=== PATIENT | female | born 1940 | race Caucasian/White ===

== ENCOUNTER 2017-02-04 14:34 | Inpatient (IN) | payer MEDICARE, BC ==
[~2017-02-04] VITALS: Ht 157.5 cm; Wt 62.6 kg
[2017-02-04 14:00] VITALS: BP 118/65; PULSE 89; RESP 18; Ht 157.5 cm; Wt 62.6 kg
[2017-02-04] MEDS ORDERED: LORAZEPAM 0.5 MG TAB PO PRN (17:00)
[2017-02-04] MEDS ORDERED: ACETAMINOPHEN 650 MG SUPP PR PRN (17:00)
[2017-02-04] MEDS: ALBUTEROL 0.083% (NEB) 2.5 MG/3 ML AMP INH SCH (17:38)
[2017-02-04 17:46] LABS: ADD UMIC YES; UR ASCORBIC ACID 20 mg/dL (NEGATIVE); UR BILIRUBIN (Dip) NEGATIVE (NEGATIVE); UR BLOOD (Dip) 3+ mg/dL (NEGATIVE); UR CLARITY CLEAR (CLEAR); UR COLOR STRAW (YELLOW); UR GLUCOSE (Dip) NEGATIVE (NEGATIVE); UR KETONES (Dip) NEGATIVE (NEGATIVE); UR LEUKOCYTE ESTERASE (Dip) 1+ Leu/ul (NEGATIVE); UR NITRITE (Dip) NEGATIVE (NEGATIVE); UR RBC 1 /HPF (0-5); UR SPECIFIC GRAVITY (Dip) 1.006 (1.003-1.030); UR TOTAL PROTEIN (Dip) NEGATIVE (NEGATIVE); UR UROBILINOGEN (Dip) NEGATIVE (NEGATIVE)
[2017-02-04] MEDS ORDERED: MICONAZOLE 2% 57 GM Ointment TOP PRN (18:00)
--- NOTE | 2017-02-04 19:48 | HP ---
DATE OF ADMISSION: 02/04/2017 HISTORY OF PRESENT ILLNESS: The patient is a 77-year-old, female, with history of thyroid cancer, status post radiation in 2007, and history of breast cancer, status post bilateral mastectomy in 2006. The patient is status post cardiopulmonary arrest in December,, status post tracheostomy and G-tube placement. The patient also was treated for a right pneumothorax and aspiration pneumonia at [facility] and was transferred to [facility]. The patient's condition improved. The patient's tracheostomy is currently capped and she was able to breathe comfortably on supplemental oxygen via nasal cannula. However, the patient has a pulmonary debility and was admitted to acute rehabilitation. During examination, patient is awake and alert. Denies any chest pain, denies shortness of breath. Denies any nausea or vomiting. Denies fever, denies chills. PAST MEDICAL HISTORY: Per HPI. PAST SURGICAL HISTORY: Per HPI. SOCIAL HISTORY: Patient used to smoke, quit about 20 years ago. The patient drinks alcohol occasionally. Patient denies any illicit drug use. ALLERGIES: NO KNOWN ALLERGIES. MEDICATIONS: On admission, Tylenol, albuterol, ferrous sulfate, heparin, hydralazine p.r.n., Prevacid, Dilaudid p.r.n., Synthroid 50 mcg G-tube daily, Ativan p.r.n. for agitation, miconazole unscented powder, Seroquel, Senna, Zoloft, Ambien. REVIEW OF SYSTEMS: Twelve point review of system is negative unless mentioned in the HPI. PHYSICAL EXAMINATION: GENERAL: Well-developed female, currently is awake, alert. VITAL SIGNS: Temperature is 98.3, pulse is 90, blood pressure 118/65, respiratory rate 18, oxygen saturation 97 percent on 2 L nasal cannula. HEENT: Head is atraumatic, normocephalic. Pupils equal, round, reactive to light. Mucosa is pink and moist. NECK: Supple. There is a tracheostomy at the base of the neck, which is currently capped. LUNGS: Clear bilaterally. No rhonchi, wheezes, rales noted. CARDIOVASCULAR: Normal S1, S2. No murmurs, gallops, clicks, rubs noted. ABDOMEN: Round, soft, nondistended, nontender. G-tube with intact stoma. EXTREMITIES: No edema, clubbing, cyanosis. Pulses equal bilaterally 2 plus. SKIN: No rash or petechiae noted. NEUROLOGICAL: Patient is awake, alert, and oriented times 4. No focal deficits noted. Motor strength 5 out of 5 in all extremities. ASSESSMENT: 1. Pulmonary debility. 2. Tracheostomy. 3. Dysphagia with PEG. Will obtain swallow evaluation. 4. History of thyroid cancer, status post radiation. 5. Continue patient on current dose of Synthroid. 6. History of acute hypoxemic respiratory failure with tracheostomy and capping and history of aspiration pneumonia, pneumothorax, and secretion retention. Continue oxygen supplementation and trach care and continue breathing treatment. 7. History of breast cancer, status post bilateral mastectomy. 8. Hypertension. 9. Depression. Continue Zoloft. further recommendations based on clinical course. PLAN: Further recommendations based on clinical course. Plan of care discussed with Dr. Root. Dictated By: Zeinab Maki NP /heber/travis /Document#: [id number]
[2017-02-04 20:00] VITALS: BP 121/61; RESP 20
[2017-02-04] MEDS ORDERED: ZOLPIDEM 5 MG TAB PO PRN (21:00)
[2017-02-04] MEDS: NYSTATIN 30 GM POWDER BTL TOP SCH (21:13)
[2017-02-04] MEDS: DOCUSATE SODIUM 10 MG/ML (10ML CUP) GTB SCH (21:13)
[2017-02-04] MEDS: HEPARIN 5,000 UNIT/0.5 ML VIAL SC SCH (21:15)
[2017-02-04] MEDS: SENNA TAB GTB SCH (21:16)
[2017-02-04] MEDS: QUETIAPINE 25 MG TAB GTB SCH (21:16)
[2017-02-04 21:20] VITALS: BP 147/68; PULSE 92; RESP 18
[2017-02-04] MEDS: CHLORHEXIDINE GLUCONATE 15 ML UD CUP MT SCH (21:20)
[2017-02-05 02:00] VITALS: BP 125/63; RESP 20
[2017-02-05] MEDS: LEVOTHYROXINE 50 MCG TAB GTB SCH (06:14)
[2017-02-05] MEDS: LANSOPRAZOLE 30 MG CAP GTB SCH (06:15)
[2017-02-05 07:38] LABS: BASOPHILS % 0.5 % (0.0-2.0); EOSINOPHILS # 0.8 10^3/ul (0.0-0.5); EOSINOPHILS % 11.4 % (0.0-7.0); HEMATOCRIT 27.5 % (37.0-47.0); HEMOGLOBIN 8.7 g/dl (12.0-16.0); LYMPHOCYTES # 1.6 10^3/ul (0.8-2.9); MEAN CORPUSCULAR HEMOGLOBIN 30.6 pg (29.0-33.0); MEAN CORPUSCULAR HGB CONC 31.6 g/dl (32.0-37.0); MEAN CORPUSCULAR VOLUME 96.8 fl (82.0-101.0); MEAN PLATELET VOLUME 8.7 fl (7.4-10.4); MONOCYTE # 0.9 10^3/ul (0.3-0.9); MONOCYTES % 12.3 % (0.0-11.0); NEUTROPHIL # 3.8 10^3/ul (1.6-7.5); NEUTROPHILS % 52.2 % (39.0-77.0); PLATELET COUNT 328 10^3/UL (140-415); RED BLOOD COUNT 2.84 10^6/ul (4.20-5.40); RED CELL DISTRIBUTION WIDTH 15.8 % (11.5-14.5); WHITE BLOOD COUNT 7.3 10^3/ul (4.8-10.8)
[2017-02-05 08:03] LABS: ALBUMIN 3.4 g/dl (3.3-4.9); ALBUMIN/GLOBULIN RATIO 0.82; BILIRUBIN,INDIRECT 0.1 mg/dl (0-1.1); BILIRUBIN,TOTAL 0.1 mg/dl (0.2-1.3); CALCIUM 8.9 mg/dl (8.4-10.2); CREATININE 0.91 mg/dl (0.44-1.00); POTASSIUM 4.8 mmol/L (3.5-5.1); TOTAL PROTEIN 7.5 g/dl (6.1-8.1)
[2017-02-05] MEDS: FERROUS SULFATE 60 MG/ML 5ML CUP GTB SCH (08:32)
[2017-02-05] MEDS: DOCUSATE SODIUM 10 MG/ML (10ML CUP) GTB SCH ×2 (08:32→20:45)
[2017-02-05] MEDS: SERTRALINE 50 MG TAB PEG SCH (08:33)
[2017-02-05] MEDS: SENNA TAB GTB SCH ×2 (08:34→20:43)
[2017-02-05] MEDS: HEPARIN 5,000 UNIT/0.5 ML VIAL SC SCH ×2 (08:34→20:43)
[2017-02-05] MEDS: CHLORHEXIDINE GLUCONATE 15 ML UD CUP MT SCH ×2 (08:35→21:00)
[2017-02-05] MEDS: NYSTATIN 30 GM POWDER BTL TOP SCH ×2 (08:36→20:45)
[2017-02-05] MEDS: ALBUTEROL 0.083% (NEB) 2.5 MG/3 ML AMP INH SCH ×3 (09:55→16:50)
--- NOTE | 2017-02-05 12:50 | CONS ---
DATE OF ADMISSION: 02/04/2017 DATE OF CONSULTATION: 02/05/2017 This is a rehabilitation post admission physician evaluation. REHABILITATION IMPAIRMENT CATEGORY: Pulmonary debility secondary to acute respiratory failure. ACTIVE COMORBIDITIES: 1. Tracheostomy. 2. Dysphagia. 3. Thyroid CA, status post XRT. 4. Hypertension. 5. History of breast CA. 6. 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 7. Impairments in self-care and mobility. HISTORY OF PRESENT ILLNESS: The patient is a very pleasant 77- year-old right-handed female with a history of thyroid cancer and breast cancer, who was admitted with increased shortness of breath. Patient was noted to have acute hypoxemic and hypercapnic respiratory failure after a cardiac arrest. This reportedly was after an aspiration. The patient did require tracheostomy, in addition to G-tube placement. The patient had made some significant improvement and was later transferred to [place] for continued respiratory care. Patient's respiratory status continued to improve and now she has been cleared to transfer to the rehabilitation unit for comprehensive interdisciplinary rehab care. FUNCTIONAL HISTORY: Prior to recent events, she was independent in self-care tasks and mobility. Currently, she requires minimal- to-moderate assist for self-care mobility tasks. SOCIAL HISTORY: Patient reports living at home with her and hopes to return home upon discharge. PAST SURGICAL HISTORY: 1. History of breast cancer, status post bilateral mastectomy. 2. History of thyroid cancer, status post radiation therapy. 3. Depression. 4. Hypothyroidism. 5. Hypertension. 6. 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 MEDICATION: 1. Albuterol inhaler. 2. Colace 100 mg b.i.d. 3. Ferrous sulfate. 4. Haldol p.r.n. 5. Heparin 5000 units subcu q.12. 6. Apresoline 25 mg b.i.d. 7. Prevacid 30 mg q.day. 8. Synthroid 50 mcg q.day. 9. Ativan p.r.n. 10. Seroquel 50 mg p.o. at bedtime. 11. Senokot 1 tab p.o. b.i.d. 12. Zoloft 25 mg p.o. q.day. ALLERGIES: PATIENT WITH NO KNOWN DRUG ALLERGIES. PHYSICAL EXAMINATION: VITAL SIGNS: The patient is currently afebrile with stable vital signs. HEENT: The extraocular motions are intact. Oropharynx is clear. NECK: Supple. LUNGS: Clear anteriorly. HEART: S1, S2. ABDOMEN: Soft, nontender. Positive bowel sounds. NEUROLOGIC: She is awake and alert and she is oriented to person and hospital. She will follow simple one-step commands. She demonstrates good strength in the right upper extremity. The left upper extremity has good distal strength, but patient with decreased forward flexion and abduction. The patient has antigravity strength in bilateral lower extremity. PLAN: The patient has been admitted for comprehensive interdisciplinary acute rehab and is anticipated to tolerate 3 hours of daily therapy in divided doses for at least 5/7 days a week. The treatment plan will include: 1. Physical therapy to focus on bed mobility, transfers, and household ambulation with the goal of having patient reach a standby assist level. 2. Occupational therapy to focus on hygiene, grooming, dressing, bathing and toileting activities with goal of having patient reach standby assist level. 3. Speech therapy for full cognitive assessment and retraining in addition to dysphagia management with goal of having patient return to baseline cognition in addition to meet nutritional needs by mouth. 4. Rehabilitation nursing for carry over therapeutic interventions. The goal of continent of bowel, bladder, and the goal of the patient and family education with regards to the aforementioned issues. 5. Patient is followed closely by Pulmonology with the goal of having patient decannulated while on rehab. ESTIMATED LENGTH OF STAY: 14 days. DISPOSITION GOAL: Home. REHABILITATION BARRIER: Trach. INTERVENTION FOR BARRIER: Close pulmonary management. I acknowledge I performed a full physical examination on this patient within 24 hours of admission to the rehabilitation unit and believe the patient is a good candidate for comprehensive interdisciplinary rehab care and is anticipated to make reasonable goals in a reasonable period of time as outlined above. Dictated By: Migue Naik MD /heber/lynda /Document#: [id number]
[2017-02-05] MEDS ORDERED: VITAMIN A & D 5 GM OINT PACKET TOP ONE (13:07)
--- NOTE | 2017-02-05 14:34 | PN ---
Date/Time of Note Date/Time of Note DATE: 02/05/17 TIME: 14:31 Assessment/Plan VTE Prophylaxis VTE Prophylaxis Intervention: SCD's Lines/Catheters IV [facility] Saline Lock Urinary Cath still in place: No Assessment/Plan Chief Complaint/Hosp Course Patient able to work with physical therapy, currently undergoing swallow evaluation denies any shortness of breath Problems: Assessment/Plan 1. Pulmonary debility secondary to acute respiratory failure. 2. Tracheostomy, currently capped. 3. Dysphagia with PEG. pending swallow evaluation. 4. History of thyroid cancer, status post radiation. 5. Continue patient on current dose of Synthroid. 6. History of acute hypoxemic respiratory failure with tracheostomy, history of aspiration pneumonia, pneumothorax, and secretion retention. Continue oxygen supplementation and trach care and continue breathing treatment. 7. History of breast cancer, status post bilateral mastectomy. 8. Hypertension. 9. Depression. Continue Zoloft. 10. Anemia, continue iron supplements monitor hemoglobin and hematocrit. Further recommendations based on clinical course. Plan of care discussed with Dr. Root. Exam/Review of Systems Vital Signs Vitals Vital Signs Date Time Temp Pulse Resp B/P Pulse Ox O2 Delivery O2 Flow Rate FiO2 02/05/17 02:00 98.7 75 20 125/63 93 02/04/17 21:50 21 02/04/17 21:20 Room Air Intake and Output 02/04/17 02/04/17 02/05/17 15:00 23:00 07:00 Intake Total 395 ml 1660 ml Balance 395 ml 1660 ml Exam Constitutional: oriented Head: normocephalic Neck: other (Tracheostomy) Respiratory: normal air movement Cardiovascular: nl pulses Gastrointestinal: non-tender, other (G-tube), soft Extremities: normal pulses Results Result Diagram: 02/05/17 0653 02/05/17 0653 Results 24 hrs Laboratory Tests Test 02/04/17 17:30 02/05/17 06:53 Urine Color STRAW Urine Clarity CLEAR Urine pH 7.0 Urine Specific Tiro 1.006 Urine Ketones NEGATIVE Urine Nitrite NEGATIVE Urine Bilirubin NEGATIVE Urine Urobilinogen NEGATIVE Urine Leukocyte Esterase 1+ H Urine Microscopic RBC 1 Urine Microscopic WBC 5 Urine Hemoglobin 3+ H Urine Glucose NEGATIVE Urine Total Protein NEGATIVE White Blood Count 7.3 Red Blood Count 2.84 L Hemoglobin 8.7 L Hematocrit 27.5 L Mean Corpuscular Volume 96.8 Mean Corpuscular Hemoglobin 30.6 Mean Corpuscular Hemoglobin Concent 31.6 L Red Cell Distribution Width 15.8 H Platelet Count 328 Mean Platelet Volume 8.7 Neutrophils % 52.2 Lymphocytes % 22.0 Monocytes % 12.3 H Eosinophils % 11.4 H Basophils % 0.5 Nucleated Red Blood Cells % 0.0 Neutrophils # 3.8 Lymphocytes # 1.6 Monocytes # 0.9 Eosinophils # 0.8 H Basophils # 0.0 Nucleated Red Blood Cells # 0.0 Sodium Level 133 L Potassium Level 4.8 Chloride Level 96 L Carbon Dioxide Level 30 Anion Gap 12 Blood Urea Nitrogen 34 H Creatinine 0.91 Glucose Level 107 Calcium Level 8.9 Total Bilirubin 0.1 L Direct Bilirubin 0.00 Indirect Bilirubin 0.1 Aspartate Amino Transf (AST/SGOT) 53 H Alanine Aminotransferase (ALT/SGPT) 48 Alkaline Phosphatase 115 Total Protein 7.5 Albumin 3.4 Globulin 4.10 H Albumin/Globulin Ratio 0.82 Medications Medications Current Medications Sertraline HCl (Zoloft) 25 mg DAILY PEG Last administered on 02/05/17 08:33; Admin Dose 25 MG; Start 02/05/17 at 09:00 Zolpidem Tartrate (Ambien) 5 mg HS PRN PO INSOMNIA; Start 02/04/17 at 21:00 Lansoprazole (Prevacid) 30 mg DAILY@06 GTB Last administered on 02/05/17 06:15 ; Admin Dose 30 MG; Start 02/05/17 at 06:00 Levothyroxine Sodium (Synthroid) 50 mcg DAILY@06 GTB Last administered on 06:14; Admin Dose 50 MCG; Start 02/05/17 at 06:00 Lorazepam (Ativan) 0.5 mg Q6H PRN PO AGITATION/ANXIETY; Start 02/04/17 at 17:00 Miconazole Nitrate (CRITIC AID Oint) 1 applic BID PRN TOP ITCHING/RASH; Start 02/04/17 at 18:00 Nystatin (Nystatin Powder) 1 applic BID TOP Last administered on 02/05/17 08: 36; Admin Dose 1 APPLIC; Start 02/04/17 at 21:00 Quetiapine Fumarate (Seroquel) 50 mg QHS GTB Last administered on 02/04/17 21: 16; Admin Dose 50 MG; Start 02/04/17 at 21:00 Senna (Senokot) 1 tab BID GTB Last administered on 02/05/17 08:34; Admin Dose 1 TAB; Start 02/04/17 at 21:00 Acetaminophen (Tylenol Supp) 650 mg Q6H PRN DE PAIN AND OR ELEVATED TEMP; Start 02/04/17 at 17:00 Chlorhexidine Gluconate (Peridex) 15 ml BID MT Last administered on 02/05/17 08:35; Admin Dose 15 ML; Start 02/04/17 at 21:00 Docusate Sodium (Colace Liquid Cup) 100 mg BID GTB Last administered on 08:32; Admin Dose 100 MG; Start 02/04/17 at 21:00 Ferrous Sulfate (Feosol Liquid Cup) 300 mg DAILY GTB Last administered on 08:32; Admin Dose 300 MG; Start 02/05/17 at 09:00 Heparin Sodium (Porcine) (Heparin (5000 Units/0.5 ml)) 5,000 unit Q12 SC Last administered on 02/05/17 08:34; Admin Dose 5,000 UNIT; Start 02/04/17 at 21:00 Hydralazine HCl (Apresoline) 25 mg BID GTB Last administered on 02/05/17 08:35 ; Admin Dose 25 MG; Start 02/04/17 at 21:00 CHARY NICOLAS Feb 05, 2017 14:34
[2017-02-05] MEDS: ACETAMINOPHEN 650MG/20.3ML CUP GTB PRN (16:32)
[2017-02-05 20:00] VITALS: BP 106/55; RESP 20
--- NOTE | 2017-02-05 20:34 | CONS ---
DATE OF ADMISSION: 02/04/2017 DATE OF CONSULTATION: 02/05/2017 TYPE OF CONSULTATION: Psychological. REFERRING PHYSICIAN: Migue Holm MD REASON FOR CONSULTATION: This consultation requested by Dr. Holm in order to evaluate the cognitive and emotional function of this patient related to her present medical condition. HISTORY OF PRESENT ILLNESS: The patient is a 77-year-old female. The patient has a history of thyroid cancer with post-radiation in 2007. History of breast cancer. Post bilateral mastectomy in 2006. The patient is status post-cardiopulmonary arrest in 12/2016 and status post-tracheostomy and G-tube placement. The patient was cleared medically and was transferred to the acute rehabilitation unit for acute multidisciplinary rehabilitation. The patient is frustrated by all her medical problems. The patient is having problems with her throat, but says that there isn't much they can do for her, the patient does state that she is both anxious and depressed. Depression is related to all of her medical problems that she has been dealing with. The patient is motivated and does want to get better. FAMILY HISTORY/SOCIAL HISTORY: The patient reports that she lives with her and adult daughter in a condominium in [place]. The patient says that the condominium is on the 1st floor and level. The patient does want to return there after discharge. SUBSTANCE USE: The patient reports that she does drink occasionally. The patient reports that she does not smoke any longer. The patient did stop smoke, but stopped 20 years ago. MENTAL STATUS EXAMINATION: APPEARANCE: The patient was seen in bed. She appears to be of average height and weight. The patient wears glasses and is right-handed. BEHAVIOR: The patient was cooperative during the consultation. The patient did attempt to answer all questions presented to her by the interviewer. MOOD AND AFFECT: The patient's mood appears to be depressed. Affect does appear to be anxious. PERCEPTION: The patient reports no hallucinations or delusions. The patient was alert to person, place, situation, and time. MEMORY AND COGNITION: The patient's memory and cognition was basically intact. She was able to remember recent and remote events. The patient was able to say the name of the hospital. The patient was able to say the month and the year. The patient was able to say who the President of [facility] is, the governor of the state, and the Mayor of the [facility]. The patient was unable to spell world backwards correctly. The patient was only able to do 1 serial 7 subtraction from 100 and then made an error. Overall given the patient's medical condition, and all the things going on. Her overall memory and cognition appear to be basically intact. INTELLIGENCE: Intelligence appears to fall in the average range. INSIGHT: Fair. JUDGMENT: Fair. THOUGHT CONTENT: The patient is concerned about her present medical condition. The patient is frustrated, depressed and anxious about all her medical problems. MEDICATION: The patient is on Zoloft 25 mg daily and Ambien 5 mg at bedtime as needed. DISCUSSION: The patient can likely benefit from some cognitive/behavioral psychotherapy while she is on the unit. The psychotherapy would focus on her underlying level of depression that relates all her medical problems. 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 Thank you very much, Dr. Holm, for referring this individual. Please do not hesitate to call if they have additional questions. Dictated By: Ernesto Neff, PHD /heber/deandre /Document#: [id number]
[2017-02-05] MEDS: QUETIAPINE 25 MG TAB GTB SCH (20:44)
[2017-02-06] MEDS: LANSOPRAZOLE 30 MG CAP GTB SCH (05:32)
[2017-02-06] MEDS: LEVOTHYROXINE 50 MCG TAB GTB SCH (05:32)
[2017-02-06 07:30] VITALS: BP 141/64; RESP 20
[2017-02-06] MEDS ORDERED: LACTULOSE 30ML CUP PO PRN (08:30)
[2017-02-06] MEDS: ALBUTEROL 0.083% (NEB) 2.5 MG/3 ML AMP INH SCH ×3 (09:00→17:21)
[2017-02-06] MEDS: NYSTATIN 30 GM POWDER BTL TOP SCH ×2 (10:01→21:22)
[2017-02-06] MEDS: ACETAMINOPHEN 650MG/20.3ML CUP GTB PRN (10:02)
[2017-02-06] MEDS: FERROUS SULFATE 60 MG/ML 5ML CUP GTB SCH (10:02)
[2017-02-06] MEDS: SERTRALINE 50 MG TAB PEG SCH (10:02)
[2017-02-06] MEDS: SENNA TAB GTB SCH ×2 (10:03→21:00)
[2017-02-06] MEDS: DOCUSATE SODIUM 10 MG/ML (10ML CUP) GTB SCH ×2 (10:03→21:00)
[2017-02-06] MEDS: CHLORHEXIDINE GLUCONATE 15 ML UD CUP MT SCH ×2 (10:03→21:22)
[2017-02-06] MEDS: HEPARIN 5,000 UNIT/0.5 ML VIAL SC SCH ×2 (10:04→21:31)
--- NOTE | 2017-02-06 12:36 | CONS ---
Date/Time of Note Date/Time of Note DATE: 02/06/17 TIME: 12:34 Consult Date/Type/Reason Admit Date/Time Feb 04, 2017 at 14:34 Initial Consult Date Subjective Comfortable Objective pulm-cta min/mod assist Vital Signs Date Time Temp Pulse Resp B/P Pulse Ox O2 Delivery O2 Flow Rate FiO2 02/06/17 07:30 98.7 92 20 141/64 94 02/05/17 16:52 21 02/04/17 21:20 Room Air Intake and Output 02/05/17 02/05/17 02/06/17 15:00 23:00 07:00 Intake Total 240 ml 685 ml 1270 ml Output Total 801 ml Balance 240 ml -116 ml 1270 ml Results/Medications Result Diagram: 02/05/17 0653 02/05/17 0653 Medications Current Medications Sertraline HCl (Zoloft) 25 mg DAILY PEG Last administered on 02/06/17 10:02; Admin Dose 25 MG; Start 02/05/17 at 09:00 Zolpidem Tartrate (Ambien) 5 mg HS PRN PO INSOMNIA; Start 02/04/17 at 21:00 Lansoprazole (Prevacid) 30 mg DAILY@06 GTB Last administered on 02/06/17 05:32 ; Admin Dose 30 MG; Start 02/05/17 at 06:00 Levothyroxine Sodium (Synthroid) 50 mcg DAILY@06 GTB Last administered on 05:32; Admin Dose 50 MCG; Start 02/05/17 at 06:00 Lorazepam (Ativan) 0.5 mg Q6H PRN PO AGITATION/ANXIETY; Start 02/04/17 at 17:00 Miconazole Nitrate (CRITIC AID Oint) 1 applic BID PRN TOP ITCHING/RASH; Start 02/04/17 at 18:00 Nystatin (Nystatin Powder) 1 applic BID TOP Last administered on 02/06/17 10: 01; Admin Dose 1 APPLIC; Start 02/04/17 at 21:00 Quetiapine Fumarate (Seroquel) 50 mg QHS GTB Last administered on 02/05/17 20: 44; Admin Dose 50 MG; Start 02/04/17 at 21:00 Senna (Senokot) 1 tab BID GTB Last administered on 02/06/17 10:03; Admin Dose 1 TAB; Start 02/04/17 at 21:00 Acetaminophen (Tylenol Supp) 650 mg Q6H PRN DE PAIN AND OR ELEVATED TEMP; Start 02/04/17 at 17:00 Chlorhexidine Gluconate (Peridex) 15 ml BID MT Last administered on 02/06/17 10:03; Admin Dose 15 ML; Start 02/04/17 at 21:00 Docusate Sodium (Colace Liquid Cup) 100 mg BID GTB Last administered on 10:03; Admin Dose 100 MG; Start 02/04/17 at 21:00 Ferrous Sulfate (Feosol Liquid Cup) 300 mg DAILY GTB Last administered on 10:02; Admin Dose 300 MG; Start 02/05/17 at 09:00 Heparin Sodium (Porcine) (Heparin (5000 Units/0.5 ml)) 5,000 unit Q12 SC Last administered on 02/06/17 10:04; Admin Dose 5,000 UNIT; Start 02/04/17 at 21:00 Hydralazine HCl (Apresoline) 25 mg BID GTB Last administered on 02/06/17 10:03 ; Admin Dose 25 MG; Start 02/04/17 at 21:00 Acetaminophen (Tylenol Liquid) 650 mg Q4H PRN GTB PAIN AND OR ELEVATED TEMP Last administered on 02/06/17 10:02; Admin Dose 650 MG; Start 02/05/17 at 16:30 Lactulose (Enulose) 20 gm DAILY PRN PO CONSTIPATION Last administered on 10:02; Admin Dose 20 GM; Start 02/06/17 at 08:30 Assessment/Plan Additional Assessment/Plan rehab-Pulmonary debility secondary to acute respiratory failure. Tolerating rehab program well Pulm- Tracheostomy care Dysphagia- speech therapy Thyroid CA, status post XRT. Hypertension. History of breast CA. 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 LISA ORDOÑEZ MD Feb 06, 2017 12:36
[2017-02-06 20:00] VITALS: BP 118/58; RESP 20
[2017-02-06] MEDS: QUETIAPINE 25 MG TAB GTB SCH (21:22)
--- NOTE | 2017-02-06 21:23 | PN ---
Date/Time of Note Date/Time of Note DATE: 02/06/17 TIME: 21:22 Assessment/Plan VTE Prophylaxis VTE Prophylaxis Intervention: other Lines/Catheters IV [facility] Saline Lock Urinary Cath still in place: No Assessment/Plan Assessment/Plan 1. Pulmonary debility secondary to acute respiratory failure. 2. Tracheostomy, currently capped. 3. Dysphagia with PEG. pending swallow evaluation. 4. History of thyroid cancer, status post radiation. 5. Continue patient on current dose of Synthroid. 6. History of acute hypoxemic respiratory failure with tracheostomy, history of aspiration pneumonia, pneumothorax, and secretion retention. Continue oxygen supplementation and trach care and continue breathing treatment. 7. History of breast cancer, status post bilateral mastectomy. 8. Hypertension. 9. Depression. Continue Zoloft. 10. Anemia, continue iron supplements monitor hemoglobin and hematocrit. Further recommendations based on clinical course. Plan of care discussed with Dr. Root. Subjective 24 Hr Interval Summary Free Text/Dictation ressting in bed, feels better, tolerates PT, has bm x1, no new complaints reported by staff Constitutional: improved Respiratory: no complaints Cardiovascular: no complaints Gastrointestinal: no complaints Genitourinary: no complaints Musculoskeletal: other (feels tired after PT today) Exam/Review of Systems Vital Signs Vitals Vital Signs Date Time Temp Pulse Resp B/P Pulse Ox O2 Delivery O2 Flow Rate FiO2 02/06/17 17:22 96 2.0 02/06/17 17:21 92 20 Nasal Cannula 02/06/17 07:30 98.7 141/64 02/05/17 16:52 21 Intake and Output 02/05/17 02/05/17 02/06/17 15:00 23:00 07:00 Intake Total 240 ml 685 ml 1270 ml Output Total 801 ml Balance 240 ml -116 ml 1270 ml Exam Constitutional: alert Respiratory: diminished breath sounds, normal air movement Cardiovascular: regular rate and rhythm Gastrointestinal: non-tender, soft Musculoskeletal: nl extremities to inspection Results Result Diagram: 02/05/17 0653 02/05/17 0653 Medications Medications Current Medications Sertraline HCl (Zoloft) 25 mg DAILY PEG Last administered on 02/06/17t 10:02; Admin Dose 25 MG; Start 02/05/17 at 09:00 Zolpidem Tartrate (Ambien) 5 mg HS PRN PO INSOMNIA; Start 02/04/17 at 21:00 Lansoprazole (Prevacid) 30 mg DAILY@06 GTB Last administered on 02/06/17 05:32 ; Admin Dose 30 MG; Start 02/05/17 at 06:00 Levothyroxine Sodium (Synthroid) 50 mcg DAILY@06 GTB Last administered on 05:32; Admin Dose 50 MCG; Start 02/05/17 at 06:00 Lorazepam (Ativan) 0.5 mg Q6H PRN PO AGITATION/ANXIETY; Start 02/04/17 at 17:00 Miconazole Nitrate (CRITIC AID Oint) 1 applic BID PRN TOP ITCHING/RASH; Start 02/04/17 at 18:00 Nystatin (Nystatin Powder) 1 applic BID TOP Last administered on 02/06/17 10: 01; Admin Dose 1 APPLIC; Start 02/04/17 at 21:00 Quetiapine Fumarate (Seroquel) 50 mg QHS GTB Last administered on 02/05/17 20: 44; Admin Dose 50 MG; Start 02/04/17 at 21:00 Senna (Senokot) 1 tab BID GTB Last administered on 02/06/17 10:03; Admin Dose 1 TAB; Start 02/04/17 at 21:00 Acetaminophen (Tylenol Supp) 650 mg Q6H PRN [place] PAIN AND OR ELEVATED TEMP; Start 02/04/17 at 17:00 Chlorhexidine Gluconate (Peridex) 15 ml BID MT Last administered on 02/06/17 10:03; Admin Dose 15 ML; Start 02/04/17 at 21:00 Docusate Sodium (Colace Liquid Cup) 100 mg BID GTB Last administered on 10:03; Admin Dose 100 MG; Start 02/04/17 at 21:00 Ferrous Sulfate (Feosol Liquid Cup) 300 mg DAILY GTB Last administered on 10:02; Admin Dose 300 MG; Start 02/05/17 at 09:00 Heparin Sodium (Porcine) (Heparin (5000 Units/0.5 ml)) 5,000 unit Q12 SC Last administered on 02/06/17 10:04; Admin Dose 5,000 UNIT; Start 02/04/17 at 21:00 Hydralazine HCl (Apresoline) 25 mg BID GTB Last administered on 02/06/17 10:03 ; Admin Dose 25 MG; Start 02/04/17 at 21:00 Acetaminophen (Tylenol Liquid) 650 mg Q4H PRN GTB PAIN AND OR ELEVATED TEMP Last administered on 02/06/17 10:02; Admin Dose 650 MG; Start 02/05/17 at 16:30 Lactulose (Enulose) 20 gm DAILY PRN PO CONSTIPATION Last administered on 10:02; Admin Dose 20 GM; Start 02/06/17 at 08:30 ROMEO BRIAN Feb 06, 2017 21:23
[2017-02-07 02:24] VITALS: BP 128/62; RESP 20
[2017-02-07] MEDS: LANSOPRAZOLE 30 MG CAP GTB SCH (05:24)
[2017-02-07] MEDS: LEVOTHYROXINE 50 MCG TAB GTB SCH (05:24)
[2017-02-07 07:00] VITALS: BP 163/72; RESP 20
[2017-02-07] MEDS: ALBUTEROL 0.083% (NEB) 2.5 MG/3 ML AMP INH SCH ×3 (08:34→17:18)
[2017-02-07] MEDS: SERTRALINE 50 MG TAB PEG SCH (10:08)
[2017-02-07] MEDS: CHLORHEXIDINE GLUCONATE 15 ML UD CUP MT SCH ×2 (10:08→21:33)
[2017-02-07] MEDS: HEPARIN 5,000 UNIT/0.5 ML VIAL SC SCH ×2 (10:10→21:34)
[2017-02-07] MEDS: DOCUSATE SODIUM 10 MG/ML (10ML CUP) GTB SCH ×2 (10:10→21:00)
[2017-02-07] MEDS: FERROUS SULFATE 60 MG/ML 5ML CUP GTB SCH (10:10)
[2017-02-07] MEDS: NYSTATIN 30 GM POWDER BTL TOP SCH ×2 (10:11→21:33)
[2017-02-07] MEDS: SENNA TAB GTB SCH ×2 (10:12→21:00)
--- NOTE | 2017-02-07 12:11 | CONS ---
Date/Time of Note Date/Time of Note DATE: 02/07/17 TIME: 12:10 Consult Date/Type/Reason Admit Date/Time Feb 04, 2017 at 14:34 Subjective Slept well last night Objective pulm-cta abd-soft mod assist transfer Vital Signs Date Time Temp Pulse Resp B/P Pulse Ox O2 Delivery O2 Flow Rate FiO2 02/07/17 08:34 2.0 02/07/17 02:35 94 26 94 21 02/07/17 02:24 98.7 128/62 02/06/17 17:21 Nasal Cannula Intake and Output 02/06/17 02/06/17 02/07/17 15:00 23:00 07:00 Intake Total 1250 ml Balance 1250 ml Results/Medications Result Diagram: 02/05/17 0653 02/05/17 0653 Medications Current Medications Sertraline HCl (Zoloft) 25 mg DAILY PEG Last administered on 02/07/17 10:08; Admin Dose 25 MG; Start 02/05/17 at 09:00 Zolpidem Tartrate (Ambien) 5 mg HS PRN PO INSOMNIA; Start 02/04/17 at 21:00 Lansoprazole (Prevacid) 30 mg DAILY@06 GTB Last administered on 02/07/17 05:24 ; Admin Dose 30 MG; Start 02/05/17 at 06:00 Levothyroxine Sodium (Synthroid) 50 mcg DAILY@06 GTB Last administered on 05:24; Admin Dose 50 MCG; Start 02/05/17 at 06:00 Lorazepam (Ativan) 0.5 mg Q6H PRN PO AGITATION/ANXIETY; Start 02/04/17 at 17:00 Miconazole Nitrate (CRITIC AID Oint) 1 applic BID PRN TOP ITCHING/RASH; Start 02/04/17 at 18:00 Nystatin (Nystatin Powder) 1 applic BID TOP Last administered on 02/07/17 10: 11; Admin Dose 1 APPLIC; Start 02/04/17 at 21:00 Quetiapine Fumarate (Seroquel) 50 mg QHS GTB Last administered on 02/06/17 21: 22; Admin Dose 50 MG; Start 02/04/17 at 21:00 Senna (Senokot) 1 tab BID GTB Last administered on 02/07/17 10:12; Admin Dose 1 TAB; Start 02/04/17 at 21:00 Acetaminophen (Tylenol Supp) 650 mg Q6H PRN [place] PAIN AND OR ELEVATED TEMP; Start 02/04/17 at 17:00 Chlorhexidine Gluconate (Peridex) 15 ml BID MT Last administered on 02/07/17 10:08; Admin Dose 15 ML; Start 02/04/17 at 21:00 Docusate Sodium (Colace Liquid Cup) 100 mg BID GTB Last administered on 10:10; Admin Dose 100 MG; Start 02/04/17 at 21:00 Ferrous Sulfate (Feosol Liquid Cup) 300 mg DAILY GTB Last administered on 10:10; Admin Dose 300 MG; Start 02/05/17 at 09:00 Heparin Sodium (Porcine) (Heparin (5000 Units/0.5 ml)) 5,000 unit Q12 SC Last administered on 02/07/17 10:10; Admin Dose 5,000 UNIT; Start 02/04/17 at 21:00 Hydralazine HCl (Apresoline) 25 mg BID GTB Last administered on 02/07/17 10:09 ; Admin Dose 25 MG; Start 02/04/17 at 21:00 Acetaminophen (Tylenol Liquid) 650 mg Q4H PRN GTB PAIN AND OR ELEVATED TEMP Last administered on 02/06/17 10:02; Admin Dose 650 MG; Start 02/05/17 at 16:30 Lactulose (Enulose) 20 gm DAILY PRN PO CONSTIPATION Last administered on 10:02; Admin Dose 20 GM; Start 02/06/17 at 08:30 Assessment/Plan Additional Assessment/Plan rehab-Pulmonary debility secondary to acute respiratory failure. Tolerating rehab program well Pulm- Tracheostomy care Dysphagia- speech therapy Thyroid CA, status post XRT. Hypertension. History of breast CA. 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 LISA ORDOÑEZ MD Feb 07, 2017 12:11
[2017-02-07 13:10] VITALS: BP 144/59; PULSE 91
[2017-02-07] MEDS: ACETAMINOPHEN 650MG/20.3ML CUP GTB PRN (17:49)
--- NOTE | 2017-02-07 18:50 | PN ---
Date/Time of Note Date/Time of Note DATE: 02/07/17 TIME: 18:48 Assessment/Plan VTE Prophylaxis VTE Prophylaxis Intervention: SCD's Lines/Catheters IV C[facility]ter Type (from [facility]): [facility] Urinary Cath still in place: No Assessment/Plan Chief Complaint/Hosp Course Patient pending's video swallow swallow evaluation, tolerated G-tube feeding well, denies any shortness of breath today. Assessment/Plan 1. Pulmonary debility secondary to acute respiratory failure. 2. Tracheostomy, currently capped. 3. Dysphagia with PEG. pending swallow evaluation. 4. History of thyroid cancer, status post radiation. 5. Continue patient on current dose of Synthroid. 6. History of acute hypoxemic respiratory failure with tracheostomy, history of aspiration pneumonia, pneumothorax, and secretion retention. Continue oxygen supplementation and trach care and continue breathing treatment. 7. History of breast cancer, status post bilateral mastectomy. 8. Hypertension. Continue hydralazine as needed. 9. Depression. Continue Zoloft. 10. Anemia, continue iron supplements monitor hemoglobin and hematocrit. Further recommendations based on clinical course. Plan of care discussed with Dr. Root. Problems: Exam/Review of Systems Vital Signs Vitals Vital Signs Date Time Temp Pulse Resp B/P Pulse Ox O2 Delivery O2 Flow Rate FiO2 02/07/17 17:21 2.0 02/07/17 17:21 94 20 Nasal Cannula 02/07/17 07:00 98.7 163/72 100 02/07/17 02:35 21 Intake and Output 02/06/17 02/06/17 02/07/17 15:00 23:00 07:00 Intake Total 1250 ml Balance 1250 ml Exam Constitutional: oriented Head: normocephalic Neck: other (Tracheostomy) Respiratory: normal air movement Cardiovascular: nl pulses Gastrointestinal: non-tender, other (G-tube), soft Extremities: normal pulses Results Result Diagram: 02/05/17 0653 02/05/17 0653 Medications Medications Current Medications Sertraline HCl (Zoloft) 25 mg DAILY PEG Last administered on 02/07/17t 10:08; Admin Dose 25 MG; Start 02/05/17 at 09:00 Zolpidem Tartrate (Ambien) 5 mg HS PRN PO INSOMNIA; Start 02/04/17 at 21:00 Lansoprazole (Prevacid) 30 mg DAILY@06 GTB Last administered on 02/07/17 05:24 ; Admin Dose 30 MG; Start 02/05/17 at 06:00 Levothyroxine Sodium (Synthroid) 50 mcg DAILY@06 GTB Last administered on 05:24; Admin Dose 50 MCG; Start 02/05/17 at 06:00 Lorazepam (Ativan) 0.5 mg Q6H PRN PO AGITATION/ANXIETY; Start 02/04/17 at 17:00 Miconazole Nitrate (CRITIC AID Oint) 1 applic BID PRN TOP ITCHING/RASH; Start 02/04/17 at 18:00 Nystatin (Nystatin Powder) 1 applic BID TOP Last administered on 02/07/17 10: 11; Admin Dose 1 APPLIC; Start 02/04/17 at 21:00 Quetiapine Fumarate (Seroquel) 50 mg QHS GTB Last administered on 02/06/17 21: 22; Admin Dose 50 MG; Start 02/04/17 at 21:00 Senna (Senokot) 1 tab BID GTB Last administered on 02/07/17 10:12; Admin Dose 1 TAB; Start 02/04/17 at 21:00 Acetaminophen (Tylenol Supp) 650 mg Q6H PRN [place] PAIN AND OR ELEVATED TEMP; Start 02/04/17 at 17:00 Chlorhexidine Gluconate (Peridex) 15 ml BID MT Last administered on 02/07/17 10:08; Admin Dose 15 ML; Start 02/04/17 at 21:00 Docusate Sodium (Colace Liquid Cup) 100 mg BID GTB Last administered on 10:10; Admin Dose 100 MG; Start 02/04/17 at 21:00 Ferrous Sulfate (Feosol Liquid Cup) 300 mg DAILY GTB Last administered on 10:10; Admin Dose 300 MG; Start 02/05/17 at 09:00 Heparin Sodium (Porcine) (Heparin (5000 Units/0.5 ml)) 5,000 unit Q12 SC Last administered on 02/07/17 10:10; Admin Dose 5,000 UNIT; Start 02/04/17 at 21:00 Hydralazine HCl (Apresoline) 25 mg BID GTB Last administered on 02/07/17 10:09 ; Admin Dose 25 MG; Start 02/04/17 at 21:00 Acetaminophen (Tylenol Liquid) 650 mg Q4H PRN GTB PAIN AND OR ELEVATED TEMP Last administered on 02/07/17 17:49; Admin Dose 650 MG; Start 02/05/17 at 16:30 Lactulose (Enulose) 20 gm DAILY PRN PO CONSTIPATION Last administered on 10:02; Admin Dose 20 GM; Start 02/06/17 at 08:30 CHARY NICOLAS Feb 07, 2017 18:50
[2017-02-07 20:00] VITALS: BP 117/54; RESP 20
[2017-02-07] MEDS: QUETIAPINE 25 MG TAB GTB SCH (21:32)
[2017-02-08 02:00] VITALS: BP 125/65; RESP 20
[2017-02-08] MEDS: LEVOTHYROXINE 50 MCG TAB GTB SCH (06:29)
[2017-02-08] MEDS: LANSOPRAZOLE 30 MG CAP GTB SCH (06:29)
[2017-02-08 08:00] VITALS: BP 156/96; RESP 20
[2017-02-08] MEDS: CHLORHEXIDINE GLUCONATE 15 ML UD CUP MT SCH ×2 (09:00→21:03)
[2017-02-08] MEDS: ALBUTEROL 0.083% (NEB) 2.5 MG/3 ML AMP INH SCH ×3 (09:00→17:05)
[2017-02-08] MEDS: SERTRALINE 50 MG TAB PEG SCH (09:27)
[2017-02-08] MEDS: SENNA TAB GTB SCH ×2 (09:27→21:04)
[2017-02-08] MEDS: HEPARIN 5,000 UNIT/0.5 ML VIAL SC SCH ×2 (09:27→21:15)
[2017-02-08] MEDS: FERROUS SULFATE 60 MG/ML 5ML CUP GTB SCH (09:28)
[2017-02-08] MEDS: NYSTATIN 30 GM POWDER BTL TOP SCH ×2 (09:28→21:04)
[2017-02-08] MEDS: DOCUSATE SODIUM 10 MG/ML (10ML CUP) GTB SCH ×2 (09:28→21:00)
--- NOTE | 2017-02-08 11:32 | CONS ---
Date/Time of Note Date/Time of Note DATE: 02/08/17 TIME: 11:32 Consult Date/Type/Reason Admit Date/Time Feb 04, 2017 at 14:34 Subjective Comfortable Objective min assist Vital Signs Date Time Temp Pulse Resp B/P Pulse Ox O2 Delivery O2 Flow Rate FiO2 02/08/17 08:00 98.0 106 20 156/96 95 02/07/17 23:20 2.0 02/07/17 17:21 Nasal Cannula 02/07/17 02:35 21 Intake and Output 02/07/17 02/07/17 02/08/17 15:00 23:00 07:00 Intake Total 120 ml 1320 ml 1820 ml Output Total 400 ml Balance 120 ml 920 ml 1820 ml Results/Medications Result Diagram: 02/05/17 0653 02/05/17 0653 Medications Current Medications Sertraline HCl (Zoloft) 25 mg DAILY PEG Last administered on 02/08/17 09:27; Admin Dose 25 MG; Start 02/05/17 at 09:00 Zolpidem Tartrate (Ambien) 5 mg HS PRN PO INSOMNIA; Start 02/04/17 at 21:00 Lansoprazole (Prevacid) 30 mg DAILY@06 GTB Last administered on 02/08/17 06:29 ; Admin Dose 30 MG; Start 02/05/17 at 06:00 Levothyroxine Sodium (Synthroid) 50 mcg DAILY@06 GTB Last administered on 06:29; Admin Dose 50 MCG; Start 02/05/17 at 06:00 Lorazepam (Ativan) 0.5 mg Q6H PRN PO AGITATION/ANXIETY; Start 02/04/17 at 17:00 Miconazole Nitrate (CRITIC AID Oint) 1 applic BID PRN TOP ITCHING/RASH; Start 02/04/17 at 18:00 Nystatin (Nystatin Powder) 1 applic BID TOP Last administered on 02/08/17 09: 28; Admin Dose 1 APPLIC; Start 02/04/17 at 21:00 Quetiapine Fumarate (Seroquel) 50 mg QHS GTB Last administered on 02/07/17 21: 32; Admin Dose 50 MG; Start 02/04/17 at 21:00 Senna (Senokot) 1 tab BID GTB Last administered on 02/08/17 09:27; Admin Dose 1 TAB; Start 02/04/17 at 21:00 Acetaminophen (Tylenol Supp) 650 mg Q6H PRN [place] PAIN AND OR ELEVATED TEMP; Start 02/04/17 at 17:00 Chlorhexidine Gluconate (Peridex) 15 ml BID MT Last administered on 02/07/17 21:33; Admin Dose 15 ML; Start 02/04/17 at 21:00 Docusate Sodium (Colace Liquid Cup) 100 mg BID GTB Last administered on 09:28; Admin Dose 100 MG; Start 02/04/17 at 21:00 Ferrous Sulfate (Feosol Liquid Cup) 300 mg DAILY GTB Last administered on 09:28; Admin Dose 300 MG; Start 02/05/17 at 09:00 Heparin Sodium (Porcine) (Heparin (5000 Units/0.5 ml)) 5,000 unit Q12 SC Last administered on 02/08/17 09:27; Admin Dose 5,000 UNIT; Start 02/04/17 at 21:00 Hydralazine HCl (Apresoline) 25 mg BID GTB Last administered on 02/08/17 09:28 ; Admin Dose 25 MG; Start 02/04/17 at 21:00 Acetaminophen (Tylenol Liquid) 650 mg Q4H PRN GTB PAIN AND OR ELEVATED TEMP Last administered on 02/07/17 17:49; Admin Dose 650 MG; Start 02/05/17 at 16:30 Lactulose (Enulose) 20 gm DAILY PRN PO CONSTIPATION Last administered on 10:02; Admin Dose 20 GM; Start 02/06/17 at 08:30 Acetaminophen/ Hydrocodone Bitart ([place] (5/325)) 1 tab Q8 PRN PO SEVERE PAIN; Start 02/08/17 at 11:30 Assessment/Plan Additional Assessment/Plan Rehab- Normal-pressure hydrocephalus, encephalopathy. Continue rehab plan Hypertension. Diabetes mellitus. Hyperlipidemia. LISA ORDOÑEZ MD Feb 08, 2017 11:32
[2017-02-08] MEDS: HYDROCODONE/APAP (5/325) TAB PO PRN ×2 (11:43→21:04)
[2017-02-08 14:00] VITALS: BP 127/58; RESP 20
[2017-02-08 19:46] VITALS: BP 106/54; RESP 19
[2017-02-08] MEDS: QUETIAPINE 25 MG TAB GTB SCH (21:03)
[2017-02-09 02:00] VITALS: BP 136/56; PULSE 88; RESP 19
[2017-02-09] MEDS: LANSOPRAZOLE 30 MG CAP GTB SCH (05:57)
[2017-02-09] MEDS: LEVOTHYROXINE 50 MCG TAB GTB SCH (05:57)
[2017-02-09 07:00] VITALS: BP 118/54; RESP 18
[2017-02-09] MEDS: ALBUTEROL 0.083% (NEB) 2.5 MG/3 ML AMP INH SCH ×3 (08:13→17:00)
[2017-02-09] MEDS: SENNA TAB GTB SCH ×2 (09:50→20:45)
[2017-02-09] MEDS: DOCUSATE SODIUM 10 MG/ML (10ML CUP) GTB SCH ×2 (09:50→20:45)
[2017-02-09] MEDS: FERROUS SULFATE 60 MG/ML 5ML CUP GTB SCH (09:50)
[2017-02-09] MEDS: CHLORHEXIDINE GLUCONATE 15 ML UD CUP MT SCH ×2 (09:51→20:46)
[2017-02-09] MEDS: SERTRALINE 50 MG TAB PEG SCH (09:52)
[2017-02-09] MEDS: NYSTATIN 30 GM POWDER BTL TOP SCH ×2 (09:54→20:46)
[2017-02-09] MEDS: HEPARIN 5,000 UNIT/0.5 ML VIAL SC SCH ×2 (09:54→20:56)
[2017-02-09] MEDS ORDERED: VITAMIN A & D 5 GM OINT PACKET TOP ONE (13:43)
[2017-02-09 20:00] VITALS: BP 128/60; RESP 20
[2017-02-09] MEDS: QUETIAPINE 25 MG TAB GTB SCH (20:45)
[2017-02-10 02:00] VITALS: BP 127/59; RESP 18
[2017-02-10] MEDS: ACETAMINOPHEN 650MG/20.3ML CUP GTB PRN ×2 (06:30→21:19)
[2017-02-10] MEDS: LANSOPRAZOLE 30 MG CAP GTB SCH (06:31)
[2017-02-10] MEDS: LEVOTHYROXINE 50 MCG TAB GTB SCH (06:31)
[2017-02-10 07:30] VITALS: BP 85/47; RESP 20
[2017-02-10] MEDS: ALBUTEROL 0.083% (NEB) 2.5 MG/3 ML AMP INH SCH ×3 (09:20→17:14)
[2017-02-10] MEDS: CHLORHEXIDINE GLUCONATE 15 ML UD CUP MT SCH ×2 (09:24→21:20)
[2017-02-10] MEDS: FERROUS SULFATE 60 MG/ML 5ML CUP GTB SCH (09:24)
[2017-02-10] MEDS: DOCUSATE SODIUM 10 MG/ML (10ML CUP) GTB SCH ×2 (09:24→21:03)
[2017-02-10] MEDS: SENNA TAB GTB SCH ×2 (09:24→21:07)
[2017-02-10] MEDS: SERTRALINE 50 MG TAB PEG SCH (09:25)
[2017-02-10] MEDS: HEPARIN 5,000 UNIT/0.5 ML VIAL SC SCH ×2 (09:25→21:34)
--- NOTE | 2017-02-10 09:38 | CONS ---
Date/Time of Note Date/Time of Note DATE: 02/10/17 TIME: 09:38 Consult Date/Type/Reason Admit Date/Time Feb 04, 2017 at 14:34 Subjective Patient feeling better overall Objective Vital Signs Date Time Temp Pulse Resp B/P Pulse Ox O2 Delivery O2 Flow Rate FiO2 02/10/17 02:00 97.8 98 18 127/59 95 02/09/17 08:14 21 02/09/17 02:00 Room Air 02/07/17 23:20 2.0 Intake and Output 02/09/17 02/09/17 02/10/17 15:00 23:00 07:00 Intake Total 995 ml 1270 ml Output Total 150 ml 1100 ml Balance -150 ml -105 ml 1270 ml INTERDISCIPLINARY TEAM CONFERENCE BOWEL- Cont BLADDER-Cont SKIN- intact OT- DRESSING-min/mod BATHING-min/mod TOILETING-min/mod PT- BED MOBILITY-mod TRANSFERS-mod AMBULATION-mod12 feet SPEECH- COGNITION- Supervised DYPHAGIA-videofluoro to be scheduled for this week A/P- Interdisciplinary team conference held today. Please see interdisciplinary sheet. Working toward d.c. on 02/20 with post discharge follow up of physical therapy, occupational therapy and RN. Speech therapy reports that patient is doing well with cognition. Will decrease speech therapy activities to focus on functional mobility and self care. Speech will continue with 30 minutes per day to work on dysphagia and higher level cognitive tasks. Videofluoro this week, as speech therapy's schedule permits. Results/Medications Medications Current Medications Sertraline HCl (Zoloft) 25 mg DAILY PEG Last administered on 02/10/17 09:25; Admin Dose 25 MG; Start 02/05/17 at 09:00 Zolpidem Tartrate (Ambien) 5 mg HS PRN PO INSOMNIA; Start 02/04/17 at 21:00 Lansoprazole (Prevacid) 30 mg DAILY@06 GTB Last administered on 02/10/17 06:31 ; Admin Dose 30 MG; Start 02/05/17 at 06:00 Levothyroxine Sodium (Synthroid) 50 mcg DAILY@06 GTB Last administered on 06:31; Admin Dose 50 MCG; Start 02/05/17 at 06:00 Lorazepam (Ativan) 0.5 mg Q6H PRN PO AGITATION/ANXIETY; Start 02/04/17 at 17:00 Miconazole Nitrate (CRITIC AID Oint) 1 applic BID PRN TOP ITCHING/RASH; Start 02/04/17 at 18:00 Nystatin (Nystatin Powder) 1 applic BID TOP Last administered on 02/09/17 20: 46; Admin Dose 1 APPLIC; Start 02/04/17 at 21:00 Quetiapine Fumarate (Seroquel) 50 mg QHS GTB Last administered on 02/09/17 20: 45; Admin Dose 50 MG; Start 02/04/17 at 21:00 Senna (Senokot) 1 tab BID GTB Last administered on 02/10/17 09:24; Admin Dose 1 TAB; Start 02/04/17 at 21:00 Acetaminophen (Tylenol Supp) 650 mg Q6H PRN [place] PAIN AND OR ELEVATED TEMP; Start 02/04/17 at 17:00 Chlorhexidine Gluconate (Peridex) 15 ml BID MT Last administered on 02/10/17 09:24; Admin Dose 15 ML; Start 02/04/17 at 21:00 Docusate Sodium (Colace Liquid Cup) 100 mg BID GTB Last administered on 09:24; Admin Dose 100 MG; Start 02/04/17 at 21:00 Ferrous Sulfate (Feosol Liquid Cup) 300 mg DAILY GTB Last administered on 09:24; Admin Dose 300 MG; Start 02/05/17 at 09:00 Heparin Sodium (Porcine) (Heparin (5000 Units/0.5 ml)) 5,000 unit Q12 SC Last administered on 02/10/17 09:25; Admin Dose 5,000 UNIT; Start 02/04/17 at 21:00 Hydralazine HCl (Apresoline) 25 mg BID GTB Last administered on 02/09/17 20:46 ; Admin Dose 25 MG; Start 02/04/17 at 21:00 Acetaminophen (Tylenol Liquid) 650 mg Q4H PRN GTB PAIN AND OR ELEVATED TEMP Last administered on 02/10/17 06:30; Admin Dose 650 MG; Start 02/05/17 at 16:30 Lactulose (Enulose) 20 gm DAILY PRN PO CONSTIPATION Last administered on 10:02; Admin Dose 20 GM; Start 02/06/17 at 08:30 Acetaminophen/ Hydrocodone Bitart ([place] (5/325)) 1 tab Q8 PRN PO SEVERE PAIN Last administered on 02/08/17t 21:04; Admin Dose 1 TAB; Start 02/08/17 at 11:30 LISA ORDOÑEZ MD Feb 10, 2017 09:38
[2017-02-10] MEDS: NYSTATIN 30 GM POWDER BTL TOP SCH ×2 (10:15→21:03)
--- NOTE | 2017-02-10 18:37 | PN ---
Date/Time of Note Date/Time of Note DATE: 02/10/17 TIME: 18:35 Assessment/Plan VTE Prophylaxis VTE Prophylaxis Intervention: SCD's Lines/Catheters IV Catheter Type (from [facility]): [facility] Urinary Cath still in place: No Assessment/Plan Chief Complaint/Hosp Course Patient tolerates G-tube feeding well, participates in PT OT and speech therapy activities, video swallow eval later this week. Assessment/Plan 1. Pulmonary debility secondary to acute respiratory failure. 2. Tracheostomy, currently capped. 3. Dysphagia with PEG. pending swallow evaluation. 4. History of thyroid cancer, status post radiation. 5. Continue patient on current dose of Synthroid. 6. History of acute hypoxemic respiratory failure with tracheostomy, history of aspiration pneumonia, pneumothorax, and secretion retention. Continue oxygen supplementation and trach care and continue breathing treatment. 7. History of breast cancer, status post bilateral mastectomy. 8. Hypertension. Continue hydralazine as needed. 9. Depression. Continue Zoloft. 10. Anemia, continue iron supplements monitor hemoglobin and hematocrit. Further recommendations based on clinical course. Plan of care discussed with Dr. Root. Problems: Exam/Review of Systems Vital Signs Vitals Vital Signs Date Time Temp Pulse Resp B/P Pulse Ox O2 Delivery O2 Flow Rate FiO2 02/10/17 17:15 86 20 96 2.0 28 02/10/17 07:30 98.5 85/47 02/09/17 02:00 Room Air Intake and Output 02/09/17 02/09/17 02/10/17 15:00 23:00 07:00 Intake Total 995 ml 1270 ml Output Total 150 ml 1100 ml Balance -150 ml -105 ml 1270 ml Exam Constitutional: oriented Head: normocephalic Neck: other (Tracheostomy) Respiratory: normal air movement Cardiovascular: nl pulses Gastrointestinal: non-tender, other (G-tube), soft Extremities: normal pulses Medications Medications Current Medications Sertraline HCl (Zoloft) 25 mg DAILY PEG Last administered on 02/10/17 09:25; Admin Dose 25 MG; Start 02/05/17 at 09:00 Zolpidem Tartrate (Ambien) 5 mg HS PRN PO INSOMNIA; Start 02/04/17 at 21:00 Lansoprazole (Prevacid) 30 mg DAILY@06 GTB Last administered on 02/10/17 06:31 ; Admin Dose 30 MG; Start 02/05/17 at 06:00 Levothyroxine Sodium (Synthroid) 50 mcg DAILY@06 GTB Last administered on 06:31; Admin Dose 50 MCG; Start 02/05/17 at 06:00 Lorazepam (Ativan) 0.5 mg Q6H PRN PO AGITATION/ANXIETY; Start 02/04/17 at 17:00 Miconazole Nitrate (CRITIC AID Oint) 1 applic BID PRN TOP ITCHING/RASH; Start 02/04/17 at 18:00 Nystatin (Nystatin Powder) 1 applic BID TOP Last administered on 02/10/17 10: 15; Admin Dose 1 APPLIC; Start 02/04/17 at 21:00 Quetiapine Fumarate (Seroquel) 50 mg QHS GTB Last administered on 02/09/17 20: 45; Admin Dose 50 MG; Start 02/04/17 at 21:00 Senna (Senokot) 1 tab BID GTB Last administered on 02/10/17 09:24; Admin Dose 1 TAB; Start 02/04/17 at 21:00 Acetaminophen (Tylenol Supp) 650 mg Q6H PRN [place] PAIN AND OR ELEVATED TEMP; Start 02/04/17 at 17:00 Chlorhexidine Gluconate (Peridex) 15 ml BID MT Last administered on 02/10/17 09:24; Admin Dose 15 ML; Start 02/04/17 at 21:00 Docusate Sodium (Colace Liquid Cup) 100 mg BID GTB Last administered on 09:24; Admin Dose 100 MG; Start 02/04/17 at 21:00 Ferrous Sulfate (Feosol Liquid Cup) 300 mg DAILY GTB Last administered on 09:24; Admin Dose 300 MG; Start 02/05/17 at 09:00 Heparin Sodium (Porcine) (Heparin (5000 Units/0.5 ml)) 5,000 unit Q12 SC Last administered on 02/10/17 09:25; Admin Dose 5,000 UNIT; Start 02/04/17 at 21:00 Hydralazine HCl (Apresoline) 25 mg BID GTB Last administered on 02/09/17 20:46 ; Admin Dose 25 MG; Start 9/19/17 at 21:00 Acetaminophen (Tylenol Liquid) 650 mg Q4H PRN GTB PAIN AND OR ELEVATED TEMP Last administered on 02/10/17 06:30; Admin Dose 650 MG; Start 02/05/17 at 16:30 Lactulose (Enulose) 20 gm DAILY PRN PO CONSTIPATION Last administered on 10:02; Admin Dose 20 GM; Start 02/06/17 at 08:30 Acetaminophen/ Hydrocodone Bitart ([place] (5/325)) 1 tab Q8 PRN PO SEVERE PAIN Last administered on 02/08/17 21:04; Admin Dose 1 TAB; Start 02/08/17 at 11:30 CHARY NICOLAS Feb 10, 2017 18:37
[2017-02-10 20:00] VITALS: BP 123/60; RESP 18
[2017-02-10] MEDS: QUETIAPINE 25 MG TAB GTB SCH (21:04)
[2017-02-11 02:00] VITALS: RESP 18
[2017-02-11] MEDS: LEVOTHYROXINE 50 MCG TAB GTB SCH (06:14)
[2017-02-11] MEDS: LANSOPRAZOLE 30 MG CAP GTB SCH (06:14)
[2017-02-11 07:00] VITALS: BP 116/58; RESP 18
[2017-02-11] MEDS: ALBUTEROL 0.083% (NEB) 2.5 MG/3 ML AMP INH SCH ×4 (08:04→21:32)
[2017-02-11 10:06] VITALS: BP 126/60; PULSE 85; RESP 18
[2017-02-11] MEDS: SENNA TAB GTB SCH ×2 (10:07→20:56)
[2017-02-11] MEDS: DOCUSATE SODIUM 10 MG/ML (10ML CUP) GTB SCH ×2 (10:08→20:56)
[2017-02-11] MEDS: SERTRALINE 50 MG TAB PEG SCH (10:08)
[2017-02-11] MEDS: NYSTATIN 30 GM POWDER BTL TOP SCH ×2 (10:08→21:05)
[2017-02-11] MEDS: CHLORHEXIDINE GLUCONATE 15 ML UD CUP MT SCH ×2 (10:08→21:57)
[2017-02-11] MEDS: FERROUS SULFATE 60 MG/ML 5ML CUP GTB SCH (10:08)
[2017-02-11] MEDS: HEPARIN 5,000 UNIT/0.5 ML VIAL SC SCH ×2 (10:17→21:05)
--- NOTE | 2017-02-11 11:19 | CONS ---
Date/Time of Note Date/Time of Note DATE: 02/11/17 TIME: 11:18 Consult Date/Type/Reason Admit Date/Time Feb 04, 2017 at 14:34 Subjective She had shower today, in good spirits Objective pulm-cta mod assist transfer and ambulation Vital Signs Date Time Temp Pulse Resp B/P Pulse Ox O2 Delivery O2 Flow Rate FiO2 02/11/17 10:06 98.2 85 18 126/60 97 Room Air 02/10/17 20:15 21 02/10/17 17:15 2.0 Intake and Output 02/10/17 02/10/17 02/11/17 15:00 23:00 07:00 Intake Total 1270 ml 1270 ml Balance 1270 ml 1270 ml Results/Medications Medications Current Medications Sertraline HCl (Zoloft) 25 mg DAILY PEG Last administered on 02/11/17 10:08; Admin Dose 25 MG; Start 02/05/17 at 09:00 Zolpidem Tartrate (Ambien) 5 mg HS PRN PO INSOMNIA; Start 02/04/17 at 21:00 Lansoprazole (Prevacid) 30 mg DAILY@06 GTB Last administered on 02/11/17 06:14 ; Admin Dose 30 MG; Start 02/05/17 at 06:00 Levothyroxine Sodium (Synthroid) 50 mcg DAILY@06 GTB Last administered on 06:14; Admin Dose 50 MCG; Start 02/05/17 at 06:00 Lorazepam (Ativan) 0.5 mg Q6H PRN PO AGITATION/ANXIETY; Start 02/04/17 at 17:00 Miconazole Nitrate (CRITIC AID Oint) 1 applic BID PRN TOP ITCHING/RASH; Start 02/04/17 at 18:00 Nystatin (Nystatin Powder) 1 applic BID TOP Last administered on 02/11/17 10: 08; Admin Dose 1 APPLIC; Start 02/04/17 at 21:00 Quetiapine Fumarate (Seroquel) 50 mg QHS GTB Last administered on 02/10/17 21: 04; Admin Dose 50 MG; Start 02/04/17 at 21:00 Senna (Senokot) 1 tab BID GTB Last administered on 02/11/17 10:07; Admin Dose 1 TAB; Start 02/04/17 at 21:00 Acetaminophen (Tylenol Supp) 650 mg Q6H PRN [place] PAIN AND OR ELEVATED TEMP; Start 02/04/17 at 17:00 Chlorhexidine Gluconate (Peridex) 15 ml BID MT Last administered on 02/11/17 10:08; Admin Dose 15 ML; Start 02/04/17 at 21:00 Docusate Sodium (Colace Liquid Cup) 100 mg BID GTB Last administered on 10:08; Admin Dose 100 MG; Start 02/04/17 at 21:00 Ferrous Sulfate (Feosol Liquid Cup) 300 mg DAILY GTB Last administered on 10:08; Admin Dose 300 MG; Start 02/05/17 at 09:00 Heparin Sodium (Porcine) (Heparin (5000 Units/0.5 ml)) 5,000 unit Q12 SC Last administered on 02/11/17 10:17; Admin Dose 5,000 UNIT; Start 02/04/17 at 21:00 Hydralazine HCl (Apresoline) 25 mg BID GTB Last administered on 02/11/17 10:07 ; Admin Dose 25 MG; Start 02/04/17 at 21:00 Acetaminophen (Tylenol Liquid) 650 mg Q4H PRN GTB PAIN AND OR ELEVATED TEMP Last administered on 02/10/17 21:19; Admin Dose 650 MG; Start 02/05/17 at 16:30 Lactulose (Enulose) 20 gm DAILY PRN PO CONSTIPATION Last administered on 10:02; Admin Dose 20 GM; Start 02/06/17 at 08:30 Acetaminophen/ Hydrocodone Bitart ([place] (5/325)) 1 tab Q8 PRN PO SEVERE PAIN Last administered on 02/08/17 21:04; Admin Dose 1 TAB; Start 02/08/17 at 11:30 Assessment/Plan Additional Assessment/Plan Rehab- Normal-pressure hydrocephalus, encephalopathy. Continue rehab activities Dysphagia- awaiting videofluoro Hypertension. Diabetes mellitus. Hyperlipidemia. LISA ORDOÑEZ MD Feb 11, 2017 11:19
[2017-02-11] MEDS: ACETAMINOPHEN 650MG/20.3ML CUP GTB PRN ×2 (12:11→21:54)
--- NOTE | 2017-02-11 17:08 | PN ---
Date/Time of Note Date/Time of Note DATE: 02/11/17 TIME: 17:04 Assessment/Plan VTE Prophylaxis VTE Prophylaxis Intervention: SCD's Lines/Catheters IV [facility] Saline Lock Urinary Cath still in place: No Assessment/Plan Chief Complaint/Hosp Course No acute events overnight, patient looks comfortable, pending video swallow eval possibly tomorrow Assessment/Plan - Pulmonary debility secondary to acute respiratory failure. - Tracheostomy, currently capped. Continue current tracheostomy care. - Dysphagia with PEG. pending swallow evaluation. - History of thyroid cancer, status post radiation. Continue patient on current dose of Synthroid. - Hypertension. Continue hydralazine as needed. - Depression. Continue Zoloft. - Anemia, continue iron supplements monitor hemoglobin and hematocrit. - History of acute hypoxemic respiratory failure with tracheostomy, history of aspiration pneumonia, pneumothorax, and secretion retention. Continue oxygen supplementation and trach care and continue breathing treatment. - History of breast cancer, status post bilateral mastectomy. Further recommendations based on clinical course. Plan of care discussed with Dr. Root. Problems: Exam/Review of Systems Vital Signs Vitals Vital Signs Date Time Temp Pulse Resp B/P Pulse Ox O2 Delivery O2 Flow Rate FiO2 02/11/17 16:57 82 18 96 21 02/11/17 10:06 98.2 126/60 Room Air 02/10/17 17:15 2.0 Intake and Output 02/10/17 02/10/17 02/11/17 15:00 23:00 07:00 Intake Total 1270 ml 1270 ml Balance 1270 ml 1270 ml Exam Constitutional: oriented Head: normocephalic Neck: other (Tracheostomy) Respiratory: normal air movement Cardiovascular: nl pulses Gastrointestinal: non-tender, other (G-tube), soft Extremities: normal pulses Medications Medications Current Medications Sertraline HCl (Zoloft) 25 mg DAILY PEG Last administered on 02/11/17 10:08; Admin Dose 25 MG; Start 02/05/17 at 09:00 Zolpidem Tartrate (Ambien) 5 mg HS PRN PO INSOMNIA; Start 02/04/17 at 21:00 Lansoprazole (Prevacid) 30 mg DAILY@06 GTB Last administered on 02/11/17 06:14 ; Admin Dose 30 MG; Start 02/05/17 at 06:00 Levothyroxine Sodium (Synthroid) 50 mcg DAILY@06 GTB Last administered on 06:14; Admin Dose 50 MCG; Start 02/05/17 at 06:00 Lorazepam (Ativan) 0.5 mg Q6H PRN PO AGITATION/ANXIETY; Start 02/04/17 at 17:00 Miconazole Nitrate (CRITIC AID Oint) 1 applic BID PRN TOP ITCHING/RASH; Start 02/04/17 at 18:00 Nystatin (Nystatin Powder) 1 applic BID TOP Last administered on 02/11/17 10: 08; Admin Dose 1 APPLIC; Start 02/04/17 at 21:00 Quetiapine Fumarate (Seroquel) 50 mg QHS GTB Last administered on 02/10/17 21: 04; Admin Dose 50 MG; Start 02/04/17 at 21:00 Senna (Senokot) 1 tab BID GTB Last administered on 02/11/17 10:07; Admin Dose 1 TAB; Start 02/04/17 at 21:00 Acetaminophen (Tylenol Supp) 650 mg Q6H PRN [place] PAIN AND OR ELEVATED TEMP; Start 02/04/17 at 17:00 Chlorhexidine Gluconate (Peridex) 15 ml BID MT Last administered on 02/11/17 10:08; Admin Dose 15 ML; Start 02/04/17 at 21:00 Docusate Sodium (Colace Liquid Cup) 100 mg BID GTB Last administered on 10:08; Admin Dose 100 MG; Start 02/04/17 at 21:00 Ferrous Sulfate (Feosol Liquid Cup) 300 mg DAILY GTB Last administered on 10:08; Admin Dose 300 MG; Start 02/05/17 at 09:00 Heparin Sodium (Porcine) (Heparin (5000 Units/0.5 ml)) 5,000 unit Q12 SC Last administered on 02/11/17 10:17; Admin Dose 5,000 UNIT; Start 02/04/17 at 21:00 Hydralazine HCl (Apresoline) 25 mg BID GTB Last administered on 02/11/17 10:07 ; Admin Dose 25 MG; Start 02/04/17 at 21:00 Acetaminophen (Tylenol Liquid) 650 mg Q4H PRN GTB PAIN AND OR ELEVATED TEMP Last administered on 02/11/17 12:11; Admin Dose 650 MG; Start 02/05/17 at 16:30 Lactulose (Enulose) 20 gm DAILY PRN PO CONSTIPATION Last administered on 10:02; Admin Dose 20 GM; Start 02/06/17 at 08:30 Acetaminophen/ Hydrocodone Bitart ([place] (5/325)) 1 tab Q8 PRN PO SEVERE PAIN Last administered on 02/08/17 21:04; Admin Dose 1 TAB; Start 02/08/17 at 11:30 CHARY NICOLAS Feb 11, 2017 17:08
[2017-02-11 20:00] VITALS: BP 128/61; RESP 18
[2017-02-11] MEDS: QUETIAPINE 25 MG TAB GTB SCH (20:55)
[2017-02-12] MEDS: LANSOPRAZOLE 30 MG CAP GTB SCH (06:40)
[2017-02-12] MEDS: LEVOTHYROXINE 50 MCG TAB GTB SCH (06:40)
[2017-02-12 08:18] VITALS: BP 131/63; RESP 20
[2017-02-12] MEDS: ALBUTEROL 0.083% (NEB) 2.5 MG/3 ML AMP INH SCH ×3 (08:26→17:23)
[2017-02-12] MEDS: FERROUS SULFATE 60 MG/ML 5ML CUP GTB SCH (09:27)
[2017-02-12] MEDS: DOCUSATE SODIUM 10 MG/ML (10ML CUP) GTB SCH ×2 (09:27→20:44)
[2017-02-12] MEDS: CHLORHEXIDINE GLUCONATE 15 ML UD CUP MT SCH ×2 (09:27→21:51)
[2017-02-12] MEDS: HEPARIN 5,000 UNIT/0.5 ML VIAL SC SCH ×2 (09:28→20:56)
[2017-02-12] MEDS: SENNA TAB GTB SCH ×2 (09:29→20:44)
[2017-02-12] MEDS: SERTRALINE 50 MG TAB PEG SCH (09:29)
[2017-02-12] MEDS: NYSTATIN 30 GM POWDER BTL TOP SCH ×2 (09:30→20:40)
--- NOTE | 2017-02-12 12:23 | CONS ---
Date/Time of Note Date/Time of Note DATE: 02/12/17 TIME: 12:22 Consult Date/Type/Reason Admit Date/Time Feb 04, 2017 at 14:34 Subjective Up for therapies this morning Objective min assist 45 feet Vital Signs Date Time Temp Pulse Resp B/P Pulse Ox O2 Delivery O2 Flow Rate FiO2 02/12/17 08:27 88 18 97 21 02/12/17 08:18 98.2 131/63 02/11/17 10:06 Room Air 02/10/17 17:15 2.0 Intake and Output 02/11/17 02/11/17 02/12/17 15:00 23:00 07:00 Intake Total 240 ml 1120 ml 1150 ml Balance 240 ml 1120 ml 1150 ml Results/Medications Medications Current Medications Sertraline HCl (Zoloft) 25 mg DAILY PEG Last administered on 02/12/17 09:29; Admin Dose 25 MG; Start 02/05/17 at 09:00 Zolpidem Tartrate (Ambien) 5 mg HS PRN PO INSOMNIA; Start 02/04/17 at 21:00 Lansoprazole (Prevacid) 30 mg DAILY@06 GTB Last administered on 02/12/17 06:40 ; Admin Dose 30 MG; Start 02/05/17 at 06:00 Levothyroxine Sodium (Synthroid) 50 mcg DAILY@06 GTB Last administered on 06:40; Admin Dose 50 MCG; Start 02/05/17 at 06:00 Lorazepam (Ativan) 0.5 mg Q6H PRN PO AGITATION/ANXIETY; Start 02/04/17 at 17:00 Miconazole Nitrate (CRITIC AID Oint) 1 applic BID PRN TOP ITCHING/RASH; Start 02/04/17 at 18:00 Nystatin (Nystatin Powder) 1 applic BID TOP Last administered on 02/12/17 09: 30; Admin Dose 1 APPLIC; Start 02/04/17 at 21:00 Quetiapine Fumarate (Seroquel) 50 mg QHS GTB Last administered on 02/11/17 20: 55; Admin Dose 50 MG; Start 02/04/17 at 21:00 Senna (Senokot) 1 tab BID GTB Last administered on 02/12/17 09:29; Admin Dose 1 TAB; Start 02/04/17 at 21:00 Acetaminophen (Tylenol Supp) 650 mg Q6H PRN [place] PAIN AND OR ELEVATED TEMP; Start 02/04/17 at 17:00 Chlorhexidine Gluconate (Peridex) 15 ml BID MT Last administered on 02/12/17 09:27; Admin Dose 15 ML; Start 02/04/17 at 21:00 Docusate Sodium (Colace Liquid Cup) 100 mg BID GTB Last administered on 09:27; Admin Dose 100 MG; Start 02/04/17 at 21:00 Ferrous Sulfate (Feosol Liquid Cup) 300 mg DAILY GTB Last administered on 09:27; Admin Dose 300 MG; Start 02/05/17 at 09:00 Heparin Sodium (Porcine) (Heparin (5000 Units/0.5 ml)) 5,000 unit Q12 SC Last administered on 02/12/17 09:28; Admin Dose 5,000 UNIT; Start 02/04/17 at 21:00 Hydralazine HCl (Apresoline) 25 mg BID GTB Last administered on 02/12/17 09:32 ; Admin Dose 25 MG; Start 02/04/17 at 21:00 Acetaminophen (Tylenol Liquid) 650 mg Q4H PRN GTB PAIN AND OR ELEVATED TEMP Last administered on 02/11/17 21:54; Admin Dose 650 MG; Start 02/05/17 at 16:30 Lactulose (Enulose) 20 gm DAILY PRN PO CONSTIPATION Last administered on 10:02; Admin Dose 20 GM; Start 02/06/17 at 08:30 Acetaminophen/ Hydrocodone Bitart ([place] (5/325)) 1 tab Q8 PRN PO SEVERE PAIN Last administered on 02/08/17 21:04; Admin Dose 1 TAB; Start 02/08/17 at 11:30 Assessment/Plan Additional Assessment/Plan rehab-Pulmonary debility secondary to acute respiratory failure. Continue rehab program, overall excellent progress Pulm- Tracheostomy care Dysphagia- speech therapy. Anticiapte videofluor today Thyroid CA, status post XRT. Hypertension. History of breast CA. 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 LISA ORDOÑEZ MD Feb 12, 2017 12:23
[2017-02-12] MEDS ORDERED: BARIUM SULFATE 135 ML (E-Z HD) PO ONE (13:14)
--- NOTE | 2017-02-12 15:22 | RADRPT ---
PROCEDURE: Video-fluoroscopy swallowing study. CLINICAL INDICATION: Dysphagia. TECHNIQUE: Fluoroscopic guided video swallowing study was done in conjunction with the speech ther apist. The study was confined to the oral, pharyngeal, and cervical phases of the swallowing mechani sm. 1.2 minutes of fluoroscopy time was used. 9 series of images were obtained. COMPARISON: No prior study is available for comparison. FINDINGS: There is penetration and aspiration during swallowing. IMPRESSION: 1. Penetration and aspiration during swallowing. 2. Please refer to the speech therapist's recommendations for future feedings. RPTAT: QQ .Steven Khalil MD, MD Date Time Electronically viewed and signed by .Steven Khalil MD, on 02/12/2017 15:22 .R/
--- NOTE | 2017-02-12 18:19 | PN ---
Date/Time of Note Date/Time of Note DATE: 02/12/17 TIME: 18:18 Assessment/Plan VTE Prophylaxis VTE Prophylaxis Intervention: SCD's Lines/Catheters IV [facility] Saline Lock Urinary Cath still in place: No Assessment/Plan Chief Complaint/Hosp Course Unfortunately patient did not pass a video swallow evaluation, continue G-tube feeding. Assessment/Plan - Pulmonary debility secondary to acute respiratory failure. - Tracheostomy, currently capped. Continue current tracheostomy care. - Dysphagia with PEG. pending swallow evaluation. - History of thyroid cancer, status post radiation. Continue patient on current dose of Synthroid. - Hypertension. Continue hydralazine as needed. - Depression. Continue Zoloft. - Anemia, continue iron supplements monitor hemoglobin and hematocrit. - History of acute hypoxemic respiratory failure with tracheostomy, history of aspiration pneumonia, pneumothorax, and secretion retention. Continue oxygen supplementation and trach care and continue breathing treatment. - History of breast cancer, status post bilateral mastectomy. Further recommendations based on clinical course. Plan of care discussed with Dr. Root. Problems: Exam/Review of Systems Vital Signs Vitals Vital Signs Date Time Temp Pulse Resp B/P Pulse Ox O2 Delivery O2 Flow Rate FiO2 02/12/17 17:24 83 20 96 21 02/12/17 08:18 98.2 131/63 02/11/17 10:06 Room Air 02/10/17 17:15 2.0 Intake and Output 02/11/17 02/11/17 02/12/17 15:00 23:00 07:00 Intake Total 240 ml 1120 ml 1150 ml Balance 240 ml 1120 ml 1150 ml Exam Constitutional: oriented Head: normocephalic Neck: other (Tracheostomy) Respiratory: normal air movement Cardiovascular: nl pulses Gastrointestinal: non-tender, other (G-tube), soft Extremities: normal pulses Medications Medications Current Medications Sertraline HCl (Zoloft) 25 mg DAILY PEG Last administered on 02/12/17 09:29; Admin Dose 25 MG; Start 02/05/17 at 09:00 Zolpidem Tartrate (Ambien) 5 mg HS PRN PO INSOMNIA; Start 02/04/17 at 21:00 Lansoprazole (Prevacid) 30 mg DAILY@06 GTB Last administered on 02/12/17 06:40 ; Admin Dose 30 MG; Start 02/05/17 at 06:00 Levothyroxine Sodium (Synthroid) 50 mcg DAILY@06 GTB Last administered on 06:40; Admin Dose 50 MCG; Start 02/05/17 at 06:00 Lorazepam (Ativan) 0.5 mg Q6H PRN PO AGITATION/ANXIETY; Start 02/04/17 at 17:00 Miconazole Nitrate (CRITIC AID Oint) 1 applic BID PRN TOP ITCHING/RASH; Start 02/04/17 at 18:00 Nystatin (Nystatin Powder) 1 applic BID TOP Last administered on 02/12/17 09: 30; Admin Dose 1 APPLIC; Start 02/04/17 at 21:00 Quetiapine Fumarate (Seroquel) 50 mg QHS GTB Last administered on 02/11/17 20: 55; Admin Dose 50 MG; Start 02/04/17 at 21:00 Senna (Senokot) 1 tab BID GTB Last administered on 02/12/17 09:29; Admin Dose 1 TAB; Start 02/04/17 at 21:00 Acetaminophen (Tylenol Supp) 650 mg Q6H PRN [place] PAIN AND OR ELEVATED TEMP; Start 02/04/17 at 17:00 Chlorhexidine Gluconate (Peridex) 15 ml BID MT Last administered on 02/12/17 09:27; Admin Dose 15 ML; Start 02/04/17 at 21:00 Docusate Sodium (Colace Liquid Cup) 100 mg BID GTB Last administered on 09:27; Admin Dose 100 MG; Start 02/04/17 at 21:00 Ferrous Sulfate (Feosol Liquid Cup) 300 mg DAILY GTB Last administered on 09:27; Admin Dose 300 MG; Start 02/05/17 at 09:00 Heparin Sodium (Porcine) (Heparin (5000 Units/0.5 ml)) 5,000 unit Q12 SC Last administered on 02/12/17 09:28; Admin Dose 5,000 UNIT; Start 02/04/17 at 21:00 Hydralazine HCl (Apresoline) 25 mg BID GTB Last administered on 02/12/17 09:32 ; Admin Dose 25 MG; Start 02/04/17 at 21:00 Acetaminophen (Tylenol Liquid) 650 mg Q4H PRN GTB PAIN AND OR ELEVATED TEMP Last administered on 02/11/17 21:54; Admin Dose 650 MG; Start 02/05/17 at 16:30 Lactulose (Enulose) 20 gm DAILY PRN PO CONSTIPATION Last administered on 10:02; Admin Dose 20 GM; Start 02/06/17 at 08:30 Acetaminophen/ Hydrocodone Bitart ([place] (5/325)) 1 tab Q8 PRN PO SEVERE PAIN Last administered on 02/08/17 21:04; Admin Dose 1 TAB; Start 02/08/17 at 11:30 CHARY NICOLAS Feb 12, 2017 18:19
--- NOTE | 2017-02-12 20:29 | PN ---
DATE: 02/12/2017 PSYCHOLOGY - INDIVIDUAL SESSION - [id number]: This is a follow up on a patient who was seen last week. The patient was seen in bed. The patient reports that she has been making progress and feels better. The patient does still have her trach in and is wanting to know when and if it will be able to be removed. The patient was set up for a swallowing study this afternoon and is looking forward to possibly being able to do well enough to have her trach removed. The patient's mood is improving, though, as she gets better physically. I worked with the patient to continue to encourage her to work on both her physical and emotional issues. Dictated By: Ernesto Neff, PHD /heber/shabbir /Document#: [id number]
[2017-02-12] MEDS: QUETIAPINE 25 MG TAB GTB SCH (20:40)
[2017-02-12 22:49] VITALS: BP 128/58; RESP 20
[2017-02-13 02:00] VITALS: BP 125/62; RESP 20
[2017-02-13] MEDS: ACETAMINOPHEN 650MG/20.3ML CUP GTB PRN ×2 (03:20→13:45)
[2017-02-13] MEDS: LEVOTHYROXINE 50 MCG TAB GTB SCH (05:29)
[2017-02-13] MEDS: LANSOPRAZOLE 30 MG CAP GTB SCH (05:29)
[2017-02-13] MEDS: HYDROCODONE/APAP (5/325) TAB PO PRN (05:30)
[2017-02-13 07:30] VITALS: BP 121/54; RESP 20
[2017-02-13] MEDS: ALBUTEROL 0.083% (NEB) 2.5 MG/3 ML AMP INH SCH ×3 (08:24→16:13)
[2017-02-13] MEDS: NYSTATIN 30 GM POWDER BTL TOP SCH ×2 (09:49→21:00)
[2017-02-13] MEDS: HEPARIN 5,000 UNIT/0.5 ML VIAL SC SCH ×2 (09:49→21:12)
[2017-02-13] MEDS: DOCUSATE SODIUM 10 MG/ML (10ML CUP) GTB SCH ×2 (09:50→20:59)
[2017-02-13] MEDS: FERROUS SULFATE 60 MG/ML 5ML CUP GTB SCH (09:51)
[2017-02-13] MEDS: CHLORHEXIDINE GLUCONATE 15 ML UD CUP MT SCH (09:51)
[2017-02-13] MEDS: SERTRALINE 50 MG TAB PEG SCH (09:51)
[2017-02-13] MEDS: SENNA TAB GTB SCH ×2 (09:51→20:59)
--- NOTE | 2017-02-13 11:46 | CONS ---
Date/Time of Note Date/Time of Note DATE: 02/13/17 TIME: 11:46 Consult Date/Type/Reason Admit Date/Time Feb 04, 2017 at 14:34 Objective Vital Signs Date Time Temp Pulse Resp B/P Pulse Ox O2 Delivery O2 Flow Rate FiO2 02/13/17 08:28 2.0 02/13/17 08:28 89 18 98 Nasal Cannula 02/13/17 07:30 97.7 121/54 02/12/17 17:24 21 Intake and Output 02/12/17 02/12/17 02/13/17 15:00 23:00 07:00 Intake Total 1100 ml 870 ml 1850 ml Balance 1100 ml 870 ml 1850 ml Results/Medications Medications Current Medications Sertraline HCl (Zoloft) 25 mg DAILY PEG Last administered on 02/13/17 09:51; Admin Dose 25 MG; Start 02/05/17 at 09:00 Zolpidem Tartrate (Ambien) 5 mg HS PRN PO INSOMNIA Last administered on 21:51; Admin Dose 5 MG; Start 02/04/17 at 21:00 Lansoprazole (Prevacid) 30 mg DAILY@06 GTB Last administered on 02/13/17 05:29 ; Admin Dose 30 MG; Start 02/05/17 at 06:00 Levothyroxine Sodium (Synthroid) 50 mcg DAILY@06 GTB Last administered on 05:29; Admin Dose 50 MCG; Start 02/05/17 at 06:00 Lorazepam (Ativan) 0.5 mg Q6H PRN PO AGITATION/ANXIETY; Start 02/04/17 at 17:00 Miconazole Nitrate (CRITIC AID Oint) 1 applic BID PRN TOP ITCHING/RASH; Start 02/04/17 at 18:00 Nystatin (Nystatin Powder) 1 applic BID TOP Last administered on 02/13/17 09: 49; Admin Dose 1 APPLIC; Start 02/04/17 at 21:00 Quetiapine Fumarate (Seroquel) 50 mg QHS GTB Last administered on 02/12/17 20: 40; Admin Dose 50 MG; Start 02/04/17 at 21:00 Senna (Senokot) 1 tab BID GTB Last administered on 02/13/17 09:51; Admin Dose 1 TAB; Start 02/04/17 at 21:00 Acetaminophen (Tylenol Supp) 650 mg Q6H PRN [place] PAIN AND OR ELEVATED TEMP; Start 02/04/17 at 17:00 Chlorhexidine Gluconate (Peridex) 15 ml BID MT Last administered on 02/13/17 09:51; Admin Dose 15 ML; Start 02/04/17 at 21:00 Docusate Sodium (Colace Liquid Cup) 100 mg BID GTB Last administered on 09:50; Admin Dose 100 MG; Start 02/04/17 at 21:00 Ferrous Sulfate (Feosol Liquid Cup) 300 mg DAILY GTB Last administered on 09:51; Admin Dose 300 MG; Start 02/05/17 at 09:00 Heparin Sodium (Porcine) (Heparin (5000 Units/0.5 ml)) 5,000 unit Q12 SC Last administered on 02/13/17 09:49; Admin Dose 5,000 UNIT; Start 02/04/17 at 21:00 Hydralazine HCl (Apresoline) 25 mg BID GTB Last administered on 02/13/17 09:52 ; Admin Dose 25 MG; Start 02/04/17 at 21:00 Acetaminophen (Tylenol Liquid) 650 mg Q4H PRN GTB PAIN AND OR ELEVATED TEMP Last administered on 02/13/17 03:20; Admin Dose 650 MG; Start 02/05/17 at 16:30 Lactulose (Enulose) 20 gm DAILY PRN PO CONSTIPATION Last administered on 10:02; Admin Dose 20 GM; Start 02/06/17 at 08:30 Acetaminophen/ Hydrocodone Bitart ([place] (5/325)) 1 tab Q8 PRN PO SEVERE PAIN Last administered on 02/13/17 05:30; Admin Dose 1 TAB; Start 02/08/17 at 11:30 Assessment/Plan Additional Assessment/Plan rehab-Pulmonary debility secondary to acute respiratory failure. Continue rehab plan Pulm- Tracheostomy care Dysphagia- speech therapy. Aspiration risk, keep npo Thyroid CA, status post XRT. Hypertension. History of breast CA. 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 LISA ORDOÑEZ MD Feb 13, 2017 11:46
[2017-02-13 14:00] VITALS: BP 117/58; RESP 20
[2017-02-13 19:28] VITALS: BP 138/64; RESP 19
[2017-02-13] MEDS: QUETIAPINE 25 MG TAB GTB SCH (20:59)
[2017-02-14 02:00] VITALS: BP 140/63; RESP 18
[2017-02-14] MEDS: ACETAMINOPHEN 650MG/20.3ML CUP GTB PRN (03:51)
[2017-02-14] MEDS: CHLORHEXIDINE GLUCONATE 15 ML UD CUP MT SCH ×2 (03:56→08:53)
[2017-02-14 04:25] VITALS: BP 119/57; PULSE 121
[2017-02-14] MEDS: LEVOTHYROXINE 50 MCG TAB GTB SCH (05:41)
[2017-02-14] MEDS: LANSOPRAZOLE 30 MG CAP GTB SCH (05:41)
--- NOTE | 2017-02-14 07:16 | RADRPT ---
PROCEDURE: Noncontrast CT Head. CLINICAL INDICATION: Headache. TECHNIQUE: Noncontrast CT of the head was obtained. The administered radiation dose was CTDI vol = 45.01 mGy, DLP = 720.23 mGy-cm. One or more of the following dose reduction techniques were used: Au tomated exposure control, Adjustment of the mA and/or kV according to patient size, or Use of iterat chloe reconstruction technique. COMPARISON: There are no similar studies submitted for comparison. FINDINGS: The ventricles and sulci are within normal limits. There is extensive confluent periventricular and subcortical periventricular hypoattenuation suggest ing chronic microvascular ischemic changes. There is no loss of toney-white differentiation to suggest acute territorial infarction. There is no acute intracranial hemorrhage. There is no mass effect. No midline shift is identified. The orbits are within normal limits. There is a moderate left maxillary sinus air fluid level suggesting acute sinusitis. No destructive osseous lesion is identified. There are severe degenerative changes within the bilate ral temporomandibular joints. IMPRESSION: 1. No acute intracranial hemorrhage. 2. Extensive periventricular and subcortical hypoattenuation suggesting advanced chronic microvascul ar changes. Post treatment related changes versus other white matter etiologies may also have this a ppearance. 3. Moderate left maxillary sinus air fluid level suggesting acute sinusitis. Further findings as detailed above. RPTAT: PP .Adrien Sotelo MD, MD Date Time Electronically viewed and signed by .Adrien Sotelo MD, MD on 02/14/2017 07:15 .F/
[2017-02-14 07:52] VITALS: BP 141/61; RESP 18
[2017-02-14] MEDS: ALBUTEROL 0.083% (NEB) 2.5 MG/3 ML AMP INH SCH (08:32)
[2017-02-14] MEDS: DOCUSATE SODIUM 10 MG/ML (10ML CUP) GTB SCH (08:52)
[2017-02-14] MEDS: FERROUS SULFATE 60 MG/ML 5ML CUP GTB SCH (08:53)
[2017-02-14] MEDS: SENNA TAB GTB SCH (08:53)
[2017-02-14] MEDS: SERTRALINE 50 MG TAB PEG SCH (08:53)
[2017-02-14] MEDS: NYSTATIN 30 GM POWDER BTL TOP SCH (08:54)
[2017-02-14] MEDS: HEPARIN 5,000 UNIT/0.5 ML VIAL SC SCH (08:56)
--- NOTE | 2017-02-14 12:24 | RADRPT ---
PROCEDURE: Chest radiograph CLINICAL INDICATION: Shortness of breath with increased sputum. COMPARISON: Radiograph 01/22/2017. TECHNIQUE: Single frontal chest radiograph. FINDINGS: The endotracheal tube terminates at the level of the clavicular heads in expected position Biapical pleural scar, more on the right. Scattered calcified granulomata. No pleural effusion or focal pneumonia. The heart is not enlarged. Aortic atherosclerosis. No suspicious bone lesion. Surgical clips overlie both axilla. IMPRESSION: Chronic scarring at both lung apices, right more than left No acute cardiopulmonary abnormality. RPTAT: [facility] Physician Rudy Date Time Electronically viewed and signed by Physician Rudy on 02/14/2017 12:24 LG/
[2017-02-14 16:21] VITALS: BP 141/61; PULSE 103
--- NOTE | 2017-02-15 08:58 | DS ---
Date/Time of Note Date/Time of Note DATE: 02/15/17 TIME: 08:52 Discharge Summary Admission/Discharge Info Admit Date/Time Feb 04, 2017 at 14:34 Discharge Date/Time Feb 14, 2017 at 13:20 Discharge Diagnosis 1. Increaed SOB 2. Pulmonary debility secondary to acute respiratory failure. 3.Tracheostomy. 4. Dysphagia. 5. Thyroid CA, status post XRT. 6. Hypertension. 7. History of breast CA. 8. 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 9. Impairments in self-care and mobility. Patient Condition: Serious Hospital Course Patient was admitted for comprehensive interdisciplinary acute rehabilitation. Patient made steady functional gains and improved from a mod/max level to a min/ mod level for self care and mobility, including ambulating limited distances with the use of a front wheeled walker. Patient did require close follow up by speech therapy for her dysphagia, however in videofluoroscopy patient was noted to still be aspiration risk, and Gtube feedings were still required. On 02/14 patient was noted to have increased SOB, and required increase O2 to 6 liters. Patient transferred to acute hospital for closer care and monitoring. Primary Care Provider MD SMITA Kelly LIVA L. MD Feb 15, 2017 08:58
== END 2017-02-14 13:20 | disposition short-term general hospital (02) | DRG 945 ==
LOC: VRC 14:34
PROVIDERS: ADMIT Physical Medicine & Rehabilitation; ATTEND Internal Medicine
PROC: F07Z5FZ Bed Mobility Treatment using Assistive, Adaptive, Supportive or Protective Equipment (ICD-10-PCS; principal; 2017-02-05)
PROC: F07Z8FZ Transfer Training Treatment using Assistive, Adaptive, Supportive or Protective Equipment (ICD-10-PCS; 2017-02-05)
PROC: F07Z9FZ Gait Training/Functional Ambulation Treatment using Assistive, Adaptive, Supportive or Protective Equipment (ICD-10-PCS; 2017-02-05)
PROC: F08Z2FZ Grooming/Personal Hygiene Treatment using Assistive, Adaptive, Supportive or Protective Equipment (ICD-10-PCS; 2017-02-05)
PROC: F08Z1FZ Dressing Techniques Treatment using Assistive, Adaptive, Supportive or Protective Equipment (ICD-10-PCS; 2017-02-05)
PROC: F08Z0FZ Bathing/Showering Techniques Treatment using Assistive, Adaptive, Supportive or Protective Equipment (ICD-10-PCS; 2017-02-05)
DX: Z51.89 Encounter for other specified aftercare (principal); F33.1 Major depressive disorder, recurrent, moderate; Z93.0 Tracheostomy status; D64.9 Anemia, unspecified; E11.9 Type 2 diabetes mellitus without complications; R13.10 Dysphagia, unspecified; Z93.1 Gastrostomy status; I10 Essential (primary) hypertension; M12.9 Arthropathy, unspecified; Z85.3 Personal history of malignant neoplasm of breast; Z85.850 Personal history of malignant neoplasm of thyroid; Z90.13 Acquired absence of bilateral breasts and nipples; Z87.891 Personal history of nicotine dependence
CPT/HCPCS: 70460; 71010; 74230; 80053; 81001; 85025; 87081; 87086; 92507; 92523; 92526; 92610; 92611; 94640; 94664; 97110; 97116; 97150; 97163; 97167; 97530; 97535; J1644

== ENCOUNTER 2017-02-14 13:20 | Inpatient (IN) | payer MEDICARE, BC ==
[~2017-02-14] VITALS: Ht 157.5 cm; Wt 64.4 kg
[2017-02-14 13:44] VITALS: PULSE 108
[2017-02-14 14:15] VITALS: Ht 157.5 cm; Wt 64.4 kg
[2017-02-14 15:32] VITALS: BP 136/61; RESP 20
[2017-02-14 16:09] VITALS: PULSE 111
[2017-02-14 16:11] VITALS: PULSE 111
[2017-02-14] MEDS ORDERED: ZOLPIDEM 5 MG TAB PO PRN (16:30)
[2017-02-14] MEDS ORDERED: LACTULOSE 30ML CUP PO PRN (16:30)
[2017-02-14] MEDS: ACETAMINOPHEN 650MG/20.3ML CUP GTB PRN (17:43)
[2017-02-14] MEDS: LORAZEPAM 0.5 MG TAB PO PRN (17:43)
--- NOTE | 2017-02-14 20:12 | HP ---
DATE OF ADMISSION: 02/14/2017 CHIEF COMPLAINT: Shortness of breath. HISTORY OF PRESENT ILLNESS: The patient is a 77-year-old female, with extensive past medical history positive for thyroid cancer, status post-radiation in 2007. Status post- bilateral mastectomy for breast cancer. The patient is status post-cardiopulmonary arrest in 12/2016 and was treated and at [facility] [place]. Was treated for right hemothorax and aspiration pneumonia. Patient also underwent a tracheostomy and G-tube placement at that time. The patient was subsequently transferred to [facility] and was recuperating to acute rehabilitation for pulmonary debility. Patient underwent a swallow evaluation. However, with notion of aspiration. Patient continue G-tube feeding. The patient also had a tracheostomy which was capped off. The patient developed shortness of breath and also became tachycardic. Patient underwent chest x-ray which revealed chronic scarring of both lung apices, right more than left. No acute cardiopulmonary abnormality. The patient also underwent brain CT, which revealed no acute intracranial hemorrhage. Extensive periventricular and subcortical hypo- attenuation suggesting advanced chronic macrovascular changes, some moderate left maxillary sinus air-fluid level suggesting acute sinusitis. The patient was admitted to [facility] to telemetry for evaluation and treatment. PAST SURGICAL HISTORY: Per HPI. SOCIAL HISTORY: Patient is a former smoker. Quit many years ago. Patient denies any alcohol use. Denies any illicit drug use. ALLERGIES: NO KNOWN ALLERGIES. MEDICATIONS: On admission include Seroquel, Zoloft, Prevacid, Synthroid, Peridex, Colace, heparin, hydralazine, nystatin powder, Tylenol, [place], lactulose as needed for constipation. Ativan as needed for agitation and Ambien as needed for insomnia. REVIEW OF SYSTEMS: A 12 point review of system is negative unless mentioned in HPI. PHYSICAL EXAMINATION: GENERAL: Well-developed, well-nourished female, currently is awake, alert to name and situation. VITAL SIGNS: Temperature 97.6, pulse is 111, blood pressure 136/61, respiratory rate 20. Oxygen saturation 97 percent on 3 L nasal cannula. HEENT: Head is atraumatic, normocephalic. PERRLA. NECK: Supple. No cervical lymphadenopathy. The patient has a tracheostomy at the base of the neck which is currently capped. LUNGS: Clear bilaterally. There is no rhonchi, wheezes, rales noted. CARDIAC: The patient is slightly tachycardia. Normal S1, S2. No murmurs, gallops, clicks, rubs noted. ABDOMEN: Round, soft, nondistended, nontender. G-tube with intact stoma. EXTREMITIES: No edema, clubbing, cyanosis. SKIN: No rash or petechiae noted. NEUROLOGICAL: Patient is awake, alert, and oriented x4. Motor strength is 5/5 in all extremities. ASSESSMENT AND PLAN: 1. Acute respiratory insufficiency with shortness of breath. Continue oxygen supplementation. We will obtain ABG. Continue tracheostomy care. Breathing treatment. 2. Rule out acute coronary syndrome. We will obtain a 12 lead EKG and cardiac enzymes every 8 hours x3. 3. Dysphagia with PEG. Resume patient's age G-tube feeding. Monitor residual. Continue aspiration precaution. 4. Hypertension, the patient is currently normotensive. 5. History of thyroid cancer, status post-radiation. Continue Synthroid. 6. Depression. 7. History of breast cancer. Status post-bilateral mastectomy. Continue to monitor. 8. Anemia. Continue iron supplements. 9. Continue to monitor patient on telemetry floor. Continue aspiration precautions. Further recommendations based on clinical course. Plan of care discussed with Dr. Root. DICTATED BY: Zeinab Maki NP. Dictated By: Vladimir Root MD /heber/deandre /Document#: [id number]
[2017-02-14 20:13] VITALS: PULSE 95
[2017-02-14 20:18] VITALS: BP 108/53; RESP 20
[2017-02-14] MEDS: CHLORHEXIDINE GLUCONATE 15 ML UD CUP MT SCH (20:23)
[2017-02-14] MEDS: DOCUSATE SODIUM 100 MG CAP PO SCH (20:23)
[2017-02-14] MEDS: SENNA TAB PO SCH (20:23)
[2017-02-14] MEDS: MICONAZOLE 2% 30 GM CR TOP SCH (20:25)
[2017-02-14] MEDS: NYSTATIN 30 GM POWDER BTL TOP SCH (20:25)
[2017-02-14] MEDS: HEPARIN 5,000 UNIT/0.5 ML VIAL SC SCH (20:44)
[2017-02-14] MEDS: ALBUTEROL 0.083% (NEB) 2.5 MG/3 ML AMP HHN SCH (22:00)
[2017-02-15] VITALS (12 sets, daily range): BP systolic 101–148; BP diastolic 53–67; PULSE 92–107; RESP 16–20
[2017-02-15] MEDS: ALBUTEROL 0.083% (NEB) 2.5 MG/3 ML AMP HHN SCH ×5 (00:29→23:30)
[2017-02-15] MEDS: ACETAMINOPHEN 650MG/20.3ML CUP GTB PRN ×2 (00:57→14:53)
[2017-02-15] MEDS: LEVOTHYROXINE 50 MCG TAB GTB SCH (05:36)
[2017-02-15] MEDS: LANSOPRAZOLE 30 MG CAP GTB SCH (05:36)
[2017-02-15] MEDS: HYDROCODONE/APAP (5/325) TAB GTB PRN (07:23)
[2017-02-15] MEDS: HEPARIN 5,000 UNIT/0.5 ML VIAL SC SCH ×2 (08:42→22:12)
[2017-02-15] MEDS: SERTRALINE 50 MG TAB PO SCH (08:43)
[2017-02-15] MEDS: FERROUS SULFATE 60 MG/ML 5ML CUP GTB SCH (08:44)
[2017-02-15] MEDS: SENNA TAB PO SCH ×2 (08:44→22:09)
[2017-02-15] MEDS: CHLORHEXIDINE GLUCONATE 15 ML UD CUP MT SCH ×2 (08:44→22:08)
[2017-02-15] MEDS: DOCUSATE SODIUM 100 MG CAP PO SCH ×2 (08:44→22:09)
[2017-02-15] MEDS: MICONAZOLE 2% 30 GM CR TOP SCH ×2 (08:45→22:14)
[2017-02-15] MEDS: NYSTATIN 30 GM POWDER BTL TOP SCH ×2 (08:45→22:14)
[2017-02-15 09:02] LABS: BASOPHILS % 0.3 % (0.0-2.0); EOSINOPHILS # 0.2 10^3/ul (0.0-0.5); EOSINOPHILS % 2.1 % (0.0-7.0); HEMATOCRIT 27.1 % (37.0-47.0); HEMOGLOBIN 8.6 g/dl (12.0-16.0); LYMPHOCYTES % 9.3 % (15.0-51.0); MEAN CORPUSCULAR HEMOGLOBIN 31.4 pg (29.0-33.0); MEAN CORPUSCULAR HGB CONC 31.7 g/dl (32.0-37.0); MEAN CORPUSCULAR VOLUME 98.9 fl (82.0-101.0); MEAN PLATELET VOLUME 8.7 fl (7.4-10.4); MONOCYTES % 9.2 % (0.0-11.0); NEUTROPHIL # 8.2 10^3/ul (1.6-7.5); NEUTROPHILS % 78.5 % (39.0-77.0); PLATELET COUNT 274 10^3/UL (140-415); RED BLOOD COUNT 2.74 10^6/ul (4.20-5.40); RED CELL DISTRIBUTION WIDTH 16.1 % (11.5-14.5); WHITE BLOOD COUNT 10.5 10^3/ul (4.8-10.8)
[2017-02-15 09:41] LABS: CALCIUM 8.6 mg/dl (8.4-10.2); CREATININE 0.86 mg/dl (0.44-1.00)
--- NOTE | 2017-02-15 12:41 | PN ---
Date/Time of Note Date/Time of Note DATE: 02/15/17 TIME: 12:40 Assessment/Plan VTE Prophylaxis VTE Prophylaxis Intervention: other Lines/Catheters [facility] Saline Lock Urinary Cath still in place: No Assessment/Plan Chief Complaint/Hosp Course 1. Acute respiratory insufficiency with shortness of breath. Continue oxygen supplementation. We will obtain ABG. Continue tracheostomy care. Breathing treatment. 2. Rule out acute coronary syndrome. We will obtain a 12 lead EKG and cardiac enzymes every 8 hours x3. 3. Dysphagia with PEG. Resume patient's age G-tube feeding. Monitor residual. Continue aspiration precaution. 4. Hypertension, the patient is currently normotensive. 5. History of thyroid cancer, status post-radiation. Continue Synthroid. 6. Depression. 7. History of breast cancer. Status post-bilateral mastectomy. Continue to monitor. 8. Anemia. Continue iron supplements. 9. Continue to monitor patient on telemetry floor. Continue aspiration precautions. Problems: Subjective 24 Hr Interval Summary Free Text/Dictation Patient has shortness of breath Exam/Review of Systems Vital Signs Vitals Vital Signs Date Time Temp Pulse Resp B/P Pulse Ox O2 Delivery O2 Flow Rate FiO2 02/15/17 11:41 99.3 104 16 147/67 100 02/15/17 08:45 Nasal Cannula 4.0 Intake and Output 02/14/17 02/14/17 02/15/17 15:00 23:00 07:00 Intake Total 755 ml 875 ml Balance 755 ml 875 ml Exam Constitutional: well developed Head: atraumatic, normocephalic Neck: supple Respiratory: diminished breath sounds Cardiovascular: regular rate and rhythm Gastrointestinal: non-tender, soft Extremities: normal pulses Results Result Diagram: 02/15/17 0832 02/15/17 0832 Results 24 hrs Laboratory Tests Test 02/14/17 15:25 02/15/17 00:41 02/15/17 08:32 Troponin I < 0.012 0.019 < 0.012 White Blood Count 10.5 # Red Blood Count 2.74 L Hemoglobin 8.6 L Hematocrit 27.1 L Mean Corpuscular Volume 98.9 Mean Corpuscular Hemoglobin 31.4 Mean Corpuscular Hemoglobin Concent 31.7 L Red Cell Distribution Width 16.1 H Platelet Count 274 Mean Platelet Volume 8.7 Neutrophils % 78.5 H Lymphocytes % 9.3 L Monocytes % 9.2 Eosinophils % 2.1 Basophils % 0.3 Nucleated Red Blood Cells % 0.0 Neutrophils # 8.2 H Lymphocytes # 1.0 Monocytes # 1.0 H Eosinophils # 0.2 Basophils # 0.0 Nucleated Red Blood Cells # 0.0 Sodium Level 134 L Potassium Level 5.0 Chloride Level 99 Carbon Dioxide Level 29 Anion Gap 11 Blood Urea Nitrogen 33 H Creatinine 0.86 Glucose Level 141 Calcium Level 8.6 Medications Medications Current Medications Acetaminophen (Tylenol Liquid) 650 mg Q4H PRN GTB PAIN AND OR ELEVATED TEMP Last administered on 02/15/17 00:57; Admin Dose 650 MG; Start 02/14/17 at 16:30 Chlorhexidine Gluconate (Peridex) 15 ml BID MT Last administered on 02/15/17 08:44; Admin Dose 15 ML; Start 02/14/17 at 21:00 Docusate Sodium (Colace) 100 mg BID PO Last administered on 02/14/17 20:23; Admin Dose 100 MG; Start 02/14/17 at 21:00 Ferrous Sulfate (Feosol Liquid Cup) 300 mg DAILY GTB Last administered on 08:44; Admin Dose 300 MG; Start 02/15/17 at 09:00 Heparin Sodium (Porcine) (Heparin (5000 Units/0.5 ml)) 5,000 unit BID SC Last administered on 02/15/17 08:42; Admin Dose 5,000 UNIT; Start 02/14/17 at 21:00 Hydralazine HCl (Apresoline) 25 mg BID GTB Last administered on 02/15/17 08:43 ; Admin Dose 25 MG; Start 02/14/17 at 21:00 Acetaminophen/ Hydrocodone Bitart ([place] (5/325)) 1 tab Q8 PRN GTB PAIN LEVEL 7 -10 Last administered on 02/15/17 07:23; Admin Dose 1 TAB; Start 02/14/17 at 16 :30 Lactulose (Enulose) 20 gm DAILY PRN PO CONSTIPATION; Start 02/14/17 at 16:30 Lansoprazole (Prevacid) 30 mg DAILY@06 GTB Last administered on 02/15/17 05:36 ; Admin Dose 30 MG; Start 02/15/17 at 06:00 Levothyroxine Sodium (Synthroid) 50 mcg DAILY@06 GTB Last administered on 05:36; Admin Dose 50 MCG; Start 02/15/17 at 06:00 Lorazepam (Ativan) 0.5 mg Q6H PRN PO ANXIETY Last administered on 02/14/17 17: 43; Admin Dose 0.5 MG; Start 02/14/17 at 16:30 Miconazole Nitrate (Miconazole 2% Cr) 1 applic BID TOP Last administered on 08:45; Admin Dose 1 APPLIC; Start 02/14/17 at 21:00 Nystatin (Nystatin Powder) 1 applic BID TOP Last administered on 02/15/17 08: 45; Admin Dose 1 APPLIC; Start 02/14/17 at 21:00 Quetiapine Fumarate (Seroquel) 50 mg DAILY GTB ; Start 02/15/17 at 21:00 Senna (Senokot) 1 tab BID PO Last administered on 02/14/17 20:23; Admin Dose 1 TAB; Start 02/14/17 at 21:00 Sertraline HCl (Zoloft) 25 mg DAILY PO Last administered on 02/15/17 08:43; Admin Dose 25 MG; Start 02/15/17 at 09:00 Zolpidem Tartrate (Ambien) 5 mg HS PRN PO INSOMNIA; Start 02/14/17 at 16:30 EZIO CANO Feb 15, 2017 12:40
[2017-02-15] MEDS: QUETIAPINE 25 MG TAB GTB SCH (22:09)
[2017-02-15] MEDS: ATENOLOL 25 MG TAB GTB SCH (22:11)
[2017-02-16] VITALS (10 sets, daily range): BP systolic 94–126; BP diastolic 50–68; PULSE 76–163; RESP 16–20
[2017-02-16] MEDS: LANSOPRAZOLE 30 MG CAP GTB SCH (05:15)
[2017-02-16] MEDS: LEVOTHYROXINE 50 MCG TAB GTB SCH (05:17)
[2017-02-16] MEDS: ALBUTEROL 0.083% (NEB) 2.5 MG/3 ML AMP HHN SCH ×2 (08:00→16:13)
[2017-02-16] MEDS: CHLORHEXIDINE GLUCONATE 15 ML UD CUP MT SCH ×2 (08:17→21:03)
[2017-02-16] MEDS: FERROUS SULFATE 60 MG/ML 5ML CUP GTB SCH (08:17)
[2017-02-16] MEDS: ATENOLOL 25 MG TAB GTB SCH ×2 (08:18→21:05)
[2017-02-16] MEDS: DOCUSATE SODIUM 100 MG CAP PO SCH ×2 (08:18→21:04)
[2017-02-16] MEDS: QUETIAPINE 25 MG TAB GTB SCH (08:18)
[2017-02-16] MEDS: SENNA TAB PO SCH ×2 (08:18→21:04)
[2017-02-16] MEDS: SERTRALINE 50 MG TAB PO SCH (08:19)
[2017-02-16] MEDS: HEPARIN 5,000 UNIT/0.5 ML VIAL SC SCH ×2 (08:20→21:06)
[2017-02-16] MEDS: ACETAMINOPHEN 650MG/20.3ML CUP GTB PRN (08:29)
[2017-02-16] MEDS: MICONAZOLE 2% 30 GM CR TOP SCH ×2 (08:29→21:07)
[2017-02-16] MEDS: NYSTATIN 30 GM POWDER BTL TOP SCH ×2 (08:30→21:11)
--- NOTE | 2017-02-16 11:17 | PN ---
Date/Time of Note Date/Time of Note DATE: 02/16/17 TIME: :17 Assessment/Plan VTE Prophylaxis VTE Prophylaxis Intervention: other Lines/Catheters IV Catheter Type (from Nrs): Saline Lock Urinary Cath still in place: No Assessment/Plan Chief Complaint/Hosp Course 1. Acute respiratory insufficiency with shortness of breath. Continue oxygen supplementation. We will obtain ABG. Continue tracheostomy care. Breathing treatment. 2. Rule out acute coronary syndrome. We will obtain a 12 lead EKG and cardiac enzymes every 8 hours x3. 3. Dysphagia with PEG. Resume patient's age G-tube feeding. Monitor residual. Continue aspiration precaution. 4. Hypertension, the patient is currently normotensive. 5. History of thyroid cancer, status post-radiation. Continue Synthroid. 6. Depression. 7. History of breast cancer. Status post-bilateral mastectomy. Continue to monitor. 8. Anemia. Continue iron supplements. 9. Continue to monitor patient on telemetry floor. Continue aspiration precautions. Problems: Subjective 24 Hr Interval Summary Free Text/Dictation Patient has no complaints Exam/Review of Systems Vital Signs Vitals Vital Signs Date Time Temp Pulse Resp B/P Pulse Ox O2 Delivery O2 Flow Rate FiO2 02/16/17 08:23 4.0 02/16/17 07:29 99.1 82 16 114/56 96 02/15/17 23:30 Nasal Cannula Intake and Output 02/15/17 02/15/17 02/16/17 15:00 23:00 07:00 Intake Total 1270 ml 1270 ml Balance 1270 ml 1270 ml Exam Constitutional: well developed Head: atraumatic, normocephalic Neck: supple Respiratory: diminished breath sounds Cardiovascular: regular rate and rhythm Gastrointestinal: non-tender, soft Extremities: normal pulses Results Result Diagram: 02/15/17 0832 02/15/17 0832 Results 24 hrs Laboratory Tests Test 02/15/17 12:28 Troponin I < 0.012 Medications Medications Current Medications Acetaminophen (Tylenol Liquid) 650 mg Q4H PRN GTB PAIN AND OR ELEVATED TEMP Last administered on 02/16/17 08:29; Admin Dose 650 MG; Start 02/14/17 at 16:30 Chlorhexidine Gluconate (Peridex) 15 ml BID MT Last administered on 02/16/17 08:; Admin Dose 15 ML; Start 02/14/17 at 21:00 Docusate Sodium (Colace) 100 mg BID PO Last administered on 02/16/17 08:18; Admin Dose 100 MG; Start 02/14/17 at 21:00 Ferrous Sulfate (Feosol Liquid Cup) 300 mg DAILY GTB Last administered on 08:17; Admin Dose 300 MG; Start 02/15/17 at 09:00 Heparin Sodium (Porcine) (Heparin (5000 Units/0.5 ml)) 5,000 unit BID SC Last administered on 02/16/17 08:20; Admin Dose 5,000 UNIT; Start 02/14/17 at 21:00 Hydralazine HCl (Apresoline) 25 mg BID GTB Last administered on 02/16/17 08:19 ; Admin Dose 25 MG; Start 02/14/17 at 21:00 Acetaminophen/ Hydrocodone Bitart ([place] (5/325)) 1 tab Q8 PRN GTB PAIN LEVEL 7 -10 Last administered on 02/15/17 07:23; Admin Dose 1 TAB; Start 02/14/17 at 16 :30 Lactulose (Enulose) 20 gm DAILY PRN PO CONSTIPATION; Start 02/14/17 at 16:30 Lansoprazole (Prevacid) 30 mg DAILY@06 GTB Last administered on 02/16/17 05:15 ; Admin Dose 30 MG; Start 02/15/17 at 06:00 Levothyroxine Sodium (Synthroid) 50 mcg DAILY@06 GTB Last administered on 05:17; Admin Dose 50 MCG; Start 02/15/17 at 06:00 Lorazepam (Ativan) 0.5 mg Q6H PRN PO ANXIETY Last administered on 02/14/17 17: 43; Admin Dose 0.5 MG; Start 02/14/17 at 16:30 Miconazole Nitrate (Miconazole 2% Cr) 1 applic BID TOP Last administered on 08:29; Admin Dose 1 APPLIC; Start 02/14/17 at 21:00 Nystatin (Nystatin Powder) 1 applic BID TOP Last administered on 02/16/17 08: 30; Admin Dose 1 APPLIC; Start 02/14/17 at 21:00 Quetiapine Fumarate (Seroquel) 50 mg DAILY GTB Last administered on 02/16/17 08:18; Admin Dose 50 MG; Start 02/15/17 at 21:00 Senna (Senokot) 1 tab BID PO Last administered on 02/16/17 08:18; Admin Dose 1 TAB; Start 02/14/17 at 21:00 Sertraline HCl (Zoloft) 25 mg DAILY PO Last administered on 02/16/17 08:19; Admin Dose 25 MG; Start 02/15/17 at 09:00 Zolpidem Tartrate (Ambien) 5 mg HS PRN PO INSOMNIA; Start 02/14/17 at 16:30 Atenolol (Tenormin) 25 mg BID GTB Last administered on 02/16/17 08:18; Admin Dose 25 MG; Start 02/15/17 at 21:00 EZIO CANO Feb 16, 2017 11:17
[2017-02-16] MEDS: HYDROCODONE/APAP (5/325) TAB GTB PRN (21:04)
[2017-02-17] VITALS (14 sets, daily range): BP systolic 77–153; BP diastolic 35–67; PULSE 66–75; RESP 18–20
[2017-02-17] MEDS: ALBUTEROL 0.083% (NEB) 2.5 MG/3 ML AMP HHN SCH ×3 (00:59→16:00)
[2017-02-17] MEDS: LANSOPRAZOLE 30 MG CAP GTB SCH (05:16)
[2017-02-17] MEDS: LEVOTHYROXINE 50 MCG TAB GTB SCH (05:16)
[2017-02-17 07:19] LABS: BASOPHIL # 0.1 10^3/ul (0.0-0.1); BASOPHILS % 0.5 % (0.0-2.0); EOSINOPHILS # 0.3 10^3/ul (0.0-0.5); EOSINOPHILS % 3.2 % (0.0-7.0); HEMATOCRIT 25.2 % (37.0-47.0); HEMOGLOBIN 8.4 g/dl (12.0-16.0); LYMPHOCYTES # 1.6 10^3/ul (0.8-2.9); LYMPHOCYTES % 15.3 % (15.0-51.0); MEAN CORPUSCULAR HEMOGLOBIN 32.6 pg (29.0-33.0); MEAN CORPUSCULAR HGB CONC 33.3 g/dl (32.0-37.0); MEAN CORPUSCULAR VOLUME 97.7 fl (82.0-101.0); MEAN PLATELET VOLUME 8.7 fl (7.4-10.4); MONOCYTE # 1.2 10^3/ul (0.3-0.9); MONOCYTES % 11.3 % (0.0-11.0); NEUTROPHIL # 7.4 10^3/ul (1.6-7.5); PLATELET COUNT 310 10^3/UL (140-415); RED BLOOD COUNT 2.58 10^6/ul (4.20-5.40); RED CELL DISTRIBUTION WIDTH 15.1 % (11.5-14.5); WHITE BLOOD COUNT 10.7 10^3/ul (4.8-10.8)
[2017-02-17 07:52] LABS: CALCIUM 8.8 mg/dl (8.4-10.2); CREATININE 0.98 mg/dl (0.44-1.00)
[2017-02-17] MEDS: ATENOLOL 25 MG TAB GTB SCH ×2 (08:18→21:12)
[2017-02-17] MEDS: QUETIAPINE 25 MG TAB GTB SCH (08:18)
[2017-02-17] MEDS: FERROUS SULFATE 60 MG/ML 5ML CUP GTB SCH (08:18)
[2017-02-17] MEDS: ACETAMINOPHEN 650MG/20.3ML CUP GTB PRN (08:18)
[2017-02-17] MEDS: CHLORHEXIDINE GLUCONATE 15 ML UD CUP MT SCH ×2 (08:18→21:11)
[2017-02-17] MEDS: SERTRALINE 50 MG TAB PO SCH (08:19)
[2017-02-17] MEDS: HEPARIN 5,000 UNIT/0.5 ML VIAL SC SCH ×2 (08:20→21:32)
[2017-02-17] MEDS: NYSTATIN 30 GM POWDER BTL TOP SCH ×2 (08:21→21:00)
[2017-02-17] MEDS: MICONAZOLE 2% 30 GM CR TOP SCH ×2 (08:21→21:00)
[2017-02-17] MEDS: SENNA TAB PO SCH ×2 (08:24→21:09)
[2017-02-17] MEDS: DOCUSATE SODIUM 100 MG CAP PO SCH ×2 (08:24→21:09)
[2017-02-17] MEDS ORDERED: VANCOMYCIN IV PER PHARMACY XX SCH (11:30)
[2017-02-17] MEDS ORDERED: SOD CHLORIDE 0.9% 250 ML IV ONE (12:30)
[2017-02-17] MEDS ORDERED: VANCOMYCIN 1.5 GM in SOD CHLORIDE 0.9% 250 ML IVPB SCH (13:00)
--- NOTE | 2017-02-17 17:04 | RADRPT ---
Vent Rate: 112 bpm RR Interval: 0 msec OR Interval: 132 msec QRS Duration: 76 msec QT Interval: 328 msec QTC Interval: 447 msec P-R-T [place]: 67 - -3 - 64 degrees Sinus tachycardia Otherwise normal ECG Electronically Signed By: Jose Reese [id number]
[2017-02-17] MEDS: SOD CHLORIDE 0.9% 1,000 ML IV SCH (17:28)
--- NOTE | 2017-02-17 19:25 | PN ---
Date/Time of Note Date/Time of Note DATE: 02/17/17 TIME: 19:15 Assessment/Plan VTE Prophylaxis VTE Prophylaxis Intervention: SCD's Lines/Catheters IV Catheter Type (from [facility]): Saline Lock Urinary Cath still in place: No Assessment/Plan Chief Complaint/Hosp Course Patient with hypotension early in the morning, responded to IV fluid boluses. Problems: Assessment/Plan - Gram-positive cocci bacteremia, obtained sputum culture, vancomycin pharmacy to dose, Dr Iqbal is asked to see patient in infection disease consultation - Acute respiratory insufficiency with shortness of breath. Continue tracheostomy care, breathing treatment. - Rule out acute coronary syndrome. Cardiac enzymes are negative 3 - Dysphagia with PEG. Resume patient's age G-tube feeding. - Hypertension, the patient is currently normotensive. - History of thyroid cancer, status post-radiation. Continue Synthroid. - Depression. - History of breast cancer. Status post-bilateral mastectomy. - Anemia. Continue iron supplements. Further recommendations based on clinical course. Plan of care discussed with Dr. Root. Exam/Review of Systems Vital Signs Vitals Vital Signs Date Time Temp Pulse Resp B/P Pulse Ox O2 Delivery O2 Flow Rate FiO2 02/17/17 16:28 66 02/17/17 15:40 98.0 20 111/46 98 02/17/17 12:38 Room Air 02/17/17 07:48 4.0 Intake and Output 02/16/17 02/16/17 02/17/17 15:00 23:00 07:00 Intake Total 1270 ml 1270 ml Balance 1270 ml 1270 ml Exam Constitutional: alert, oriented Head: normocephalic Neck: other (trach) Respiratory: diminished breath sounds Cardiovascular: nl pulses Gastrointestinal: non-tender, other (G-tube), soft Extremities: normal pulses Results Result Diagram: 02/17/17 0656 02/17/17 0656 Results 24 hrs Laboratory Tests Test 02/17/17 06:56 White Blood Count 10.7 Red Blood Count 2.58 L Hemoglobin 8.4 L Hematocrit 25.2 L Mean Corpuscular Volume 97.7 Mean Corpuscular Hemoglobin 32.6 Mean Corpuscular Hemoglobin Concent 33.3 Red Cell Distribution Width 15.1 H Platelet Count 310 Mean Platelet Volume 8.7 Neutrophils % 69.0 Lymphocytes % 15.3 Monocytes % 11.3 H Eosinophils % 3.2 Basophils % 0.5 Nucleated Red Blood Cells % 0.0 Neutrophils # 7.4 Lymphocytes # 1.6 Monocytes # 1.2 H Eosinophils # 0.3 Basophils # 0.1 Nucleated Red Blood Cells # 0.0 Sodium Level 131 L Potassium Level 5.0 Chloride Level 96 L Carbon Dioxide Level 31 Anion Gap 9 Blood Urea Nitrogen 47 #H Creatinine 0.98 Glucose Level 101 # Calcium Level 8.8 Medications Medications Current Medications Acetaminophen (Tylenol Liquid) 650 mg Q4H PRN GTB PAIN AND OR ELEVATED TEMP Last administered on 02/17/17 08:18; Admin Dose 650 MG; Start 02/14/17 at 16:30 Chlorhexidine Gluconate (Peridex) 15 ml BID MT Last administered on 02/17/17 08:18; Admin Dose 15 ML; Start 02/14/17 at 21:00 Docusate Sodium (Colace) 100 mg BID PO Last administered on 02/16/17 21:04; Admin Dose 100 MG; Start 02/14/17 at 21:00 Ferrous Sulfate (Feosol Liquid Cup) 300 mg DAILY GTB Last administered on 08:18; Admin Dose 300 MG; Start 02/15/17 at 09:00 Heparin Sodium (Porcine) (Heparin (5000 Units/0.5 ml)) 5,000 unit BID SC Last administered on 02/17/17 08:20; Admin Dose 5,000 UNIT; Start 02/14/17 at 21:00 Acetaminophen/ Hydrocodone Bitart ([place] (5/325)) 1 tab Q8 PRN GTB PAIN LEVEL 7 -10 Last administered on 02/16/17 21:04; Admin Dose 1 TAB; Start 02/14/17 at 16 :30 Lactulose (Enulose) 20 gm DAILY PRN PO CONSTIPATION; Start 02/14/17 at 16:30 Lansoprazole (Prevacid) 30 mg DAILY@06 GTB Last administered on 02/17/17 05:16 ; Admin Dose 30 MG; Start 02/15/17 at 06:00 Levothyroxine Sodium (Synthroid) 50 mcg DAILY@06 GTB Last administered on 05:16; Admin Dose 50 MCG; Start 02/15/17 at 06:00 Lorazepam (Ativan) 0.5 mg Q6H PRN PO ANXIETY Last administered on 02/14/17 17: 43; Admin Dose 0.5 MG; Start 02/14/17 at 16:30 Miconazole Nitrate (Miconazole 2% Cr) 1 applic BID TOP Last administered on 08:21; Admin Dose 1 APPLIC; Start 02/14/17 at 21:00 Nystatin (Nystatin Powder) 1 applic BID TOP Last administered on 02/17/17 08: 21; Admin Dose 1 APPLIC; Start 02/14/17 at 21:00 Senna (Senokot) 1 tab BID PO Last administered on 02/16/17 21:04; Admin Dose 1 TAB; Start 02/14/17 at 21:00 Sertraline HCl (Zoloft) 25 mg DAILY PO Last administered on 02/17/17 08:19; Admin Dose 25 MG; Start 02/15/17 at 09:00 Zolpidem Tartrate (Ambien) 5 mg HS PRN PO INSOMNIA; Start 02/14/17 at 16:30 Atenolol 25 mg 25 mg BID GTB Last administered on 02/17/17 08:18; Admin Dose 25 MG; Start 02/15/17 at 21:00 Vancomycin HCl 250 ml @ 125 mls/hr Q24H IVPB ; Start 02/18/17 at 13:00 Sodium Chloride (NS) 1,000 ml @ 70 mls/hr [id number] IV Last administered on 02/17 17:28; Admin Dose 70 MLS/HR; Start 02/17/17 at 17:30 CHARY NICOLAS Feb 17, 2017 19:25
[2017-02-17] MEDS: HYDROCODONE/APAP (5/325) TAB GTB PRN (21:17)
[2017-02-18] VITALS (13 sets, daily range): BP systolic 106–136; BP diastolic 49–76; PULSE 62–73; RESP 16–20
[2017-02-18] MEDS: ALBUTEROL 0.083% (NEB) 2.5 MG/3 ML AMP HHN SCH ×4 (00:17→23:29)
[2017-02-18] MEDS: SOD CHLORIDE 0.9% 1,000 ML IV SCH ×2 (04:17→20:51)
--- NOTE | 2017-02-18 05:07 | CONS ---
DATE OF ADMISSION: 02/14/2017 DATE OF CONSULTATION: 02/17/2017 REASON FOR CONSULTATION: Antibiotic management. HISTORY OF PRESENT ILLNESS: Kathy Sams is a 77-year-old, unfortunate female, who comes in with shortness of breath and is being seen for antibiotic management. PAST MEDICAL HISTORY: Her past problems include. 1. She has extensive past medical history positive for number 1 thyroid cancer status post radiation in 2007. 2. Status post bilateral mastectomy for breast cancer. 3. Status post cardiopulmonary arrest in December 2016, [place] [facility] [place] Was treated for right hemothorax and aspiration pneumonia. 4. Status post tracheostomy. 5. Status post G-tube placement. The patient was transferred to [facility] and was recuperating for Pulmonary debility. She underwent a swallow evaluation, but it was noted to be aspirating. She continues on G-tube feeding. She has a tracheostomy which was capped off. The patient developed shortness of breath and became tachycardic. She underwent chest x-ray, which revealed chronic scarring at both lung apices, right more than left. No acute cardiopulmonary abnormality. She also underwent a brain CT which revealed no acute intracranial hemorrhage. Extensive periventricular and subcortical hypoattenuation suggested advanced chronic macrovascular changes, some moderate left maxillary sinus air fluid level suggesting acute sinusitis. The patient is a former smoker. PAST MEDICAL HISTORY: Operations as outlined. FAMILY HISTORY: Noncontributory. SOCIAL HISTORY: She does not smoke, drink, or abuse drugs, but she was a former smoker. ALLERGIES: NONE TO PENICILLIN, SULFA, OR FOODS. MEDICATION: Per chart. REVIEW OF SYSTEMS: As per HPI. PHYSICAL EXAMINATION: GENERAL: Patient is a well-developed, well-nourished female who is alert, awake, in no acute distress. VITAL SIGNS: Stable. She is afebrile. SKIN: Without generalized rash. HEENT: HEENT within normal limits. NECK: She has a tracheostomy at the base of the neck which is currently capped. CHEST: Decreased breath sounds at the bases. HEART: Without murmur or gallop. ABDOMEN: Soft, nontender, without organosplenomegaly or masses. G-tube is in place. EXTREMITIES: Without cyanosis, clubbing, or edema. RECTAL: Deferred. NEUROLOGICAL: No focal neurological abnormalities. IMPRESSION/PLAN: Patient with acute respiratory insufficiency. HOSPITAL COURSE: A chest x-ray was done on 02/14, which showed chronic scarring at both lung apices, right greater than left. Microbiology, she had gram-positive cocci in pairs and clusters in 1/2 blood cultures. Her white count today is 10.7, BUN and creatinine is 47/0.98. Blood cultures were not yet repeated, so we will do so. The most likely source of infection is her lungs. I do not see a urine culture, so will get that. I will dictate my findings to Dr. Root. Thank you for this [employer]. Dictated By: Cory Iqbal MD JD/heber/shabbir /Document#: [id number]
[2017-02-18] MEDS: LANSOPRAZOLE 30 MG CAP GTB SCH (06:51)
[2017-02-18] MEDS: LEVOTHYROXINE 50 MCG TAB GTB SCH (06:52)
[2017-02-18] MEDS: ACETAMINOPHEN 650MG/20.3ML CUP GTB PRN (08:38)
[2017-02-18] MEDS: FERROUS SULFATE 60 MG/ML 5ML CUP GTB SCH (08:38)
[2017-02-18] MEDS: SERTRALINE 50 MG TAB PO SCH (08:38)
[2017-02-18] MEDS: DOCUSATE SODIUM 100 MG CAP PO SCH ×2 (08:38→20:50)
[2017-02-18] MEDS: CHLORHEXIDINE GLUCONATE 15 ML UD CUP MT SCH ×2 (08:38→20:50)
[2017-02-18] MEDS: SENNA TAB PO SCH ×2 (08:38→20:50)
[2017-02-18] MEDS: ATENOLOL 25 MG TAB GTB SCH ×2 (08:39→20:50)
[2017-02-18] MEDS: MICONAZOLE 2% 30 GM CR TOP SCH ×2 (08:57→20:50)
[2017-02-18] MEDS: HEPARIN 5,000 UNIT/0.5 ML VIAL SC SCH ×2 (08:57→21:14)
[2017-02-18] MEDS: NYSTATIN 30 GM POWDER BTL TOP SCH ×2 (08:57→20:49)
[2017-02-18 09:23] LABS: BASOPHILS % 0.6 % (0.0-2.0); EOSINOPHILS # 0.2 10^3/ul (0.0-0.5); HEMATOCRIT 24.7 % (37.0-47.0); HEMOGLOBIN 7.9 g/dl (12.0-16.0); LYMPHOCYTES # 2.3 10^3/ul (0.8-2.9); LYMPHOCYTES % 33.1 % (15.0-51.0); MEAN CORPUSCULAR HEMOGLOBIN 31.7 pg (29.0-33.0); MEAN CORPUSCULAR VOLUME 99.2 fl (82.0-101.0); MEAN PLATELET VOLUME 8.8 fl (7.4-10.4); MONOCYTE # 0.8 10^3/ul (0.3-0.9); MONOCYTES % 11.2 % (0.0-11.0); NEUTROPHIL # 3.5 10^3/ul (1.6-7.5); NEUTROPHILS % 50.5 % (39.0-77.0); PLATELET COUNT 326 10^3/UL (140-415); RED BLOOD COUNT 2.49 10^6/ul (4.20-5.40); RED CELL DISTRIBUTION WIDTH 14.9 % (11.5-14.5)
[2017-02-18 09:45] LABS: ALBUMIN 2.8 g/dl (3.3-4.9); ALBUMIN/GLOBULIN RATIO 0.68; CALCIUM 8.4 mg/dl (8.4-10.2); CREATININE 0.86 mg/dl (0.44-1.00); POTASSIUM 4.7 mmol/L (3.5-5.1); TOTAL PROTEIN 6.9 g/dl (6.1-8.1)
[2017-02-18] MEDS: VANCOMYCIN 1 GM in NS 250 ML IVPB SCH (13:23)
--- NOTE | 2017-02-18 17:10 | PN ---
DATE: 02/18/2017 SUBJECTIVE DATA: No events overnight. Patient is awake, denies pain, looks comfortable. No fevers. LABORATORY AND DIAGNOSTIC DATA: WBC today is 7, no shift, no bands. BUN 36, creatinine 0.86. MICROBIOLOGY: Blood culture growing gram-positive cocci in pairs and clusters. Urine culture negative. DIAGNOSTICS: Chest x-ray on February 14 showed chronic scarring at both lung apices. ANTIMICROBIALS: Patient is on IV vancomycin. PHYSICAL EXAMINATION: GENERAL: Well-developed, fragile, elderly woman, in no distress. HEENT: Head atraumatic, normocephalic. Sclerae anicteric. Buccal mucosa dry. NECK: Supple. CHEST: Rise symmetrical. Breath sounds diminished at the bases. HEART: S1, S2. ABDOMEN: Soft, bowel sounds present. EXTREMITIES: Without cyanosis. ASSESSMENT: 1. Bacteremia, possibly pulmonary source. 2. [id number] respiratory failure, status post shortness of breath. 3. Dysphagia. 4. History of thyroid cancer, status post radiation. 5. History of breast cancer, status post bilateral mastectomies. 6. Anemia. PLAN: Patient remains stable, pending final cultures. Continue present care. Antibiotics. Dictated By: Ross Matthews NP /heber/lanie /Document#: [id number]
--- NOTE | 2017-02-18 17:49 | PN ---
Date/Time of Note Date/Time of Note DATE: 02/18/17 TIME: 17:46 Assessment/Plan VTE Prophylaxis VTE Prophylaxis Intervention: SCD's Lines/Catheters [facility] Type [facility] Peripheral IV Urinary Cath still in place: No Assessment/Plan Chief Complaint/Hosp Course Assessment/Plan - Gram-positive cocci bacteremia, f/up on cx, abx per ID. Dr Iqbal is following in infection disease consultation - Acute respiratory insufficiency with shortness of breath. Continue tracheostomy care, breathing treatment. - Rule out acute coronary syndrome. Cardiac enzymes are negative 3 - Dysphagia with PEG. Resume patient's age G-tube feeding. - Hypertension, the patient is currently normotensive. - History of thyroid cancer, status post-radiation. Continue Synthroid. - Depression. - History of breast cancer. Status post-bilateral mastectomy. - Anemia. Continue iron supplements. - Protein calorie malnutrition Further recommendations based on clinical course. Plan of care discussed with Dr. Root. Problems: Exam/Review of Systems Vital Signs Vitals Vital Signs Date Time Temp Pulse Resp B/P Pulse Ox O2 Delivery O2 Flow Rate FiO2 02/18/17 17:42 3.0 02/18/17 17:41 68 20 97 Nasal Cannula 02/18/17 15:51 98.7 121/59 Intake and Output 02/17/17 02/17/17 02/18/17 14:59 22:59 06:59 Intake Total 250 ml 1460 ml 1270 ml Balance 250 ml 1460 ml 1270 ml Exam Constitutional: alert, oriented Head: normocephalic Neck: other (trach) Respiratory: diminished breath sounds Cardiovascular: nl pulses Gastrointestinal: non-tender, other (G-tube), soft Extremities: normal pulses Results Result Diagram: 02/18/17 0851 02/18/17 0851 Results 24 hrs Laboratory Tests Test 02/18/17 08:51 White Blood Count 7.0 # Red Blood Count 2.49 L Hemoglobin 7.9 L Hematocrit 24.7 L Mean Corpuscular Volume 99.2 Mean Corpuscular Hemoglobin 31.7 Mean Corpuscular Hemoglobin Concent 32.0 Red Cell Distribution Width 14.9 H Platelet Count 326 Mean Platelet Volume 8.8 Neutrophils % 50.5 Lymphocytes % 33.1 Monocytes % 11.2 H Eosinophils % 3.0 Basophils % 0.6 Nucleated Red Blood Cells % 0.0 Neutrophils # 3.5 Lymphocytes # 2.3 Monocytes # 0.8 Eosinophils # 0.2 Basophils # 0.0 Nucleated Red Blood Cells # 0.0 Sodium Level 132 L Potassium Level 4.7 Chloride Level 99 Carbon Dioxide Level 29 Anion Gap 9 Blood Urea Nitrogen 36 #H Creatinine 0.86 Glucose Level 120 Calcium Level 8.4 Total Bilirubin 0.0 L Direct Bilirubin 0.00 Indirect Bilirubin 0.0 Aspartate Amino Transf (AST/SGOT) 65 H Alanine Aminotransferase (ALT/SGPT) 75 H Alkaline Phosphatase 112 Total Protein 6.9 Albumin 2.8 L Globulin 4.10 H Albumin/Globulin Ratio 0.68 Medications Medications Current Medications Acetaminophen (Tylenol Liquid) 650 mg Q4H PRN GTB PAIN AND OR ELEVATED TEMP Last administered on 02/18/17 08:38; Admin Dose 650 MG; Start 02/14/17 at 16:30 Chlorhexidine Gluconate (Peridex) 15 ml BID MT Last administered on 02/18/17 08:38; Admin Dose 15 ML; Start 02/14/17 at 21:00 Docusate Sodium (Colace) 100 mg BID PO Last administered on 02/18/17 08:38; Admin Dose 100 MG; Start 02/14/17 at 21:00 Ferrous Sulfate (Feosol Liquid Cup) 300 mg DAILY GTB Last administered on 08:38; Admin Dose 300 MG; Start 02/15/17 at 09:00 Heparin Sodium (Porcine) (Heparin (5000 Units/0.5 ml)) 5,000 unit BID SC Last administered on 02/18/17 08:57; Admin Dose 5,000 UNIT; Start 02/14/17 at 21:00 Acetaminophen/ Hydrocodone Bitart ([place] (5/325)) 1 tab Q8 PRN GTB PAIN LEVEL 7 -10 Last administered on 02/17/17 21:17; Admin Dose 1 TAB; Start 02/14/17 at 16 :30 Lactulose (Enulose) 20 gm DAILY PRN PO CONSTIPATION; Start 02/14/17 at 16:30 Lansoprazole (Prevacid) 30 mg DAILY@06 GTB Last administered on 02/18/17 06:51 ; Admin Dose 30 MG; Start 02/15/17 at 06:00 Levothyroxine Sodium (Synthroid) 50 mcg DAILY@06 GTB Last administered on 06:52; Admin Dose 50 MCG; Start 02/15/17 at 06:00 Lorazepam (Ativan) 0.5 mg Q6H PRN PO ANXIETY Last administered on 02/14/17 17: 43; Admin Dose 0.5 MG; Start 02/14/17 at 16:30 Miconazole Nitrate (Miconazole 2% Cr) 1 applic BID TOP Last administered on 08:57; Admin Dose 1 APPLIC; Start 02/14/17 at 21:00 Nystatin (Nystatin Powder) 1 applic BID TOP Last administered on 02/18/17 08: 57; Admin Dose 1 APPLIC; Start 02/14/17 at 21:00 Senna (Senokot) 1 tab BID PO Last administered on 02/18/17 08:38; Admin Dose 1 TAB; Start 02/14/17 at 21:00 Sertraline HCl (Zoloft) 25 mg DAILY PO Last administered on 02/18/17 08:38; Admin Dose 25 MG; Start 02/15/17 at 09:00 Zolpidem Tartrate (Ambien) 5 mg HS PRN PO INSOMNIA; Start 02/14/17 at 16:30 Atenolol 25 mg 25 mg BID GTB Last administered on 02/18/17 08:39; Admin Dose 25 MG; Start 02/15/17 at 21:00 Vancomycin HCl 250 ml @ 125 mls/hr Q24H IVPB Last administered on 02/18/17 13 :23; Admin Dose 125 MLS/HR; Start 02/18/17 at 13:00 Sodium Chloride (NS) 1,000 ml @ 70 mls/hr [id number] IV Last administered on 02/18 04:17; Admin Dose 70 MLS/HR; Start 02/17/17 at 17:30 CHARY NICOLAS Feb 18, 2017 17:49
[2017-02-19] VITALS (11 sets, daily range): BP systolic 115–141; BP diastolic 51–64; PULSE 66–80; RESP 16–20
[2017-02-19] MEDS: HYDROCODONE/APAP (5/325) TAB GTB PRN (00:50)
[2017-02-19] MEDS: LEVOTHYROXINE 50 MCG TAB GTB SCH (06:33)
[2017-02-19] MEDS: LANSOPRAZOLE 30 MG CAP GTB SCH (06:33)
--- NOTE | 2017-02-19 07:31 | RADRPT ---
PROCEDURE: XR Chest. CLINICAL INDICATION: Shortness of breath TECHNIQUE: A single AP view of the chest was obtained. COMPARISON: Chest x-ray dated 02/14/2017 FINDINGS: A tracheostomy tube is in place. Lung volumes are low with compressive changes and crowding of the central pulmonary vascular marking s with left basilar atelectasis . There is scarring of the right lung apex. No pleural effusion or p neumothorax is seen. The cardiomediastinal silhouette is within normal limits for size. Calcificat ions are seen within the aortic arch. The osseous structures demonstrate senescent changes. There ar e bilateral axillary soft tissue surgical clips. IMPRESSION: 1. Low lung volumes with compressive changes and left basilar atelectasis. Otherwise, no significan t interval change. 2. Aortic atherosclerosis. 3. Tracheostomy tube in place. RPTAT: HH .Melody Linda MD, Date Time Electronically viewed and signed by .Melody Linda MD, on 02/19/2017 07:31 .G/
[2017-02-19 07:53] LABS: BASOPHILS % 0.6 % (0.0-2.0); EOSINOPHILS # 0.4 10^3/ul (0.0-0.5); EOSINOPHILS % 5.3 % (0.0-7.0); HEMATOCRIT 23.7 % (37.0-47.0); HEMOGLOBIN 7.6 g/dl (12.0-16.0); LYMPHOCYTES # 1.5 10^3/ul (0.8-2.9); LYMPHOCYTES % 22.5 % (15.0-51.0); MEAN CORPUSCULAR HEMOGLOBIN 31.8 pg (29.0-33.0); MEAN CORPUSCULAR HGB CONC 32.1 g/dl (32.0-37.0); MEAN CORPUSCULAR VOLUME 99.2 fl (82.0-101.0); MEAN PLATELET VOLUME 8.7 fl (7.4-10.4); MONOCYTE # 0.8 10^3/ul (0.3-0.9); MONOCYTES % 12.3 % (0.0-11.0); NEUTROPHIL # 3.7 10^3/ul (1.6-7.5); NEUTROPHILS % 56.7 % (39.0-77.0); PLATELET COUNT 299 10^3/UL (140-415); RED BLOOD COUNT 2.39 10^6/ul (4.20-5.40); RED CELL DISTRIBUTION WIDTH 14.9 % (11.5-14.5); WHITE BLOOD COUNT 6.6 10^3/ul (4.8-10.8)
[2017-02-19] MEDS: ALBUTEROL 0.083% (NEB) 2.5 MG/3 ML AMP HHN SCH ×3 (08:10→23:47)
[2017-02-19 08:27] LABS: CALCIUM 8.4 mg/dl (8.4-10.2); CREATININE 0.78 mg/dl (0.44-1.00); POTASSIUM 4.6 mmol/L (3.5-5.1)
[2017-02-19] MEDS: CHLORHEXIDINE GLUCONATE 15 ML UD CUP MT SCH ×2 (09:32→20:35)
[2017-02-19] MEDS: ATENOLOL 25 MG TAB GTB SCH ×2 (09:32→20:37)
[2017-02-19] MEDS: SENNA TAB PO SCH ×2 (09:33→20:36)
[2017-02-19] MEDS: DOCUSATE SODIUM 100 MG CAP PO SCH ×2 (09:33→20:36)
[2017-02-19] MEDS: NYSTATIN 30 GM POWDER BTL TOP SCH ×2 (09:33→20:38)
[2017-02-19] MEDS: SERTRALINE 50 MG TAB PO SCH (09:33)
[2017-02-19] MEDS: MICONAZOLE 2% 30 GM CR TOP SCH ×2 (09:33→20:38)
[2017-02-19] MEDS: FERROUS SULFATE 60 MG/ML 5ML CUP GTB SCH (09:33)
[2017-02-19] MEDS: HEPARIN 5,000 UNIT/0.5 ML VIAL SC SCH ×2 (09:39→20:37)
[2017-02-19] MEDS: SOD CHLORIDE 0.9% 1,000 ML IV SCH (11:47)
[2017-02-19] MEDS: VANCOMYCIN 1 GM in NS 250 ML IVPB SCH (13:46)
[2017-02-19] MEDS ORDERED: SOD CHLORIDE 0.9% 250 ML IV* ONE (15:52)
--- NOTE | 2017-02-19 15:52 | PN ---
Date/Time of Note Date/Time of Note DATE: 02/19/17 TIME: 15:50 Assessment/Plan VTE Prophylaxis VTE Prophylaxis Intervention: SCD's Lines/Catheters [facility] Type (from [facility]): Peripheral IV Urinary Cath still in place: No Assessment/Plan Chief Complaint/Hosp Course Patient denies any chest pain denies shortness of breath, hemoglobin is 7.6, transfuse 1 unit of packed red blood cells. Assessment/Plan - Gram-positive cocci bacteremia, f/up on cx, abx per ID. Dr Iqbal is following in infection disease consultation - Acute respiratory insufficiency with shortness of breath. Continue tracheostomy care, breathing treatment. - Rule out acute coronary syndrome. Cardiac enzymes are negative 3 - Dysphagia with PEG. Resume patient's age G-tube feeding. - Hypertension, the patient is currently normotensive. - History of thyroid cancer, status post-radiation. Continue Synthroid. - Depression. - History of breast cancer. Status post-bilateral mastectomy. - Anemia. Continue iron supplements. - Protein calorie malnutrition Further recommendations based on clinical course. Plan of care discussed with Dr. Root. Problems: Exam/Review of Systems Vital Signs Vitals Vital Signs Date Time Temp Pulse Resp B/P Pulse Ox O2 Delivery O2 Flow Rate FiO2 02/19/17 15:44 98.4 70 18 135/62 99 02/19/17 08:10 3.0 02/19/17 08:10 Nasal Cannula Intake and Output 02/18/17 02/18/17 02/19/17 15:00 23:00 07:00 Intake Total 1270 ml 1270 ml Balance 1270 ml 1270 ml Exam Constitutional: alert, oriented Head: normocephalic Neck: other (trach) Respiratory: diminished breath sounds Cardiovascular: nl pulses Gastrointestinal: non-tender, other (G-tube), soft Extremities: normal pulses Results Result Diagram: 02/19/1770102/19/17701 Results 24 hrs Laboratory Tests Test 02/19/17 07:02 White Blood Count 6.6 Red Blood Count 2.39 L Hemoglobin 7.6 L Hematocrit 23.7 L Mean Corpuscular Volume 99.2 Mean Corpuscular Hemoglobin 31.8 Mean Corpuscular Hemoglobin Concent 32.1 Red Cell Distribution Width 14.9 H Platelet Count 299 Mean Platelet Volume 8.7 Neutrophils % 56.7 Lymphocytes % 22.5 Monocytes % 12.3 H Eosinophils % 5.3 Basophils % 0.6 Nucleated Red Blood Cells % 0.0 Neutrophils # 3.7 Lymphocytes # 1.5 Monocytes # 0.8 Eosinophils # 0.4 Basophils # 0.0 Nucleated Red Blood Cells # 0.0 Sodium Level 137 Potassium Level 4.6 Chloride Level 104 Carbon Dioxide Level 29 Anion Gap 9 Blood Urea Nitrogen 24 #H Creatinine 0.78 Glucose Level 130 Calcium Level 8.4 Medications Medications Current Medications Acetaminophen (Tylenol Liquid) 650 mg Q4H PRN GTB PAIN AND OR ELEVATED TEMP Last administered on 02/18/17 08:38; Admin Dose 650 MG; Start 02/14/17 at 16:30 Chlorhexidine Gluconate (Peridex) 15 ml BID MT Last administered on 02/19/17 09:32; Admin Dose 15 ML; Start 02/14/17 at 21:00 Docusate Sodium (Colace) 100 mg BID PO Last administered on 02/19/17 09:33; Admin Dose 100 MG; Start 02/14/17 at 21:00 Ferrous Sulfate (Feosol Liquid Cup) 300 mg DAILY GTB Last administered on 09:33; Admin Dose 300 MG; Start 02/15/17 at 09:00 Heparin Sodium (Porcine) (Heparin (5000 Units/0.5 ml)) 5,000 unit BID SC Last administered on 02/19/17 09:39; Admin Dose 5,000 UNIT; Start 02/14/17 at 21:00 Acetaminophen/ Hydrocodone Bitart ([place] (5/325)) 1 tab Q8 PRN GTB PAIN LEVEL 7 -10 Last administered on 02/19/17 00:50; Admin Dose 1 TAB; Start 02/14/17 at 16 :30 Lactulose (Enulose) 20 gm DAILY PRN PO CONSTIPATION; Start 02/14/17 at 16:30 Lansoprazole (Prevacid) 30 mg DAILY@06 GTB Last administered on 02/19/17 06:33 ; Admin Dose 30 MG; Start 02/15/17 at 06:00 Levothyroxine Sodium (Synthroid) 50 mcg DAILY@06 GTB Last administered on 06:33; Admin Dose 50 MCG; Start 02/15/17 at 06:00 Lorazepam (Ativan) 0.5 mg Q6H PRN PO ANXIETY Last administered on 02/14/17 17: 43; Admin Dose 0.5 MG; Start 02/14/17 at 16:30 Miconazole Nitrate (Miconazole 2% Cr) 1 applic BID TOP Last administered on 09:33; Admin Dose 1 APPLIC; Start 02/14/17 at 21:00 Nystatin (Nystatin Powder) 1 applic BID TOP Last administered on 02/19/17 09: 33; Admin Dose 1 APPLIC; Start 02/14/17 at 21:00 Senna (Senokot) 1 tab BID PO Last administered on 02/19/17 09:33; Admin Dose 1 TAB; Start 02/14/17 at 21:00 Sertraline HCl (Zoloft) 25 mg DAILY PO Last administered on 02/19/17 09:33; Admin Dose 25 MG; Start 02/15/17 at 09:00 Zolpidem Tartrate (Ambien) 5 mg HS PRN PO INSOMNIA; Start 02/14/17 at 16:30 Atenolol 25 mg 25 mg BID GTB Last administered on 02/19/17 09:32; Admin Dose 25 MG; Start 02/15/17 at 21:00 Vancomycin HCl 250 ml @ 125 mls/hr Q24H IVPB Last administered on 02/19/17 13 :46; Admin Dose 125 MLS/HR; Start 02/18/17 at 13:00 Sodium Chloride (NS) 1,000 ml @ 70 mls/hr [id number] IV Last administered on 02/19 11:47; Admin Dose 70 MLS/HR; Start 02/17/17 at 17:30 Miscellaneous Information (*Rx Drug Level Order Reminder*) VANCOMYCIN TROUGH AT 1200 ONCE ONCE XX ; Start 02/20/17 at 12:00; Stop 02/20/17 at 12:01 CHARY NICOLAS Feb 19, 2017 15:51
--- NOTE | 2017-02-19 19:26 | CONS ---
Date/Time of Note Date/Time of Note DATE: 02/19/17 TIME: 19:25 Assessment/Plan Assessment/Plan Chief Complaint/Hosp Course SUBJECTIVE DATA: No events overnight. Patient is awake, denies pain, looks comfortable. No fevers. MICROBIOLOGY: Blood culture growing gram-positive cocci in pairs and clusters. Urine culture negative. DIAGNOSTICS: Chest x-ray on February 14 showed chronic scarring at both lung apices. ANTIMICROBIALS: Patient is on IV vancomycin. PHYSICAL EXAMINATION: GENERAL: Well-developed, fragile, elderly woman, in no distress. HEENT: Head atraumatic, normocephalic. Sclerae anicteric. Buccal mucosa dry. NECK: Supple. CHEST: Rise symmetrical. Breath sounds diminished at the bases. HEART: S1, S2. ABDOMEN: Soft, bowel sounds present. EXTREMITIES: Without cyanosis. ASSESSMENT: 1. Bacteremia, r/o contaminant, possibly pulmonary source. 2. Eeesp-wd-nkwnqga respiratory failure, status post shortness of breath. 3. Dysphagia. 4. History of thyroid cancer, status post radiation. 5. History of breast cancer, status post bilateral mastectomies. 6. Anemia. PLAN: Patient remains stable, pending final cultures. Continue antibiotics, repeat cxr in am. Problems: Consultation Date/Type/Reason Admit Date/Time Feb 14, 2017 at 13:20 Initial Consult Date Type of Consultation: ID Exam/Review of Systems Vital Signs Vitals Vital Signs Date Time Temp Pulse Resp B/P Pulse Ox O2 Delivery O2 Flow Rate FiO2 02/19/17 16:58 68 20 98 Nasal Cannula 3.0 02/19/17 15:44 98.4 135/62 Intake and Output 02/18/17 02/18/17 02/19/17 15:00 23:00 07:00 Intake Total 1270 ml 1270 ml Balance 1270 ml 1270 ml Results Result Diagram: 02/19/17 0702 02/19/17 0702 Results 24 hrs Laboratory Tests Test 02/19/17 07:02 White Blood Count 6.6 Red Blood Count 2.39 L Hemoglobin 7.6 L Hematocrit 23.7 L Mean Corpuscular Volume 99.2 Mean Corpuscular Hemoglobin 31.8 Mean Corpuscular Hemoglobin Concent 32.1 Red Cell Distribution Width 14.9 H Platelet Count 299 Mean Platelet Volume 8.7 Neutrophils % 56.7 Lymphocytes % 22.5 Monocytes % 12.3 H Eosinophils % 5.3 Basophils % 0.6 Nucleated Red Blood Cells % 0.0 Neutrophils # 3.7 Lymphocytes # 1.5 Monocytes # 0.8 Eosinophils # 0.4 Basophils # 0.0 Nucleated Red Blood Cells # 0.0 Sodium Level 137 Potassium Level 4.6 Chloride Level 104 Carbon Dioxide Level 29 Anion Gap 9 Blood Urea Nitrogen 24 #H Creatinine 0.78 Glucose Level 130 Calcium Level 8.4 Medications Medications Current Medications Acetaminophen (Tylenol Liquid) 650 mg Q4H PRN GTB PAIN AND OR ELEVATED TEMP Last administered on 02/18/17 08:38; Admin Dose 650 MG; Start 02/14/17 at 16:30 Chlorhexidine Gluconate (Peridex) 15 ml BID MT Last administered on 02/19/17 09:32; Admin Dose 15 ML; Start 02/14/17 at 21:00 Docusate Sodium (Colace) 100 mg BID PO Last administered on 02/19/17 09:33; Admin Dose 100 MG; Start 02/14/17 at 21:00 Ferrous Sulfate (Feosol Liquid Cup) 300 mg DAILY GTB Last administered on 09:33; Admin Dose 300 MG; Start 02/15/17 at 09:00 Heparin Sodium (Porcine) (Heparin (5000 Units/0.5 ml)) 5,000 unit BID SC Last administered on 02/19/17 09:39; Admin Dose 5,000 UNIT; Start 02/14/17 at 21:00 Acetaminophen/ Hydrocodone Bitart ([place] (5/325)) 1 tab Q8 PRN GTB PAIN LEVEL 7 -10 Last administered on 02/19/17 00:50; Admin Dose 1 TAB; Start 02/14/17 at 16 :30 Lactulose (Enulose) 20 gm DAILY PRN PO CONSTIPATION; Start 02/14/17 at 16:30 Lansoprazole (Prevacid) 30 mg DAILY@06 GTB Last administered on 02/19/17 06:33 ; Admin Dose 30 MG; Start 02/15/17 at 06:00 Levothyroxine Sodium (Synthroid) 50 mcg DAILY@06 GTB Last administered on 06:33; Admin Dose 50 MCG; Start 02/15/17 at 06:00 Lorazepam (Ativan) 0.5 mg Q6H PRN PO ANXIETY Last administered on 02/14/17 17: 43; Admin Dose 0.5 MG; Start 02/14/17 at 16:30 Miconazole Nitrate (Miconazole 2% Cr) 1 applic BID TOP Last administered on 09:33; Admin Dose 1 APPLIC; Start 02/14/17 at 21:00 Nystatin (Nystatin Powder) 1 applic BID TOP Last administered on 02/19/17 09: 33; Admin Dose 1 APPLIC; Start 02/14/17 at 21:00 Senna (Senokot) 1 tab BID PO Last administered on 02/19/17 09:33; Admin Dose 1 TAB; Start 02/14/17 at 21:00 Sertraline HCl (Zoloft) 25 mg DAILY PO Last administered on 02/19/17 09:33; Admin Dose 25 MG; Start 02/15/17 at 09:00 Zolpidem Tartrate (Ambien) 5 mg HS PRN PO INSOMNIA; Start 02/14/17 at 16:30 Atenolol 25 mg 25 mg BID GTB Last administered on 02/19/17 09:32; Admin Dose 25 MG; Start 02/15/17 at 21:00 Vancomycin HCl 250 ml @ 125 mls/hr Q24H IVPB Last administered on 02/19/17 13 :46; Admin Dose 125 MLS/HR; Start 02/18/17 at 13:00 Sodium Chloride (NS) 1,000 ml @ 70 mls/hr [id number] IV Last administered on 02/19 11:47; Admin Dose 70 MLS/HR; Start 02/17/17 at 17:30 Miscellaneous Information (*Rx Drug Level Order Reminder*) VANCOMYCIN TROUGH AT 1200 ONCE ONCE XX ; Start 02/20/17 at 12:00; Stop 02/20/17 at 12:01 INOCENCIA FOY NP Feb 19, 2017 19:26
[2017-02-20] VITALS (12 sets, daily range): BP systolic 128–160; BP diastolic 63–74; PULSE 63–75; RESP 16–20
[2017-02-20] MEDS: ACETAMINOPHEN 650MG/20.3ML CUP GTB PRN (00:10)
[2017-02-20] MEDS: SOD CHLORIDE 0.9% 1,000 ML IV SCH ×2 (02:16→17:00)
[2017-02-20] MEDS: LANSOPRAZOLE 30 MG CAP GTB SCH (05:25)
[2017-02-20] MEDS: LEVOTHYROXINE 50 MCG TAB GTB SCH (05:25)
[2017-02-20] MEDS: ALBUTEROL 0.083% (NEB) 2.5 MG/3 ML AMP HHN SCH ×3 (08:00→23:15)
[2017-02-20] MEDS: CHLORHEXIDINE GLUCONATE 15 ML UD CUP MT SCH ×2 (09:27→21:37)
[2017-02-20] MEDS: SENNA TAB PO SCH ×2 (09:27→21:37)
[2017-02-20] MEDS: FERROUS SULFATE 60 MG/ML 5ML CUP GTB SCH (09:27)
[2017-02-20] MEDS: ATENOLOL 25 MG TAB GTB SCH ×2 (09:27→21:34)
[2017-02-20] MEDS: DOCUSATE SODIUM 100 MG CAP PO SCH ×2 (09:27→21:37)
[2017-02-20] MEDS: SERTRALINE 50 MG TAB PO SCH (09:28)
[2017-02-20] MEDS: HEPARIN 5,000 UNIT/0.5 ML VIAL SC SCH ×2 (09:29→21:47)
[2017-02-20] MEDS: MICONAZOLE 2% 30 GM CR TOP SCH ×2 (09:45→21:39)
[2017-02-20] MEDS: NYSTATIN 30 GM POWDER BTL TOP SCH ×2 (09:45→21:38)
--- NOTE | 2017-02-20 10:11 | PN ---
Date/Time of Note Date/Time of Note DATE: 02/20/17 TIME: 10:07 Assessment/Plan VTE Prophylaxis VTE Prophylaxis Intervention: other Lines/Catheters IV [facility] Type (from [facility] Peripheral IV Urinary Cath still in place: No Assessment/Plan Assessment/Plan - Gram-positive cocci bacteremia, f/up on cx, abx per ID. Dr Iqbal is following in infection disease consultation - Acute respiratory insufficiency with shortness of breath. Continue tracheostomy care, breathing treatment. - Rule out acute coronary syndrome. Cardiac enzymes are negative 3 - Dysphagia with PEG. Resume patient's age G-tube feeding. - Hypertension, the patient is currently normotensive. - History of thyroid cancer, status post-radiation. Continue Synthroid. - Depression. - History of breast cancer. Status post-bilateral mastectomy. - Anemia. Continue iron supplements. - Protein calorie malnutrition Further recommendations based on clinical course. Plan of care discussed with Dr. Root. Subjective 24 Hr Interval Summary Free Text/Dictation resting, trach intact, denies any chest pain , c/o shortness of breath at times , ok now, hemoglobin is 7.6 sp 1 unit of packed red blood cells. No labs to review- dw staff - to fu. Respiratory: shortness of breath Cardiovascular: no complaints Gastrointestinal: no complaints Genitourinary: no complaints Musculoskeletal: no complaints Exam/Review of Systems Vital Signs Vitals Vital Signs Date Time Temp Pulse Resp B/P Pulse Ox O2 Delivery O2 Flow Rate FiO2 02/20/17 08:10 3.0 02/20/17 08:00 63 02/20/17 07:35 98.9 16 145/65 100 02/19/17 23:47 Nasal Cannula Intake and Output 02/19/17 02/19/17 02/20/17 15:00 23:00 07:00 Intake Total 1270 ml Balance 1270 ml Exam Constitutional: alert, well developed Cardiovascular: nl pulses Gastrointestinal: non-tender, soft Musculoskeletal: muscle weakness Extremities: normal pulses Neurological: nl mental status, nl speech Results Result Diagram: 02/19/17 0702 02/19/17 07 Medications Medications Current Medications Acetaminophen (Tylenol Liquid) 650 mg Q4H PRN GTB PAIN AND OR ELEVATED TEMP Last administered on 02/20/17t 00:10; Admin Dose 650 MG; Start 02/14/17 at 16:30 Chlorhexidine Gluconate (Peridex) 15 ml BID MT Last administered on 02/20/17 09:27; Admin Dose 15 ML; Start 02/14/17 at 21:00 Docusate Sodium (Colace) 100 mg BID PO Last administered on 02/20/17 09:27; Admin Dose 100 MG; Start 02/14/17 at 21:00 Ferrous Sulfate (Feosol Liquid Cup) 300 mg DAILY GTB Last administered on 09:27; Admin Dose 300 MG; Start 02/15/17 at 09:00 Heparin Sodium (Porcine) (Heparin (5000 Units/0.5 ml)) 5,000 unit BID SC Last administered on 02/20/17 09:29; Admin Dose 5,000 UNIT; Start 02/14/17 at 21:00 Acetaminophen/ Hydrocodone Bitart ([place] (5/325)) 1 tab Q8 PRN GTB PAIN LEVEL 7 -10 Last administered on 02/19/17 00:50; Admin Dose 1 TAB; Start 02/14/17 at 16 :30 Lactulose (Enulose) 20 gm DAILY PRN PO CONSTIPATION; Start 02/14/17 at 16:30 Lansoprazole (Prevacid) 30 mg DAILY@06 GTB Last administered on 02/20/17 05:25 ; Admin Dose 30 MG; Start 02/15/17 at 06:00 Levothyroxine Sodium (Synthroid) 50 mcg DAILY@06 GTB Last administered on 05:25; Admin Dose 50 MCG; Start 02/15/17 at 06:00 Lorazepam (Ativan) 0.5 mg Q6H PRN PO ANXIETY Last administered on 02/14/17 17: 43; Admin Dose 0.5 MG; Start 02/14/17 at 16:30 Miconazole Nitrate (Miconazole 2% Cr) 1 applic BID TOP Last administered on 09:45; Admin Dose 1 APPLIC; Start 02/14/17 at 21:00 Nystatin (Nystatin Powder) 1 applic BID TOP Last administered on 02/20/17 09: 45; Admin Dose 1 APPLIC; Start 02/14/17 at 21:00 Senna (Senokot) 1 tab BID PO Last administered on 02/20/17 09:27; Admin Dose 1 TAB; Start 02/14/17 at 21:00 Sertraline HCl (Zoloft) 25 mg DAILY PO Last administered on 02/20/17 09:28; Admin Dose 25 MG; Start 02/15/17 at 09:00 Zolpidem Tartrate (Ambien) 5 mg HS PRN PO INSOMNIA; Start 02/14/17 at 16:30 Atenolol 25 mg 25 mg BID GTB Last administered on 02/20/17 09:27; Admin Dose 25 MG; Start 02/15/17 at 21:00 Vancomycin HCl 250 ml @ 125 mls/hr Q24H IVPB Last administered on 02/19/17 13 :46; Admin Dose 125 MLS/HR; Start 02/18/17 at 13:00 Sodium Chloride (NS) 1,000 ml @ 70 mls/hr [id number] IV Last administered on 02/20 02:16; Admin Dose 70 MLS/HR; Start 02/17/17 at 17:30 Miscellaneous Information (*Rx Drug Level Order Reminder*) VANCOMYCIN TROUGH AT 1200 ONCE ONCE XX ; Start 02/20/17 at 12:00; Stop 02/20/17 at 12:01 ROMEO BRIAN Feb 20, 2017 10:11
[2017-02-20] MEDS ORDERED: FLUCONAZOLE 100 MG TAB PO ONE (11:30)
[2017-02-20 12:12] LABS: ABNORMAL IP MESSAGE 1; BASOPHIL # 0.1 10^3/ul (0.0-0.1); BASOPHILS % 0.8 % (0.0-2.0); EOSINOPHILS # 0.4 10^3/ul (0.0-0.5); HEMATOCRIT 29.2 % (37.0-47.0); HEMOGLOBIN 9.4 g/dl (12.0-16.0); LYMPHOCYTES # 1.3 10^3/ul (0.8-2.9); LYMPHOCYTES % 20.9 % (15.0-51.0); MEAN CORPUSCULAR HEMOGLOBIN 30.9 pg (29.0-33.0); MEAN CORPUSCULAR HGB CONC 32.2 g/dl (32.0-37.0); MEAN CORPUSCULAR VOLUME 96.1 fl (82.0-101.0); MEAN PLATELET VOLUME 8.7 fl (7.4-10.4); MONOCYTE # 0.7 10^3/ul (0.3-0.9); MONOCYTES % 10.8 % (0.0-11.0); NEUTROPHIL # 3.5 10^3/ul (1.6-7.5); NEUTROPHILS % 55.4 % (39.0-77.0); PLATELET COUNT 333 10^3/UL (140-415); RED BLOOD COUNT 3.04 10^6/ul (4.20-5.40); RED CELL DISTRIBUTION WIDTH 16.3 % (11.5-14.5); WHITE BLOOD COUNT 6.4 10^3/ul (4.8-10.8)
[2017-02-20 12:21] LABS: POSITIVE DIFF @See below
[2017-02-20 12:27] LABS: CALCIUM 8.7 mg/dl (8.4-10.2); CREATININE 0.74 mg/dl (0.44-1.00)
[2017-02-20] MEDS: VANCOMYCIN 1 GM in NS 250 ML IVPB SCH (12:51)
--- NOTE | 2017-02-20 13:46 | CONS ---
Date/Time of Note Date/Time of Note DATE: 02/20/17 TIME: 13:45 Assessment/Plan Assessment/Plan Chief Complaint/Hosp Course SUBJECTIVE DATA: No events overnight. Patient is awake, denies pain, looks comfortable. No fevers, no n/v/d. DIAGNOSTICS: Chest x-ray on February 14 showed chronic scarring at both lung apices. ANTIMICROBIALS: IV vancomycin. PHYSICAL EXAMINATION: GENERAL: Well-developed, fragile, elderly woman, in no distress. HEENT: Head atraumatic, normocephalic. Sclerae anicteric. Buccal mucosa dry. NECK: Supple. CHEST: Rise symmetrical. Breath sounds diminished at the bases. HEART: S1, S2. ABDOMEN: Soft, bowel sounds present. EXTREMITIES: Without cyanosis. ASSESSMENT: 1. Bacteremia, c/w contaminant 2. Tbmpv-na-pwcwtir respiratory failure, status post shortness of breath. 3. Dysphagia. 4. History of thyroid cancer, status post radiation. 5. History of breast cancer, status post bilateral mastectomies. 6. Anemia. PLAN: Patient remains stable, repeat bld cx negative, will dc abx and observe, f/u cxr. DW pt/staff Problems: Consultation Date/Type/Reason Admit Date/Time Feb 14, 2017 at 13:20 Type of Consultation: ID Exam/Review of Systems Vital Signs Vitals Vital Signs Date Time Temp Pulse Resp B/P Pulse Ox O2 Delivery O2 Flow Rate FiO2 02/20/17 12:00 66 02/20/17 11:28 98.2 18 160/69 100 02/20/17 08:10 3.0 02/19/17 23:47 Nasal Cannula Intake and Output 02/19/17 02/19/17 02/20/17 15:00 23:00 07:00 Intake Total 1270 ml Balance 1270 ml Results Result Diagram: 02/20/17 1155 02/20/17 1155 Results 24 hrs Laboratory Tests Test 02/20/17 11:55 White Blood Count 6.4 Red Blood Count 3.04 #L Hemoglobin 9.4 #L Hematocrit 29.2 #L Mean Corpuscular Volume 96.1 Mean Corpuscular Hemoglobin 30.9 Mean Corpuscular Hemoglobin Concent 32.2 Red Cell Distribution Width 16.3 H Platelet Count 333 Mean Platelet Volume 8.7 Neutrophils % 55.4 Lymphocytes % 20.9 Monocytes % 10.8 Eosinophils % 6.0 Basophils % 0.8 Nucleated Red Blood Cells % 0.0 Neutrophils # 3.5 Lymphocytes # 1.3 Monocytes # 0.7 Eosinophils # 0.4 Basophils # 0.1 Nucleated Red Blood Cells # 0.0 Sodium Level 137 Potassium Level 5.0 Chloride Level 102 Carbon Dioxide Level 30 Anion Gap 10 Blood Urea Nitrogen 19 Creatinine 0.74 Glucose Level 109 Calcium Level 8.7 Vancomycin Level Trough 12.3 Medications Medications Current Medications Acetaminophen (Tylenol Liquid) 650 mg Q4H PRN GTB PAIN AND OR ELEVATED TEMP Last administered on 02/20/17 00:10; Admin Dose 650 MG; Start 02/14/17 at 16:30 Chlorhexidine Gluconate (Peridex) 15 ml BID MT Last administered on 02/20/17 09:27; Admin Dose 15 ML; Start 02/14/17 at 21:00 Docusate Sodium (Colace) 100 mg BID PO Last administered on 02/20/17 09:27; Admin Dose 100 MG; Start 02/14/17 at 21:00 Ferrous Sulfate (Feosol Liquid Cup) 300 mg DAILY GTB Last administered on 09:27; Admin Dose 300 MG; Start 02/15/17 at 09:00 Heparin Sodium (Porcine) (Heparin (5000 Units/0.5 ml)) 5,000 unit BID SC Last administered on 02/20/17 09:29; Admin Dose 5,000 UNIT; Start 02/14/17 at 21:00 Acetaminophen/ Hydrocodone Bitart ([place] (5/325)) 1 tab Q8 PRN GTB PAIN LEVEL 7 -10 Last administered on 02/19/17 00:50; Admin Dose 1 TAB; Start 02/14/17 at 16 :30 Lactulose (Enulose) 20 gm DAILY PRN PO CONSTIPATION; Start 02/14/17 at 16:30 Lansoprazole (Prevacid) 30 mg DAILY@06 GTB Last administered on 02/20/17 05:25 ; Admin Dose 30 MG; Start 02/15/17 at 06:00 Levothyroxine Sodium (Synthroid) 50 mcg DAILY@06 GTB Last administered on 05:25; Admin Dose 50 MCG; Start 02/15/17 at 06:00 Lorazepam (Ativan) 0.5 mg Q6H PRN PO ANXIETY Last administered on 02/14/17 17: 43; Admin Dose 0.5 MG; Start 02/14/17 at 16:30 Miconazole Nitrate (Miconazole 2% Cr) 1 applic BID TOP Last administered on 09:45; Admin Dose 1 APPLIC; Start 02/14/17 at 21:00 Nystatin (Nystatin Powder) 1 applic BID TOP Last administered on 02/20/17 09: 45; Admin Dose 1 APPLIC; Start 02/14/17 at 21:00 Senna (Senokot) 1 tab BID PO Last administered on 02/20/17 09:27; Admin Dose 1 TAB; Start 02/14/17 at 21:00 Sertraline HCl (Zoloft) 25 mg DAILY PO Last administered on 02/20/17 09:28; Admin Dose 25 MG; Start 02/15/17 at 09:00 Zolpidem Tartrate (Ambien) 5 mg HS PRN PO INSOMNIA; Start 02/14/17 at 16:30 Atenolol 25 mg 25 mg BID GTB Last administered on 02/20/17 09:27; Admin Dose 25 MG; Start 02/15/17 at 21:00 Vancomycin HCl 250 ml @ 125 mls/hr Q24H IVPB Last administered on 02/20/17 12 :51; Admin Dose 125 MLS/HR; Start 02/18/17 at 13:00 Sodium Chloride (NS) 1,000 ml @ 70 mls/hr [id number] IV Last administered on 02/20 02:16; Admin Dose 70 MLS/HR; Start 02/17/17 at 17:30 Fluconazole (Diflucan) 100 mg DAILY PO ; Start 02/21/17 at 09:00 INOCENCIA FOY NP Feb 20, 2017 13:46
--- NOTE | 2017-02-20 15:32 | RADRPT ---
PROCEDURE: XR Chest. CLINICAL INDICATION: Pneumonia TECHNIQUE: AP view of the chest were obtained. 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 Stable tracheostomy tube. No evidence of pleural effusion or pneumothorax. Mild pulmonary vascular congestion. Surgical ranjeet are noted along the lateral aspect of the right mid lung field. IMPRESSION: No definitive radiographic evidence of pneumonia. Mild pulmonary vascular congestion. Stable tracheostomy tube. 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 RPTAT: GG .Brice Salazar MD, MD Date Time Electronically viewed and signed by .Brice Salazar MD, on 02/20/2017 15:32 .G/
[2017-02-20] MEDS: HYDROCODONE/APAP (5/325) TAB GTB PRN (21:37)
[2017-02-21] VITALS (12 sets, daily range): BP systolic 117–173; BP diastolic 54–67; PULSE 60–72; RESP 16–20
[2017-02-21 06:12] LABS: ABNORMAL IP MESSAGE 1; BASOPHIL # 0.1 10^3/ul (0.0-0.1); BASOPHILS % 0.8 % (0.0-2.0); EOSINOPHILS # 0.5 10^3/ul (0.0-0.5); EOSINOPHILS % 7.8 % (0.0-7.0); HEMATOCRIT 30.6 % (37.0-47.0); HEMOGLOBIN 9.9 g/dl (12.0-16.0); LYMPHOCYTES # 1.5 10^3/ul (0.8-2.9); LYMPHOCYTES % 22.4 % (15.0-51.0); MEAN CORPUSCULAR HEMOGLOBIN 30.5 pg (29.0-33.0); MEAN CORPUSCULAR HGB CONC 32.4 g/dl (32.0-37.0); MEAN CORPUSCULAR VOLUME 94.2 fl (82.0-101.0); MEAN PLATELET VOLUME 8.6 fl (7.4-10.4); MONOCYTE # 0.7 10^3/ul (0.3-0.9); MONOCYTES % 10.2 % (0.0-11.0); NEUTROPHIL # 3.4 10^3/ul (1.6-7.5); NEUTROPHILS % 51.6 % (39.0-77.0); PLATELET COUNT 351 10^3/UL (140-415); RED BLOOD COUNT 3.25 10^6/ul (4.20-5.40); RED CELL DISTRIBUTION WIDTH 16.7 % (11.5-14.5); WHITE BLOOD COUNT 6.6 10^3/ul (4.8-10.8)
[2017-02-21] MEDS: LANSOPRAZOLE 30 MG CAP GTB SCH (06:54)
[2017-02-21] MEDS: LEVOTHYROXINE 50 MCG TAB GTB SCH (06:54)
[2017-02-21] MEDS: SOD CHLORIDE 0.9% 1,000 ML IV SCH ×2 (06:55→21:36)
[2017-02-21 06:58] LABS: CALCIUM 9.1 mg/dl (8.4-10.2); CREATININE 0.82 mg/dl (0.44-1.00)
[2017-02-21 07:14] LABS: POSITIVE DIFF @See below
[2017-02-21] MEDS: ALBUTEROL 0.083% (NEB) 2.5 MG/3 ML AMP HHN SCH ×3 (08:15→23:30)
[2017-02-21] MEDS: MICONAZOLE 2% 30 GM CR TOP SCH ×2 (09:00→21:00)
[2017-02-21] MEDS: CHLORHEXIDINE GLUCONATE 15 ML UD CUP MT SCH ×2 (09:07→21:11)
[2017-02-21] MEDS: FERROUS SULFATE 60 MG/ML 5ML CUP GTB SCH (09:07)
[2017-02-21] MEDS: SERTRALINE 50 MG TAB PO SCH (09:09)
[2017-02-21] MEDS: ATENOLOL 25 MG TAB GTB SCH ×2 (09:10→21:10)
[2017-02-21] MEDS: SENNA TAB PO SCH ×2 (09:11→21:10)
[2017-02-21] MEDS: DOCUSATE SODIUM 10 MG/ML (10ML CUP) GTB SCH ×2 (09:13→21:10)
[2017-02-21] MEDS: HEPARIN 5,000 UNIT/0.5 ML VIAL SC SCH ×2 (09:20→21:12)
[2017-02-21] MEDS: NYSTATIN 30 GM POWDER BTL TOP SCH ×2 (09:20→21:00)
[2017-02-21] MEDS: FLUCONAZOLE 100 MG TAB PO SCH (09:20)
[2017-02-21] MEDS: ACETAMINOPHEN 650MG/20.3ML CUP GTB PRN (11:28)
--- NOTE | 2017-02-21 12:18 | CONS ---
Date/Time of Note Date/Time of Note DATE: 02/21/17 TIME: 12:17 Assessment/Plan Assessment/Plan Chief Complaint/Hosp Course SUBJECTIVE DATA: No events overnight. Patient is awake, denies pain, looks comfortable. No fevers, no n/v/d. DIAGNOSTICS: Chest x-ray on February 14 showed chronic scarring at both lung apices. ANTIMICROBIALS: Diflucan PHYSICAL EXAMINATION: GENERAL: Well-developed, fragile, elderly woman, in no distress. HEENT: Head atraumatic, normocephalic. Sclerae anicteric. Buccal mucosa dry. NECK: Supple. CHEST: Rise symmetrical. Breath sounds diminished at the bases. HEART: S1, S2. ABDOMEN: Soft, bowel sounds present. EXTREMITIES: Without cyanosis. ASSESSMENT: 1. Bacteremia, c/w contaminant 2. [id number] respiratory failure, status post shortness of breath. 3. Dysphagia. 4. History of thyroid cancer, status post radiation. 5. History of breast cancer, status post bilateral mastectomies. 6. Anemia. 7. C albicans UTI PLAN: Patient remains stable, repeat bld cx negative, continue present care, Nilesh WYATT pt/staff Problems: Consultation Date/Type/Reason Admit Date/Time Feb 14, 2017 at 13:20 Type of Consultation: ID Exam/Review of Systems Vital Signs Vitals Vital Signs Date Time Temp Pulse Resp B/P Pulse Ox O2 Delivery O2 Flow Rate FiO2 02/21/17 12:02 98.3 64 18 117/54 97 02/21/17 08:18 3.0 02/21/17 08:18 Nasal Cannula Intake and Output 02/20/17 02/20/17 02/21/17 15:00 23:00 07:00 Intake Total 1760 ml 2270 ml Output Total 600 ml Balance 1160 ml 2270 ml Results Result Diagram: 02/21/17 0543 02/21/17 0543 Results 24 hrs Laboratory Tests Test 02/21/17 05:43 White Blood Count 6.6 Red Blood Count 3.25 L Hemoglobin 9.9 L Hematocrit 30.6 L Mean Corpuscular Volume 94.2 Mean Corpuscular Hemoglobin 30.5 Mean Corpuscular Hemoglobin Concent 32.4 Red Cell Distribution Width 16.7 H Platelet Count 351 Mean Platelet Volume 8.6 Neutrophils % 51.6 Lymphocytes % 22.4 Monocytes % 10.2 Eosinophils % 7.8 H Basophils % 0.8 Nucleated Red Blood Cells % 0.0 Neutrophils # 3.4 Lymphocytes # 1.5 Monocytes # 0.7 Eosinophils # 0.5 Basophils # 0.1 Nucleated Red Blood Cells # 0.0 Sodium Level 139 Potassium Level 5.0 Chloride Level 103 Carbon Dioxide Level 32 H Anion Gap 9 Blood Urea Nitrogen 19 Creatinine 0.82 Glucose Level 89 Calcium Level 9.1 Medications Medications Current Medications Acetaminophen (Tylenol Liquid) 650 mg Q4H PRN GTB PAIN AND OR ELEVATED TEMP Last administered on 02/21/17 11:28; Admin Dose 650 MG; Start 02/14/17 at 16:30 Chlorhexidine Gluconate (Peridex) 15 ml BID MT Last administered on 02/21/17 09:07; Admin Dose 15 ML; Start 02/14/17 at 21:00 Ferrous Sulfate (Feosol Liquid Cup) 300 mg DAILY GTB Last administered on 09:07; Admin Dose 300 MG; Start 02/15/17 at 09:00 Heparin Sodium (Porcine) (Heparin (5000 Units/0.5 ml)) 5,000 unit BID SC Last administered on 02/21/17 09:20; Admin Dose 5,000 UNIT; Start 02/14/17 at 21:00 Acetaminophen/ Hydrocodone Bitart ([place] (5/325)) 1 tab Q8 PRN GTB PAIN LEVEL 7 -10 Last administered on 02/20/17 21:37; Admin Dose 1 TAB; Start 02/14/17 at 16 :30 Lactulose (Enulose) 20 gm DAILY PRN PO CONSTIPATION; Start 02/14/17 at 16:30 Lansoprazole (Prevacid) 30 mg DAILY@06 GTB Last administered on 02/21/17 06:54 ; Admin Dose 30 MG; Start 02/15/17 at 06:00 Levothyroxine Sodium (Synthroid) 50 mcg DAILY@06 GTB Last administered on 06:54; Admin Dose 50 MCG; Start 02/15/17 at 06:00 Lorazepam (Ativan) 0.5 mg Q6H PRN PO ANXIETY Last administered on 02/14/17 17: 43; Admin Dose 0.5 MG; Start 02/14/17 at 16:30 Miconazole Nitrate (Miconazole 2% Cr) 1 applic BID TOP Last administered on 09:00; Admin Dose 1 APPLIC; Start 02/14/17 at 21:00 Nystatin (Nystatin Powder) 1 applic BID TOP Last administered on 02/21/17 09: 20; Admin Dose 1 APPLIC; Start 02/14/17 at 21:00 Senna (Senokot) 1 tab BID PO Last administered on 02/21/17 09:11; Admin Dose 1 TAB; Start 02/14/17 at 21:00 Sertraline HCl (Zoloft) 25 mg DAILY PO Last administered on 02/21/17 09:09; Admin Dose 25 MG; Start 02/15/17 at 09:00 Zolpidem Tartrate (Ambien) 5 mg HS PRN PO INSOMNIA; Start 02/14/17 at 16:30 Atenolol 25 mg 25 mg BID GTB Last administered on 02/21/17 09:10; Admin Dose 25 MG; Start 02/15/17 at 21:00 Sodium Chloride (NS) 1,000 ml @ 70 mls/hr [id number] IV Last administered on 02/21 06:55; Admin Dose 70 MLS/HR; Start 02/17/17 at 17:30 Fluconazole (Diflucan) 100 mg DAILY PO Last administered on 02/21/17 09:20; Admin Dose 100 MG; Start 02/21/17 at 09:00 Docusate Sodium (Colace Liquid Cup) 100 mg BID GTB Last administered on 09:13; Admin Dose 100 MG; Start 02/21/17 at 09:00 INOCENCIA FOY NP Feb 21, 2017 12:18
--- NOTE | 2017-02-21 18:45 | PN ---
Date/Time of Note Date/Time of Note DATE: 02/21/17 TIME: 18:43 Assessment/Plan VTE Prophylaxis VTE Prophylaxis Intervention: SCD's Lines/Catheters [facility] Peripheral IV Urinary Cath still in place: No Assessment/Plan Chief Complaint/Hosp Course Patient denies any shortness of breath, and tracheostomy care and supplemental oxygen Assessment/Plan - Gram-positive cocci bacteremia, f/up on cx, abx per ID. Dr Iqbal is following in infection disease consultation - Acute respiratory insufficiency with shortness of breath. Continue tracheostomy care, breathing treatment. - Rule out acute coronary syndrome. Cardiac enzymes are negative 3 - Dysphagia with PEG. Resume patient's age G-tube feeding. - Hypertension, the patient is currently normotensive. - History of thyroid cancer, status post-radiation. Continue Synthroid. - Depression. - History of breast cancer. Status post-bilateral mastectomy. - Anemia. Continue iron supplements. - Protein calorie malnutrition Further recommendations based on clinical course. Plan of care discussed with Dr. Root. Problems: Exam/Review of Systems Vital Signs Vitals Vital Signs Date Time Temp Pulse Resp B/P Pulse Ox O2 Delivery O2 Flow Rate FiO2 02/21/17 16:41 64 02/21/17 16:23 22 97 Nasal Cannula 3.0 02/21/17 15:35 98.0 123/57 Intake and Output 02/20/17 02/20/17 02/21/17 15:00 23:00 07:00 Intake Total 1760 ml 2270 ml Output Total 600 ml Balance 1160 ml 2270 ml Exam Constitutional: alert, oriented Head: normocephalic Neck: other (trach) Respiratory: diminished breath sounds Cardiovascular: nl pulses Gastrointestinal: non-tender, other (G-tube), soft Extremities: normal pulses Results Result Diagram: 02/21/17 0543 02/21/17 0543 Results 24 hrs Laboratory Tests Test 02/21/17 05:43 White Blood Count 6.6 Red Blood Count 3.25 L Hemoglobin 9.9 L Hematocrit 30.6 L Mean Corpuscular Volume 94.2 Mean Corpuscular Hemoglobin 30.5 Mean Corpuscular Hemoglobin Concent 32.4 Red Cell Distribution Width 16.7 H Platelet Count 351 Mean Platelet Volume 8.6 Neutrophils % 51.6 Lymphocytes % 22.4 Monocytes % 10.2 Eosinophils % 7.8 H Basophils % 0.8 Nucleated Red Blood Cells % 0.0 Neutrophils # 3.4 Lymphocytes # 1.5 Monocytes # 0.7 Eosinophils # 0.5 Basophils # 0.1 Nucleated Red Blood Cells # 0.0 Sodium Level 139 Potassium Level 5.0 Chloride Level 103 Carbon Dioxide Level 32 H Anion Gap 9 Blood Urea Nitrogen 19 Creatinine 0.82 Glucose Level 89 Calcium Level 9.1 Medications Medications Current Medications Acetaminophen (Tylenol Liquid) 650 mg Q4H PRN GTB PAIN AND OR ELEVATED TEMP Last administered on 02/21/17 11:28; Admin Dose 650 MG; Start 02/14/17 at 16:30 Chlorhexidine Gluconate (Peridex) 15 ml BID MT Last administered on 02/21/17 09:07; Admin Dose 15 ML; Start 02/14/17 at 21:00 Ferrous Sulfate (Feosol Liquid Cup) 300 mg DAILY GTB Last administered on 09:07; Admin Dose 300 MG; Start 02/15/17 at 09:00 Heparin Sodium (Porcine) (Heparin (5000 Units/0.5 ml)) 5,000 unit BID SC Last administered on 02/21/17 09:20; Admin Dose 5,000 UNIT; Start 02/14/17 at 21:00 Acetaminophen/ Hydrocodone Bitart ([place] (5/325)) 1 tab Q8 PRN GTB PAIN LEVEL 7 -10 Last administered on 02/20/17 21:37; Admin Dose 1 TAB; Start 02/14/17 at 16 :30 Lactulose (Enulose) 20 gm DAILY PRN PO CONSTIPATION; Start 02/14/17 at 16:30 Lansoprazole (Prevacid) 30 mg DAILY@06 GTB Last administered on 02/21/17 06:54 ; Admin Dose 30 MG; Start 02/15/17 at 06:00 Levothyroxine Sodium (Synthroid) 50 mcg DAILY@06 GTB Last administered on 06:54; Admin Dose 50 MCG; Start 02/15/17 at 06:00 Lorazepam (Ativan) 0.5 mg Q6H PRN PO ANXIETY Last administered on 02/14/17 17: 43; Admin Dose 0.5 MG; Start 02/14/17 at 16:30 Miconazole Nitrate (Miconazole 2% Cr) 1 applic BID TOP Last administered on 09:00; Admin Dose 1 APPLIC; Start 02/14/17 at 21:00 Nystatin (Nystatin Powder) 1 applic BID TOP Last administered on 02/21/17 09: 20; Admin Dose 1 APPLIC; Start 02/14/17 at 21:00 Senna (Senokot) 1 tab BID PO Last administered on 02/21/17 09:11; Admin Dose 1 TAB; Start 02/14/17 at 21:00 Sertraline HCl (Zoloft) 25 mg DAILY PO Last administered on 02/21/17 09:09; Admin Dose 25 MG; Start 02/15/17 at 09:00 Zolpidem Tartrate (Ambien) 5 mg HS PRN PO INSOMNIA; Start 02/14/17 at 16:30 Atenolol 25 mg 25 mg BID GTB Last administered on 02/21/17 09:10; Admin Dose 25 MG; Start 02/15/17 at 21:00 Sodium Chloride (NS) 1,000 ml @ 70 mls/hr [id number] IV Last administered on 02/21 06:55; Admin Dose 70 MLS/HR; Start 02/17/17 at 17:30 Fluconazole (Diflucan) 100 mg DAILY PO Last administered on 02/21/17 09:20; Admin Dose 100 MG; Start 02/21/17 at 09:00 Docusate Sodium (Colace Liquid Cup) 100 mg BID GTB Last administered on 09:13; Admin Dose 100 MG; Start 02/21/17 at 09:00 CHARY NICOLAS Feb 21, 2017 18:45
[2017-02-22] VITALS (11 sets, daily range): BP systolic 137–166; BP diastolic 61–81; PULSE 63–72; RESP 18–20
[2017-02-22] MEDS: LEVOTHYROXINE 50 MCG TAB GTB SCH (06:00)
[2017-02-22] MEDS: LANSOPRAZOLE 30 MG CAP GTB SCH (06:00)
[2017-02-22 07:20] LABS: ABNORMAL IP MESSAGE 1; HEMATOCRIT 29.4 % (37.0-47.0); HEMOGLOBIN 9.6 g/dl (12.0-16.0); MEAN CORPUSCULAR HEMOGLOBIN 31.3 pg (29.0-33.0); MEAN CORPUSCULAR HGB CONC 32.7 g/dl (32.0-37.0); MEAN CORPUSCULAR VOLUME 95.8 fl (82.0-101.0); MEAN PLATELET VOLUME 8.5 fl (7.4-10.4); PLATELET COUNT 331 10^3/UL (140-415); RED BLOOD COUNT 3.07 10^6/ul (4.20-5.40); RED CELL DISTRIBUTION WIDTH 16.2 % (11.5-14.5); WHITE BLOOD COUNT 6.9 10^3/ul (4.8-10.8)
[2017-02-22 07:24] LABS: POSITIVE DIFF @See below
[2017-02-22 07:36] LABS: CALCIUM 9.2 mg/dl (8.4-10.2); CREATININE 0.76 mg/dl (0.44-1.00); POTASSIUM 4.4 mmol/L (3.5-5.1)
[2017-02-22 08:19] LABS: ANISOCYTOSIS 1+ (0-0); EOSINOPHILS % (M) 5 % (0-7); GIANT THROMBO% (M) 1 % (0-0); METAMYELOCYTES %M 1 % (0-0); MONOCYTES % (M) 7 % (0-11); MYELOCYTES % (M) 2 % (0-0); OVALOCYTES 1+ (0-0); PLATELET ESTIMATE NORMAL; POIKILOCYTOSIS 1+ (0-0); POLYCHROMASIA 1+ (0-0); REACTIVE LYMPHOCYTES% (M) 1 % (0-0)
[2017-02-22] MEDS: ALBUTEROL 0.083% (NEB) 2.5 MG/3 ML AMP HHN SCH ×2 (08:49→15:51)
[2017-02-22] MEDS: SERTRALINE 50 MG TAB PO SCH (09:30)
[2017-02-22] MEDS: FLUCONAZOLE 100 MG TAB PO SCH (09:30)
[2017-02-22] MEDS: ATENOLOL 25 MG TAB GTB SCH ×2 (09:30→21:32)
[2017-02-22] MEDS: FERROUS SULFATE 60 MG/ML 5ML CUP GTB SCH (09:30)
[2017-02-22] MEDS: CHLORHEXIDINE GLUCONATE 15 ML UD CUP MT SCH ×2 (09:30→21:32)
[2017-02-22] MEDS: SENNA TAB PO SCH ×2 (09:30→21:32)
[2017-02-22] MEDS: DOCUSATE SODIUM 10 MG/ML (10ML CUP) GTB SCH ×2 (09:30→21:32)
[2017-02-22] MEDS: HEPARIN 5,000 UNIT/0.5 ML VIAL SC SCH ×2 (09:32→21:34)
[2017-02-22] MEDS: NYSTATIN 30 GM POWDER BTL TOP SCH ×2 (09:33→21:00)
[2017-02-22] MEDS: MICONAZOLE 2% 30 GM CR TOP SCH ×2 (09:35→21:00)
--- NOTE | 2017-02-22 10:12 | PN ---
Date/Time of Note Date/Time of Note DATE: 02/22/17 TIME: 10:04 Assessment/Plan VTE Prophylaxis VTE Prophylaxis Intervention: other Lines/Catheters [facility] Peripheral IV Urinary Cath still in place: No Assessment/Plan Assessment/Plan - Gram-positive cocci bacteremia, f/up on cx, abx per ID. Dr Iqbal is following in infection disease consultation - Acute respiratory insufficiency with shortness of breath. Continue tracheostomy care, breathing treatment. - Rule out acute coronary syndrome. Cardiac enzymes are negative 3 - Dysphagia with PEG. Resume patient's age G-tube feeding. - Hypertension, the patient is currently normotensive. - History of thyroid cancer, status post-radiation. Continue Synthroid. - Depression. - History of breast cancer. Status post-bilateral mastectomy. - Anemia. Continue iron supplements. - Protein calorie malnutrition Further recommendations based on clinical course. Plan of care discussed with Dr. Root. Subjective 24 Hr Interval Summary Free Text/Dictation remains on trach, afebrile, no new events reported overnight. Respiratory: no complaints Cardiovascular: no complaints Gastrointestinal: no complaints Genitourinary: no complaints Musculoskeletal: no complaints Exam/Review of Systems Vital Signs Vitals Vital Signs Date Time Temp Pulse Resp B/P Pulse Ox O2 Delivery O2 Flow Rate FiO2 02/22/17 08:50 95 3.0 02/22/17 08:12 68 02/22/17 08:06 98.3 19 159/68 02/21/17 16:23 Nasal Cannula Intake and Output 02/21/17 02/21/17 02/22/17 15:00 23:00 07:00 Intake Total 2090 ml Balance 2090 ml Exam Constitutional: alert, oriented, well developed Psych: nl mood/affect Neck: other (trach intact), supple Respiratory: clear to auscultation, diminished breath sounds Cardiovascular: nl pulses, regular rate and rhythm Gastrointestinal: non-tender, soft Musculoskeletal: muscle weakness Extremities: normal pulses Neurological: nl mental status Results Result Diagram: 02/22/17 0708 02/22/17 0708 Results 24 hrs Laboratory Tests Test 02/22/17 05:37 02/22/17 07:08 Lab Scanned Report BLOOD TRANSFUSION White Blood Count 6.9 Red Blood Count 3.07 L Hemoglobin 9.6 L Hematocrit 29.4 L Mean Corpuscular Volume 95.8 Mean Corpuscular Hemoglobin 31.3 Mean Corpuscular Hemoglobin Concent 32.7 Red Cell Distribution Width 16.2 H Platelet Count 331 Mean Platelet Volume 8.5 Neutrophils % Segmented Neutrophils % (Manual) 68 Band Neutrophils % (Manual) 2 Lymphocytes % Lymphocytes % (Manual) 14 L Reactive Lymphocytes % (Manual) 1 H Monocytes % Monocytes % (Manual) 7 Eosinophils % Eosinophils % (Manual) 5 Basophils % Metamyelocytes % (manual) 1 H Myelocytes % (Manual) 2 H Nucleated Red Blood Cells % 0.0 Neutrophils # Neutrophils # (Manual) 4.7 Band Neutrophils # 0.1 Absolute Lymphocytes (Manual) 0.9 Lymphocytes # Reactive Lymphocytes # 0.0 Monocytes # Absolute Monocytes (Manual) 0.4 Eosinophils # Basophils # Metamyelocytes # 0.0 Myelocytes # 0.1 H Nucleated Red Blood Cells # Platelet Estimate NORMAL Giant Platelets 1 H Polychromasia 1+ Poikilocytosis 1+ Anisocytosis 1+ Ovalocytes 1+ Sodium Level 136 Potassium Level 4.4 Chloride Level 102 Carbon Dioxide Level 30 Anion Gap 8 Blood Urea Nitrogen 19 Creatinine 0.76 Glucose Level 116 Calcium Level 9.2 Medications Medications Current Medications Acetaminophen (Tylenol Liquid) 650 mg Q4H PRN GTB PAIN AND OR ELEVATED TEMP Last administered on 02/21/17 11:28; Admin Dose 650 MG; Start 02/14/17 at 16:30 Chlorhexidine Gluconate (Peridex) 15 ml BID MT Last administered on 02/22/17 09:30; Admin Dose 15 ML; Start 02/14/17 at 21:00 Ferrous Sulfate (Feosol Liquid Cup) 300 mg DAILY GTB Last administered on 09:30; Admin Dose 300 MG; Start 02/15/17 at 09:00 Heparin Sodium (Porcine) (Heparin (5000 Units/0.5 ml)) 5,000 unit BID SC Last administered on 02/22/17 09:32; Admin Dose 5,000 UNIT; Start 02/14/17 at 21:00 Acetaminophen/ Hydrocodone Bitart ([place] (5/325)) 1 tab Q8 PRN GTB PAIN LEVEL 7 -10 Last administered on 02/20/17 21:37; Admin Dose 1 TAB; Start 02/14/17 at 16 :30 Lactulose (Enulose) 20 gm DAILY PRN PO CONSTIPATION; Start 02/14/17 at 16:30 Lansoprazole (Prevacid) 30 mg DAILY@06 GTB Last administered on 02/22/17 06:00 ; Admin Dose 30 MG; Start 02/15/17 at 06:00 Levothyroxine Sodium (Synthroid) 50 mcg DAILY@06 GTB Last administered on 06:00; Admin Dose 50 MCG; Start 02/15/17 at 06:00 Lorazepam (Ativan) 0.5 mg Q6H PRN PO ANXIETY Last administered on 02/14/17 17: 43; Admin Dose 0.5 MG; Start 02/14/17 at 16:30 Miconazole Nitrate (Miconazole 2% Cr) 1 applic BID TOP Last administered on 09:35; Admin Dose 1 APPLIC; Start 02/14/17 at 21:00 Nystatin (Nystatin Powder) 1 applic BID TOP Last administered on 02/22/17 09: 33; Admin Dose 1 APPLIC; Start 02/14/17 at 21:00 Senna (Senokot) 1 tab BID PO Last administered on 02/22/17 09:30; Admin Dose 1 TAB; Start 02/14/17 at 21:00 Sertraline HCl (Zoloft) 25 mg DAILY PO Last administered on 02/22/17 09:30; Admin Dose 25 MG; Start 02/15/17 at 09:00 Zolpidem Tartrate (Ambien) 5 mg HS PRN PO INSOMNIA; Start 02/14/17 at 16:30 Atenolol 25 mg 25 mg BID GTB Last administered on 02/22/17 09:30; Admin Dose 25 MG; Start 02/15/17 at 21:00 Sodium Chloride (NS) 1,000 ml @ 70 mls/hr [id number] IV Last administered on 02/21 21:36; Admin Dose 70 MLS/HR; Start 02/17/17 at 17:30 Fluconazole (Diflucan) 100 mg DAILY PO Last administered on 02/22/17 09:30; Admin Dose 100 MG; Start 02/21/17 at 09:00 Docusate Sodium (Colace Liquid Cup) 100 mg BID GTB Last administered on 09:30; Admin Dose 100 MG; Start 10/6/17 at 09:00 ROMEO BRIAN Feb 22, 2017 10:12
[2017-02-22] MEDS: SOD CHLORIDE 0.9% 1,000 ML IV SCH ×2 (11:54→16:19)
[2017-02-22] MEDS: ACETAMINOPHEN 650MG/20.3ML CUP GTB PRN (21:32)
[2017-02-23] VITALS (12 sets, daily range): BP systolic 116–164; BP diastolic 52–74; PULSE 63–73; RESP 15–18
[2017-02-23] MEDS: LEVOTHYROXINE 50 MCG TAB GTB SCH (05:24)
[2017-02-23] MEDS: LANSOPRAZOLE 30 MG CAP GTB SCH (05:24)
[2017-02-23] MEDS: ATENOLOL 25 MG TAB GTB SCH ×2 (08:16→21:05)
[2017-02-23] MEDS: DOCUSATE SODIUM 10 MG/ML (10ML CUP) GTB SCH ×2 (08:16→21:00)
[2017-02-23] MEDS: CHLORHEXIDINE GLUCONATE 15 ML UD CUP MT SCH ×2 (08:17→21:05)
[2017-02-23] MEDS: FERROUS SULFATE 60 MG/ML 5ML CUP GTB SCH (08:17)
[2017-02-23] MEDS: SENNA TAB PO SCH ×2 (08:17→21:00)
[2017-02-23] MEDS: SERTRALINE 50 MG TAB PO SCH (08:17)
[2017-02-23] MEDS: FLUCONAZOLE 100 MG TAB PO SCH (08:17)
[2017-02-23 08:21] LABS: BASOPHIL # 0.1 10^3/ul (0.0-0.1); BASOPHILS % 0.8 % (0.0-2.0); EOSINOPHILS # 0.3 10^3/ul (0.0-0.5); EOSINOPHILS % 5.1 % (0.0-7.0); HEMATOCRIT 29.6 % (37.0-47.0); HEMOGLOBIN 9.5 g/dl (12.0-16.0); LYMPHOCYTES # 1.3 10^3/ul (0.8-2.9); LYMPHOCYTES % 21.2 % (15.0-51.0); MEAN CORPUSCULAR HEMOGLOBIN 31.1 pg (29.0-33.0); MEAN CORPUSCULAR HGB CONC 32.1 g/dl (32.0-37.0); MEAN PLATELET VOLUME 8.8 fl (7.4-10.4); MONOCYTE # 0.6 10^3/ul (0.3-0.9); MONOCYTES % 9.9 % (0.0-11.0); NEUTROPHIL # 3.5 10^3/ul (1.6-7.5); NEUTROPHILS % 58.5 % (39.0-77.0); PLATELET COUNT 345 10^3/UL (140-415); RED BLOOD COUNT 3.05 10^6/ul (4.20-5.40); RED CELL DISTRIBUTION WIDTH 15.8 % (11.5-14.5); WHITE BLOOD COUNT 5.9 10^3/ul (4.8-10.8)
[2017-02-23] MEDS: HEPARIN 5,000 UNIT/0.5 ML VIAL SC SCH ×2 (08:23→21:07)
[2017-02-23] MEDS: NYSTATIN 30 GM POWDER BTL TOP SCH ×2 (08:23→21:00)
[2017-02-23] MEDS: MICONAZOLE 2% 30 GM CR TOP SCH ×2 (08:25→21:00)
[2017-02-23] MEDS: ALBUTEROL 0.083% (NEB) 2.5 MG/3 ML AMP HHN SCH ×3 (08:37→16:24)
[2017-02-23 08:51] LABS: CALCIUM 8.8 mg/dl (8.4-10.2); CREATININE 0.73 mg/dl (0.44-1.00); POTASSIUM 4.4 mmol/L (3.5-5.1)
--- NOTE | 2017-02-23 11:04 | PN ---
Date/Time of Note Date/Time of Note DATE: 02/23/17 TIME: 11:03 Assessment/Plan Lines/Catheters IV [facility] Type (from [facility] [place] Urinary Cath still in place: No Assessment/Plan Assessment/Plan - Gram-positive cocci bacteremia, f/up on cx, abx per ID. Dr Iqbal is following in infection disease consultation - Acute respiratory insufficiency with shortness of breath. Continue tracheostomy care, breathing treatment. - Rule out acute coronary syndrome. Cardiac enzymes are negative 3 - Dysphagia with PEG. Resume patient's age G-tube feeding. - Hypertension, the patient is currently normotensive. - History of thyroid cancer, status post-radiation. Continue Synthroid. - Depression. - History of breast cancer. Status post-bilateral mastectomy. - Anemia. Continue iron supplements. - Protein calorie malnutrition Further recommendations based on clinical course. Plan of care discussed with Dr. Root. Subjective 24 Hr Interval Summary Constitutional: requiring O2 Cardiovascular: no complaints Gastrointestinal: no complaints Genitourinary: no complaints Musculoskeletal: no complaints Exam/Review of Systems Vital Signs Vitals Vital Signs Date Time Temp Pulse Resp B/P Pulse Ox O2 Delivery O2 Flow Rate FiO2 02/23/17 09:00 Nasal Cannula 3.0 02/23/17 08:52 60 18 97 02/23/17 08:19 98.0 164/74 Intake and Output 02/22/17 02/22/17 02/23/17 15:00 23:00 07:00 Intake Total 1740 ml 1250 ml Balance 1740 ml 1250 ml Exam Constitutional: alert, well developed Cardiovascular: nl pulses, regular rate and rhythm Gastrointestinal: non-tender, soft Musculoskeletal: nl extremities to inspection Neurological: nl mental status, nl speech Results Result Diagram: 02/23/17 0733 02/23/17732 Results 24 hrs Laboratory Tests Test 02/23/17 07:33 White Blood Count 5.9 Red Blood Count 3.05 L Hemoglobin 9.5 L Hematocrit 29.6 L Mean Corpuscular Volume 97.0 Mean Corpuscular Hemoglobin 31.1 Mean Corpuscular Hemoglobin Concent 32.1 Red Cell Distribution Width 15.8 H Platelet Count 345 Mean Platelet Volume 8.8 Neutrophils % 58.5 Lymphocytes % 21.2 Monocytes % 9.9 Eosinophils % 5.1 Basophils % 0.8 Nucleated Red Blood Cells % 0.0 Neutrophils # 3.5 Lymphocytes # 1.3 Monocytes # 0.6 Eosinophils # 0.3 Basophils # 0.1 Nucleated Red Blood Cells # 0.0 Sodium Level 138 Potassium Level 4.4 Chloride Level 103 Carbon Dioxide Level 31 Anion Gap 8 Blood Urea Nitrogen 20 Creatinine 0.73 Glucose Level 105 Calcium Level 8.8 Medications Medications Current Medications Acetaminophen (Tylenol Liquid) 650 mg Q4H PRN GTB PAIN AND OR ELEVATED TEMP Last administered on 02/22/17 21:32; Admin Dose 650 MG; Start 02/14/17 at 16:30 Chlorhexidine Gluconate (Peridex) 15 ml BID MT Last administered on 02/23/17 08:17; Admin Dose 15 ML; Start 02/14/17 at 21:00 Ferrous Sulfate (Feosol Liquid Cup) 300 mg DAILY GTB Last administered on 08:17; Admin Dose 300 MG; Start 02/15/17 at 09:00 Heparin Sodium (Porcine) (Heparin (5000 Units/0.5 ml)) 5,000 unit BID SC Last administered on 02/23/17 08:23; Admin Dose 5,000 UNIT; Start 02/14/17 at 21:00 Acetaminophen/ Hydrocodone Bitart ([place] (5/325)) 1 tab Q8 PRN GTB PAIN LEVEL 7 -10 Last administered on 02/20/17 21:37; Admin Dose 1 TAB; Start 02/14/17 at 16 :30 Lactulose (Enulose) 20 gm DAILY PRN PO CONSTIPATION; Start 02/14/17 at 16:30 Lansoprazole (Prevacid) 30 mg DAILY@06 GTB Last administered on 02/23/17 05:24 ; Admin Dose 30 MG; Start 02/15/17 at 06:00 Levothyroxine Sodium (Synthroid) 50 mcg DAILY@06 GTB Last administered on 05:24; Admin Dose 50 MCG; Start 02/15/17 at 06:00 Lorazepam (Ativan) 0.5 mg Q6H PRN PO ANXIETY Last administered on 02/14/17 17: 43; Admin Dose 0.5 MG; Start 02/14/17 at 16:30 Miconazole Nitrate (Miconazole 2% Cr) 1 applic BID TOP Last administered on 08:25; Admin Dose 1 APPLIC; Start 02/14/17 at 21:00 Nystatin (Nystatin Powder) 1 applic BID TOP Last administered on 02/23/17 08: 23; Admin Dose 1 APPLIC; Start 02/14/17 at 21:00 Senna (Senokot) 1 tab BID PO Last administered on 02/23/17 08:17; Admin Dose 1 TAB; Start 02/14/17 at 21:00 Sertraline HCl (Zoloft) 25 mg DAILY PO Last administered on 02/23/17 08:17; Admin Dose 25 MG; Start 02/15/17 at 09:00 Zolpidem Tartrate (Ambien) 5 mg HS PRN PO INSOMNIA; Start 02/14/17 at 16:30 Atenolol (Tenormin) 25 mg BID GTB Last administered on 02/23/17 08:16; Admin Dose 25 MG; Start 02/15/17 at 21:00 Fluconazole (Diflucan) 100 mg DAILY PO Last administered on 02/23/17 08:17; Admin Dose 100 MG; Start 02/21/17 at 09:00 Docusate Sodium (Colace Liquid Cup) 100 mg BID GTB Last administered on 08:16; Admin Dose 100 MG; Start 02/21/17 at 09:00 ROMEO BRIAN Feb 23, 2017 11:04
[2017-02-23 12:26] LABS: BASOPHIL # 0.1 10^3/ul (0.0-0.1); BASOPHILS % 0.7 % (0.0-2.0); EOSINOPHILS # 0.3 10^3/ul (0.0-0.5); EOSINOPHILS % 4.2 % (0.0-7.0); HEMATOCRIT 29.8 % (37.0-47.0); HEMOGLOBIN 9.3 g/dl (12.0-16.0); LYMPHOCYTES # 1.5 10^3/ul (0.8-2.9); LYMPHOCYTES % 21.5 % (15.0-51.0); MEAN CORPUSCULAR HEMOGLOBIN 29.8 pg (29.0-33.0); MEAN CORPUSCULAR HGB CONC 31.2 g/dl (32.0-37.0); MEAN CORPUSCULAR VOLUME 95.5 fl (82.0-101.0); MEAN PLATELET VOLUME 8.6 fl (7.4-10.4); MONOCYTE # 0.7 10^3/ul (0.3-0.9); MONOCYTES % 9.1 % (0.0-11.0); NEUTROPHIL # 4.4 10^3/ul (1.6-7.5); NEUTROPHILS % 60.7 % (39.0-77.0); PLATELET COUNT 356 10^3/UL (140-415); RED BLOOD COUNT 3.12 10^6/ul (4.20-5.40); RED CELL DISTRIBUTION WIDTH 15.9 % (11.5-14.5); WHITE BLOOD COUNT 7.2 10^3/ul (4.8-10.8)
--- NOTE | 2017-02-23 15:33 | CONS ---
Date/Time of Note Date/Time of Note DATE: 02/23/17 TIME: 15:32 Assessment/Plan Assessment/Plan Chief Complaint/Hosp Course Alert, feels good, denies pain Temperature 98 pulse 68 respirations 18 blood pressure 125/63 saturation 99 on nasal cannula WBC 7.2 platelets 356, no shift BUN 20 creatinine 0.73 ANTIMICROBIALS: Diflucan PHYSICAL EXAMINATION: GENERAL: Well-developed, fragile, elderly woman, in no distress. HEENT: Head atraumatic, normocephalic. Sclerae anicteric. Buccal mucosa dry. NECK: Supple. CHEST: Rise symmetrical. Breath sounds diminished at the bases. HEART: S1, S2. ABDOMEN: Soft, bowel sounds present. EXTREMITIES: Without cyanosis. ASSESSMENT: 1. Bacteremia, c/w contaminant 2. [id number] respiratory failure, status post shortness of breath. 3. Dysphagia. 4. History of thyroid cancer, status post radiation. 5. History of breast cancer, status post bilateral mastectomies. 6. Anemia. 7. C albicans UTI PLAN: Patient remains stable, repeat bld cx negative, continue present care DW pt/staff Problems: Consultation Date/Type/Reason Admit Date/Time Feb 14, 2017 at 13:20 Type of Consultation: ID Exam/Review of Systems Vital Signs Vitals Vital Signs Date Time Temp Pulse Resp B/P Pulse Ox O2 Delivery O2 Flow Rate FiO2 02/23/17 12:13 98.0 68 18 125/63 99 02/23/17 09:00 Nasal Cannula 3.0 Intake and Output 02/22/17 02/22/17 02/23/17 15:00 23:00 07:00 Intake Total 1740 ml 1250 ml Balance 1740 ml 1250 ml Results Result Diagram: 02/23/17 1155 02/23/17 0733 Results 24 hrs Laboratory Tests Test 02/23/17 07:33 02/23/17 11:55 White Blood Count 5.9 7.2 # Red Blood Count 3.05 L 3.12 L Hemoglobin 9.5 L 9.3 L Hematocrit 29.6 L 29.8 L Mean Corpuscular Volume 97.0 95.5 Mean Corpuscular Hemoglobin 31.1 29.8 Mean Corpuscular Hemoglobin Concent 32.1 31.2 L Red Cell Distribution Width 15.8 H 15.9 H Platelet Count 345 356 Mean Platelet Volume 8.8 8.6 Neutrophils % 58.5 60.7 Lymphocytes % 21.2 21.5 Monocytes % 9.9 9.1 Eosinophils % 5.1 4.2 Basophils % 0.8 0.7 Nucleated Red Blood Cells % 0.0 0.0 Neutrophils # 3.5 4.4 Lymphocytes # 1.3 1.5 Monocytes # 0.6 0.7 Eosinophils # 0.3 0.3 Basophils # 0.1 0.1 Nucleated Red Blood Cells # 0.0 0.0 Sodium Level 138 Potassium Level 4.4 Chloride Level 103 Carbon Dioxide Level 31 Anion Gap 8 Blood Urea Nitrogen 20 Creatinine 0.73 Glucose Level 105 Calcium Level 8.8 Medications Medications Current Medications Acetaminophen (Tylenol Liquid) 650 mg Q4H PRN GTB PAIN AND OR ELEVATED TEMP Last administered on 02/22/17 21:32; Admin Dose 650 MG; Start 02/14/17 at 16:30 Chlorhexidine Gluconate (Peridex) 15 ml BID MT Last administered on 02/23/17 08:17; Admin Dose 15 ML; Start 02/14/17 at 21:00 Ferrous Sulfate (Feosol Liquid Cup) 300 mg DAILY GTB Last administered on 08:17; Admin Dose 300 MG; Start 02/15/17 at 09:00 Heparin Sodium (Porcine) (Heparin (5000 Units/0.5 ml)) 5,000 unit BID SC Last administered on 02/23/17 08:23; Admin Dose 5,000 UNIT; Start 02/14/17 at 21:00 Acetaminophen/ Hydrocodone Bitart ([place] (5/325)) 1 tab Q8 PRN GTB PAIN LEVEL 7 -10 Last administered on 02/20/17 21:37; Admin Dose 1 TAB; Start 02/14/17 at 16 :30 Lactulose (Enulose) 20 gm DAILY PRN PO CONSTIPATION; Start 02/14/17 at 16:30 Lansoprazole (Prevacid) 30 mg DAILY@06 GTB Last administered on 02/23/17 05:24 ; Admin Dose 30 MG; Start 02/15/17 at 06:00 Levothyroxine Sodium (Synthroid) 50 mcg DAILY@06 GTB Last administered on 05:24; Admin Dose 50 MCG; Start 02/15/17 at 06:00 Lorazepam (Ativan) 0.5 mg Q6H PRN PO ANXIETY Last administered on 02/14/17 17: 43; Admin Dose 0.5 MG; Start 02/14/17 at 16:30 Miconazole Nitrate (Miconazole 2% Cr) 1 applic BID TOP Last administered on 08:25; Admin Dose 1 APPLIC; Start 02/14/17 at 21:00 Nystatin (Nystatin Powder) 1 applic BID TOP Last administered on 02/23/17 08: 23; Admin Dose 1 APPLIC; Start 02/14/17 at 21:00 Senna (Senokot) 1 tab BID PO Last administered on 02/23/17 08:17; Admin Dose 1 TAB; Start 02/14/17 at 21:00 Sertraline HCl (Zoloft) 25 mg DAILY PO Last administered on 02/23/17 08:17; Admin Dose 25 MG; Start 02/15/17 at 09:00 Zolpidem Tartrate (Ambien) 5 mg HS PRN PO INSOMNIA; Start 02/14/17 at 16:30 Atenolol (Tenormin) 25 mg BID GTB Last administered on 02/23/17 08:16; Admin Dose 25 MG; Start 02/15/17 at 21:00 Fluconazole (Diflucan) 100 mg DAILY PO Last administered on 02/23/17 08:17; Admin Dose 100 MG; Start 02/21/17 at 09:00 Docusate Sodium (Colace Liquid Cup) 100 mg BID GTB Last administered on 08:16; Admin Dose 100 MG; Start 02/21/17 at 09:00 INOCENCIA FOY NP Feb 23, 2017 15:33
[2017-02-23] MEDS: HYDROCODONE/APAP (5/325) TAB GTB PRN (16:02)
[2017-02-23] MEDS: ACETAMINOPHEN 650MG/20.3ML CUP GTB PRN (23:28)
[2017-02-24] VITALS (12 sets, daily range): BP systolic 112–131; BP diastolic 54–62; PULSE 64–69; RESP 18
[2017-02-24] MEDS: ALBUTEROL 0.083% (NEB) 2.5 MG/3 ML AMP HHN SCH ×4 (01:27→23:48)
[2017-02-24] MEDS: LEVOTHYROXINE 50 MCG TAB GTB SCH (05:52)
[2017-02-24] MEDS: LANSOPRAZOLE 30 MG CAP GTB SCH (05:52)
[2017-02-24] MEDS: DOCUSATE SODIUM 10 MG/ML (10ML CUP) GTB SCH ×2 (08:24→21:04)
[2017-02-24] MEDS: FERROUS SULFATE 60 MG/ML 5ML CUP GTB SCH (08:24)
[2017-02-24] MEDS: HEPARIN 5,000 UNIT/0.5 ML VIAL SC SCH ×2 (08:25→21:07)
[2017-02-24] MEDS: ATENOLOL 25 MG TAB GTB SCH ×2 (08:25→21:06)
[2017-02-24] MEDS: FLUCONAZOLE 100 MG TAB PO SCH (08:25)
[2017-02-24] MEDS: SENNA TAB PO SCH ×2 (08:25→21:11)
[2017-02-24] MEDS: CHLORHEXIDINE GLUCONATE 15 ML UD CUP MT SCH ×2 (08:25→21:04)
[2017-02-24] MEDS: MICONAZOLE 2% 30 GM CR TOP SCH ×2 (08:26→21:05)
[2017-02-24] MEDS: SERTRALINE 50 MG TAB PO SCH (08:26)
[2017-02-24] MEDS: NYSTATIN 30 GM POWDER BTL TOP SCH ×2 (08:27→21:05)
[2017-02-24 08:35] LABS: CREATININE 0.78 mg/dl (0.44-1.00); POTASSIUM 4.4 mmol/L (3.5-5.1)
[2017-02-24] MEDS: ACETAMINOPHEN 650MG/20.3ML CUP GTB PRN (13:14)
--- NOTE | 2017-02-24 14:31 | CONS ---
Date/Time of Note Date/Time of Note DATE: 02/24/17 TIME: 14:20 Consultation Date/Type/Reason Admit Date/Time Feb 14, 2017 at 13:20 Initial Consult Date Chief Complaint/Hosp Course 77 y/o female being treated for ARF and UTI. Alert, feels good, denies pain. VS: 116/54 HR:66 R:18 so2: 93% T: 98.0 LABS: No CBC today. BUN 23 creatinine 0.78 ANTIMICROBIALS: Diflucan PHYSICAL EXAMINATION: GENERAL: Well-developed, afebrile, fragile, elderly woman, in no distress. HEENT: Head atraumatic, normocephalic. Sclerae anicteric. Buccal mucosa dry. NECK: Supple. CHEST: Rise symmetrical. Breath sounds diminished at the bases. HEART: S1, S2. ABDOMEN: Soft, bowel sounds present. EXTREMITIES: Without cyanosis. ASSESSMENT: 1. Bacteremia, c/w contaminant 2. [id number] respiratory failure, status post shortness of breath. 3. Dysphagia. 4. History of thyroid cancer, status post radiation. 5. History of breast cancer, status post bilateral mastectomies. 6. Anemia. 7. C albicans UTI PLAN: Patient remains stable, repeat bld cx negative. Continue Diflucan IV for couple more days. Monitor labs. Type of Consultation: ID Exam/Review of Systems Vital Signs Vitals Vital Signs Date Time Temp Pulse Resp B/P Pulse Ox O2 Delivery O2 Flow Rate FiO2 02/24/17 12:11 64 02/24/17 11:31 98.0 18 116/54 93 02/24/17 08:30 Nasal Cannula 3.0 Intake and Output 02/23/17 02/23/17 02/24/17 15:00 23:00 07:00 Intake Total 140 ml 1270 ml 1210 ml Balance 140 ml 1270 ml 1210 ml Results Result Diagram: 02/23/17 1155 02/24/17 0727 Results 24 hrs Laboratory Tests Test 02/24/17 07:27 Sodium Level 136 Potassium Level 4.4 Chloride Level 100 Carbon Dioxide Level 30 Anion Gap 10 Blood Urea Nitrogen 23 H Creatinine 0.78 Glucose Level 113 Calcium Level 9.0 Medications Medications Current Medications Acetaminophen (Tylenol Liquid) 650 mg Q4H PRN GTB PAIN AND OR ELEVATED TEMP Last administered on 02/24/17t 13:14; Admin Dose 650 MG; Start 02/14/17 at 16:30 Chlorhexidine Gluconate (Peridex) 15 ml BID MT Last administered on 02/24/17 08:25; Admin Dose 15 ML; Start 02/14/17 at 21:00 Ferrous Sulfate (Feosol Liquid Cup) 300 mg DAILY GTB Last administered on 08:24; Admin Dose 300 MG; Start 02/15/17 at 09:00 Heparin Sodium (Porcine) (Heparin (5000 Units/0.5 ml)) 5,000 unit BID SC Last administered on 02/24/17 08:25; Admin Dose 5,000 UNIT; Start 02/14/17 at 21:00 Acetaminophen/ Hydrocodone Bitart ([place] (5/325)) 1 tab Q8 PRN GTB PAIN LEVEL 7 -10 Last administered on 02/23/17 16:02; Admin Dose 1 TAB; Start 02/14/17 at 16 :30 Lactulose (Enulose) 20 gm DAILY PRN PO CONSTIPATION; Start 02/14/17 at 16:30 Lansoprazole (Prevacid) 30 mg DAILY@06 GTB Last administered on 02/24/17 05:52 ; Admin Dose 30 MG; Start 02/15/17 at 06:00 Levothyroxine Sodium (Synthroid) 50 mcg DAILY@06 GTB Last administered on 05:52; Admin Dose 50 MCG; Start 02/15/17 at 06:00 Lorazepam (Ativan) 0.5 mg Q6H PRN PO ANXIETY Last administered on 02/14/17 17: 43; Admin Dose 0.5 MG; Start 02/14/17 at 16:30 Miconazole Nitrate (Miconazole 2% Cr) 1 applic BID TOP Last administered on 08:26; Admin Dose 1 APPLIC; Start 02/14/17 at 21:00 Nystatin (Nystatin Powder) 1 applic BID TOP Last administered on 02/24/17 08: 27; Admin Dose 1 APPLIC; Start 02/14/17 at 21:00 Senna (Senokot) 1 tab BID PO Last administered on 02/24/17 08:25; Admin Dose 1 TAB; Start 02/14/17 at 21:00 Sertraline HCl (Zoloft) 25 mg DAILY PO Last administered on 02/24/17 08:26; Admin Dose 25 MG; Start 02/15/17 at 09:00 Zolpidem Tartrate (Ambien) 5 mg HS PRN PO INSOMNIA; Start 02/14/17 at 16:30 Atenolol (Tenormin) 25 mg BID GTB Last administered on 02/24/17 08:25; Admin Dose 25 MG; Start 02/15/17 at 21:00 Fluconazole (Diflucan) 100 mg DAILY PO Last administered on 02/24/17 08:25; Admin Dose 100 MG; Start 02/21/17 at 09:00 Docusate Sodium (Colace Liquid Cup) 100 mg BID GTB Last administered on 08:24; Admin Dose 100 MG; Start 02/21/17 at 09:00 KARINA COOLEY Feb 24, 2017 14:31
--- NOTE | 2017-02-24 17:57 | PN ---
Date/Time of Note Date/Time of Note DATE: 02/24/17 TIME: 17:55 Assessment/Plan VTE Prophylaxis VTE Prophylaxis Intervention: SCD's Lines/Catheters [facility] Urinary Cath still in place: No Assessment/Plan Chief Complaint/Hosp Course Patient denies any shortness of breath, continue current tracheostomy care Assessment/Plan - Gram-positive cocci bacteremia, cultures are negative. Dr Iqbal is following in infection disease consultation - Acute respiratory insufficiency with shortness of breath. Continue tracheostomy care, breathing treatment. - Rule out acute coronary syndrome. Cardiac enzymes are negative 3 - Dysphagia with PEG. Continue G-tube feeding. - Hypertension, the patient is currently normotensive. - History of thyroid cancer, status post-radiation. Continue Synthroid. - Depression. - History of breast cancer. Status post-bilateral mastectomy. - Anemia. Continue iron supplements. - Protein calorie malnutrition Further recommendations based on clinical course. Plan of care discussed with Dr. Root. Problems: Exam/Review of Systems Vital Signs Vitals Vital Signs Date Time Temp Pulse Resp B/P Pulse Ox O2 Delivery O2 Flow Rate FiO2 02/24/17 16:37 97.9 70 18 123/60 94 02/24/17 16:07 3.0 02/24/17 16:07 Nasal Cannula Intake and Output 02/23/17 02/23/17 02/24/17 15:00 23:00 07:00 Intake Total 140 ml 1270 ml 1210 ml Balance 140 ml 1270 ml 1210 ml Exam Constitutional: alert, oriented Head: normocephalic Neck: other (trach) Respiratory: diminished breath sounds Cardiovascular: nl pulses Gastrointestinal: non-tender, other (G-tube), soft Extremities: normal pulses Results Result Diagram: 02/23/17 1155 02/24/17 0727 Results 24 hrs Laboratory Tests Test 02/24/17 07:27 Sodium Level 136 Potassium Level 4.4 Chloride Level 100 Carbon Dioxide Level 30 Anion Gap 10 Blood Urea Nitrogen 23 H Creatinine 0.78 Glucose Level 113 Calcium Level 9.0 Medications Medications Current Medications Acetaminophen (Tylenol Liquid) 650 mg Q4H PRN GTB PAIN AND OR ELEVATED TEMP Last administered on 02/24/17t 13:14; Admin Dose 650 MG; Start 02/14/17 at 16:30 Chlorhexidine Gluconate (Peridex) 15 ml BID MT Last administered on 02/24/17 08:25; Admin Dose 15 ML; Start 02/14/17 at 21:00 Ferrous Sulfate (Feosol Liquid Cup) 300 mg DAILY GTB Last administered on 08:24; Admin Dose 300 MG; Start 02/15/17 at 09:00 Heparin Sodium (Porcine) (Heparin (5000 Units/0.5 ml)) 5,000 unit BID SC Last administered on 02/24/17 08:25; Admin Dose 5,000 UNIT; Start 02/14/17 at 21:00 Acetaminophen/ Hydrocodone Bitart ([place] (5/325)) 1 tab Q8 PRN GTB PAIN LEVEL 7 -10 Last administered on 02/23/17 16:02; Admin Dose 1 TAB; Start 02/14/17 at 16 :30 Lactulose (Enulose) 20 gm DAILY PRN PO CONSTIPATION; Start 02/14/17 at 16:30 Lansoprazole (Prevacid) 30 mg DAILY@06 GTB Last administered on 02/24/17 05:52 ; Admin Dose 30 MG; Start 02/15/17 at 06:00 Levothyroxine Sodium (Synthroid) 50 mcg DAILY@06 GTB Last administered on 05:52; Admin Dose 50 MCG; Start 02/15/17 at 06:00 Lorazepam (Ativan) 0.5 mg Q6H PRN PO ANXIETY Last administered on 02/14/17 17: 43; Admin Dose 0.5 MG; Start 02/14/17 at 16:30 Miconazole Nitrate (Miconazole 2% Cr) 1 applic BID TOP Last administered on 08:26; Admin Dose 1 APPLIC; Start 02/14/17 at 21:00 Nystatin (Nystatin Powder) 1 applic BID TOP Last administered on 02/24/17 08: 27; Admin Dose 1 APPLIC; Start 02/14/17 at 21:00 Senna (Senokot) 1 tab BID PO Last administered on 02/24/17 08:25; Admin Dose 1 TAB; Start 02/14/17 at 21:00 Sertraline HCl (Zoloft) 25 mg DAILY PO Last administered on 02/24/17 08:26; Admin Dose 25 MG; Start 02/15/17 at 09:00 Zolpidem Tartrate (Ambien) 5 mg HS PRN PO INSOMNIA; Start 02/14/17 at 16:30 Atenolol (Tenormin) 25 mg BID GTB Last administered on 02/24/17 08:25; Admin Dose 25 MG; Start 02/15/17 at 21:00 Fluconazole (Diflucan) 100 mg DAILY PO Last administered on 02/24/17 08:25; Admin Dose 100 MG; Start 02/21/17 at 09:00 Docusate Sodium (Colace Liquid Cup) 100 mg BID GTB Last administered on 08:24; Admin Dose 100 MG; Start 02/21/17 at 09:00 CHARY NICOLAS Feb 24, 2017 17:57
--- NOTE | 2017-02-24 22:08 | RADRPT ---
PROCEDURE: XR Chest. CLINICAL INDICATION: Shortness of breath. TECHNIQUE: Single frontal view. COMPARISON: 02/20/2017. FINDINGS: The tracheostomy tube is in satisfactory position. Surgical clips are present bilaterally in the [address] wall. The lungs are clear. The heart is enlarged. There is calcification in the aorta consistent with athe rosclerosis. There is no pleural effusion. There is no pneumothorax. IMPRESSION: 1. Tracheostomy tube. 2. Prior bilateral chest wall surgery. 3. Cardiomegaly and atherosclerosis. 4. Clear lungs. RPTAT: QQ .Steven Khalil MD, MD Date Time Electronically viewed and signed by .Steven Khalil MD, MD on 02/24/2017 22:07 .R/
[2017-02-25] VITALS (12 sets, daily range): BP systolic 102–129; BP diastolic 20–63; PULSE 60–65; RESP 18–19
[2017-02-25] MEDS: LANSOPRAZOLE 30 MG CAP GTB SCH (05:57)
[2017-02-25] MEDS: LEVOTHYROXINE 50 MCG TAB GTB SCH (05:57)
[2017-02-25] MEDS: SENNA TAB PO SCH ×2 (09:00→20:41)
[2017-02-25] MEDS: ALBUTEROL 0.083% (NEB) 2.5 MG/3 ML AMP HHN SCH ×2 (09:04→16:39)
[2017-02-25] MEDS: DOCUSATE SODIUM 10 MG/ML (10ML CUP) GTB SCH ×2 (09:13→20:41)
[2017-02-25] MEDS: FLUCONAZOLE 100 MG TAB PO SCH (09:13)
[2017-02-25] MEDS: SERTRALINE 50 MG TAB PO SCH (09:13)
[2017-02-25] MEDS: FERROUS SULFATE 60 MG/ML 5ML CUP GTB SCH (09:14)
[2017-02-25] MEDS: ATENOLOL 25 MG TAB GTB SCH ×2 (09:15→20:40)
[2017-02-25] MEDS: CHLORHEXIDINE GLUCONATE 15 ML UD CUP MT SCH ×2 (09:15→20:41)
[2017-02-25] MEDS: HEPARIN 5,000 UNIT/0.5 ML VIAL SC SCH ×2 (09:20→20:57)
[2017-02-25] MEDS: MICONAZOLE 2% 30 GM CR TOP SCH ×2 (09:22→20:41)
[2017-02-25] MEDS: NYSTATIN 30 GM POWDER BTL TOP SCH ×2 (09:22→20:41)
[2017-02-25 09:36] LABS: BASOPHIL # 0.1 10^3/ul (0.0-0.1); BASOPHILS % 0.8 % (0.0-2.0); EOSINOPHILS # 0.3 10^3/ul (0.0-0.5); EOSINOPHILS % 4.4 % (0.0-7.0); HEMATOCRIT 32.4 % (37.0-47.0); HEMOGLOBIN 10.1 g/dl (12.0-16.0); LYMPHOCYTES # 1.5 10^3/ul (0.8-2.9); LYMPHOCYTES % 22.9 % (15.0-51.0); MEAN CORPUSCULAR HEMOGLOBIN 29.9 pg (29.0-33.0); MEAN CORPUSCULAR HGB CONC 31.2 g/dl (32.0-37.0); MEAN CORPUSCULAR VOLUME 95.9 fl (82.0-101.0); MEAN PLATELET VOLUME 8.9 fl (7.4-10.4); MONOCYTE # 0.7 10^3/ul (0.3-0.9); MONOCYTES % 11.3 % (0.0-11.0); NEUTROPHIL # 3.8 10^3/ul (1.6-7.5); NEUTROPHILS % 58.2 % (39.0-77.0); PLATELET COUNT 348 10^3/UL (140-415); RED BLOOD COUNT 3.38 10^6/ul (4.20-5.40); RED CELL DISTRIBUTION WIDTH 15.6 % (11.5-14.5); WHITE BLOOD COUNT 6.5 10^3/ul (4.8-10.8)
[2017-02-25 09:52] LABS: CALCIUM 9.7 mg/dl (8.4-10.2); CREATININE 0.86 mg/dl (0.44-1.00); POTASSIUM 4.4 mmol/L (3.5-5.1)
--- NOTE | 2017-02-25 14:03 | PN ---
Date/Time of Note Date/Time of Note DATE: 02/25/17 TIME: 14:02 Assessment/Plan VTE Prophylaxis VTE Prophylaxis Intervention: SCD's Lines/Catheters IV C[facility]ter Type (from [facility] Sal[facility] Urinary Cath still in place: No Assessment/Plan Chief Complaint/Hosp Course Patient denies any shortness of breath, continue current tracheostomy care, continue PT, pending [place] eval. Assessment/Plan - Gram-positive cocci bacteremia vs contamination, repeat cultures are negative. Dr Iqabl is following in infection disease consultation - Acute respiratory insufficiency with shortness of breath. Continue tracheostomy care, breathing treatment. - Acute coronary syndrome ruled out. Cardiac enzymes are negative 3 - Dysphagia with PEG. Continue G-tube feeding. - Hypertension, the patient is currently normotensive. - History of thyroid cancer, status post-radiation. Continue Synthroid. - Depression. - History of breast cancer. Status post-bilateral mastectomy. - Anemia. Continue iron supplements. - Protein calorie malnutrition Further recommendations based on clinical course. Plan of care discussed with Dr. Root. Problems: Exam/Review of Systems Vital Signs Vitals Vital Signs Date Time Temp Pulse Resp B/P Pulse Ox O2 Delivery O2 Flow Rate FiO2 02/25/17 11:52 98.0 67 18 106/56 100 02/25/17 09:06 Nasal Cannula 3.0 Intake and Output 02/24/17 02/24/17 02/25/17 15:00 23:00 07:00 Intake Total 1300 ml Balance 1300 ml Exam Constitutional: alert, oriented Head: normocephalic Neck: other (trach) Respiratory: diminished breath sounds Cardiovascular: nl pulses Gastrointestinal: non-tender, other (G-tube), soft Extremities: normal pulses Results Result Diagram: 02/25/17 0856 02/25/17 0856 Results 24 hrs Laboratory Tests Test 02/24/17 20:34 02/25/17 08:56 Bedside Glucose 117 White Blood Count 6.5 Red Blood Count 3.38 L Hemoglobin 10.1 L Hematocrit 32.4 L Mean Corpuscular Volume 95.9 Mean Corpuscular Hemoglobin 29.9 Mean Corpuscular Hemoglobin Concent 31.2 L Red Cell Distribution Width 15.6 H Platelet Count 348 Mean Platelet Volume 8.9 Neutrophils % 58.2 Lymphocytes % 22.9 Monocytes % 11.3 H Eosinophils % 4.4 Basophils % 0.8 Nucleated Red Blood Cells % 0.0 Neutrophils # 3.8 Lymphocytes # 1.5 Monocytes # 0.7 Eosinophils # 0.3 Basophils # 0.1 Nucleated Red Blood Cells # 0.0 Sodium Level 135 Potassium Level 4.4 Chloride Level 99 Carbon Dioxide Level 32 H Anion Gap 8 Blood Urea Nitrogen 29 H Creatinine 0.86 Glucose Level 116 Calcium Level 9.7 Medications Medications Current Medications Acetaminophen (Tylenol Liquid) 650 mg Q4H PRN GTB PAIN AND OR ELEVATED TEMP Last administered on 02/24/17 13:14; Admin Dose 650 MG; Start 02/14/17 at 16:30 Chlorhexidine Gluconate (Peridex) 15 ml BID MT Last administered on 02/25/17 09:15; Admin Dose 15 ML; Start 02/14/17 at 21:00 Ferrous Sulfate (Feosol Liquid Cup) 300 mg DAILY GTB Last administered on 02/25 09:14; Admin Dose 300 MG; Start 02/15/17 at 09:00 Heparin Sodium (Porcine) (Heparin (5000 Units/0.5 ml)) 5,000 unit BID SC Last administered on 02/25/17 09:20; Admin Dose 5,000 UNIT; Start 02/14/17 at 21:00 Acetaminophen/ Hydrocodone Bitart ([place] (5/325)) 1 tab Q8 PRN GTB PAIN LEVEL 7 -10 Last administered on 02/23/17 16:02; Admin Dose 1 TAB; Start 02/14/17 at 16 :30 Lactulose (Enulose) 20 gm DAILY PRN PO CONSTIPATION; Start 02/14/17 at 16:30 Lansoprazole (Prevacid) 30 mg DAILY@06 GTB Last administered on 02/25/17 05: 57; Admin Dose 30 MG; Start 02/15/17 at 06:00 Levothyroxine Sodium (Synthroid) 50 mcg DAILY@06 GTB Last administered on 02/25 05:57; Admin Dose 50 MCG; Start 02/15/17 at 06:00 Lorazepam (Ativan) 0.5 mg Q6H PRN PO ANXIETY Last administered on 02/14/17 17: 43; Admin Dose 0.5 MG; Start 02/14/17 at 16:30 Miconazole Nitrate (Miconazole 2% Cr) 1 applic BID TOP Last administered on 09:22; Admin Dose 1 APPLIC; Start 02/14/17 at 21:00 Nystatin (Nystatin Powder) 1 applic BID TOP Last administered on 02/25/17 09: 22; Admin Dose 1 APPLIC; Start 02/14/17 at 21:00 Senna (Senokot) 1 tab BID PO Last administered on 02/24/17 21:11; Admin Dose 1 TAB; Start 02/14/17 at 21:00 Sertraline HCl (Zoloft) 25 mg DAILY PO Last administered on 02/25/17 09:13; Admin Dose 25 MG; Start 02/15/17 at 09:00 Zolpidem Tartrate (Ambien) 5 mg HS PRN PO INSOMNIA; Start 02/14/17 at 16:30 Atenolol (Tenormin) 25 mg BID GTB Last administered on 02/25/17 09:15; Admin Dose 25 MG; Start 02/15/17 at 21:00 Fluconazole (Diflucan) 100 mg DAILY PO Last administered on 02/25/17 09:13; Admin Dose 100 MG; Start 02/21/17 at 09:00 Docusate Sodium (Colace Liquid Cup) 100 mg BID GTB Last administered on 09:13; Admin Dose 100 MG; Start 02/21/17 at 09:00 CHARY NICOLAS Feb 25, 2017 14:03
[2017-02-25] MEDS: ACETAMINOPHEN 650MG/20.3ML CUP GTB PRN (20:41)
[2017-02-26] VITALS (12 sets, daily range): BP systolic 110–145; BP diastolic 52–63; PULSE 59–71; RESP 16–20
[2017-02-26] MEDS: LEVOTHYROXINE 50 MCG TAB GTB SCH (05:51)
[2017-02-26] MEDS: LANSOPRAZOLE 30 MG CAP GTB SCH (05:51)
[2017-02-26] MEDS: ALBUTEROL 0.083% (NEB) 2.5 MG/3 ML AMP HHN SCH ×3 (08:17→16:34)
[2017-02-26] MEDS: FERROUS SULFATE 60 MG/ML 5ML CUP GTB SCH (08:50)
[2017-02-26] MEDS: ATENOLOL 25 MG TAB GTB SCH ×2 (08:52→21:03)
[2017-02-26] MEDS: FLUCONAZOLE 100 MG TAB PO SCH (08:52)
[2017-02-26] MEDS: HEPARIN 5,000 UNIT/0.5 ML VIAL SC SCH ×2 (08:52→21:29)
[2017-02-26] MEDS: CHLORHEXIDINE GLUCONATE 15 ML UD CUP MT SCH ×2 (08:53→21:02)
[2017-02-26] MEDS: DOCUSATE SODIUM 10 MG/ML (10ML CUP) GTB SCH ×2 (08:53→21:00)
[2017-02-26] MEDS: SENNA TAB PO SCH ×2 (08:53→21:00)
[2017-02-26] MEDS: SERTRALINE 50 MG TAB PO SCH (08:53)
[2017-02-26] MEDS: NYSTATIN 30 GM POWDER BTL TOP SCH ×2 (08:54→21:04)
[2017-02-26] MEDS: MICONAZOLE 2% 30 GM CR TOP SCH ×2 (08:54→21:04)
--- NOTE | 2017-02-26 17:47 | PN ---
Date/Time of Note Date/Time of Note DATE: 02/26/17 TIME: 17:46 Assessment/Plan VTE Prophylaxis VTE Prophylaxis Intervention: SCD's Lines/Catheters IV [facility]ter Type (from [facility] Peripheral IV Urinary Cath still in place: No Assessment/Plan Chief Complaint/Hosp Course Patient denies any shortness of breath, denies chest pain, continue current tracheostomy care, anticipate discharge to intermediate facility, [place] rehab tomorrow Assessment/Plan - Gram-positive cocci bacteremia vs contamination, repeat cultures are negative. Dr Iqbal is following in infection disease consultation - Acute respiratory insufficiency with shortness of breath. Continue tracheostomy care, breathing treatment. - Acute coronary syndrome ruled out. Cardiac enzymes are negative 3 - Dysphagia with PEG. Continue G-tube feeding. - Hypertension, the patient is currently normotensive. - History of thyroid cancer, status post-radiation. Continue Synthroid. - Depression. - History of breast cancer. Status post-bilateral mastectomy. - Anemia. Continue iron supplements. - Protein calorie malnutrition Further recommendations based on clinical course. Plan of care discussed with Dr. Root. Problems: Exam/Review of Systems Vital Signs Vitals Vital Signs Date Time Temp Pulse Resp B/P Pulse Ox O2 Delivery O2 Flow Rate FiO2 02/26/17 16:35 68 20 98 Nasal Cannula 3.0 02/26/17 16:00 98.1 110/52 Intake and Output 02/25/17 02/25/17 02/26/17 15:00 23:00 07:00 Intake Total 1300 ml Balance 1300 ml Exam Constitutional: alert, oriented Head: normocephalic Neck: other (trach) Respiratory: diminished breath sounds Cardiovascular: nl pulses Gastrointestinal: non-tender, other (G-tube), soft Extremities: normal pulses Results Result Diagram: 02/25/1785502/25/1756 Medications Medications Current Medications Acetaminophen (Tylenol Liquid) 650 mg Q4H PRN GTB PAIN AND OR ELEVATED TEMP Last administered on 02/25/17 20:41; Admin Dose 650 MG; Start 02/14/17 at 16: 30 Chlorhexidine Gluconate (Peridex) 15 ml BID MT Last administered on 02/26/17 08:53; Admin Dose 15 ML; Start 02/14/17 at 21:00 Ferrous Sulfate (Feosol Liquid Cup) 300 mg DAILY GTB Last administered on 02/26 08:50; Admin Dose 300 MG; Start 02/15/17 at 09:00 Heparin Sodium (Porcine) (Heparin (5000 Units/0.5 ml)) 5,000 unit BID SC Last administered on 02/26/17 08:52; Admin Dose 5,000 UNIT; Start 02/14/17 at 21:00 Acetaminophen/ Hydrocodone Bitart ([place] (5/325)) 1 tab Q8 PRN GTB PAIN LEVEL 7 -10 Last administered on 02/23/17 16:02; Admin Dose 1 TAB; Start 02/14/17 at 16 :30 Lactulose (Enulose) 20 gm DAILY PRN PO CONSTIPATION; Start 02/14/17 at 16:30 Lansoprazole (Prevacid) 30 mg DAILY@06 GTB Last administered on 02/26/17 05: 51; Admin Dose 30 MG; Start 02/15/17 at 06:00 Levothyroxine Sodium (Synthroid) 50 mcg DAILY@06 GTB Last administered on 02/26 05:51; Admin Dose 50 MCG; Start 02/15/17 at 06:00 Lorazepam (Ativan) 0.5 mg Q6H PRN PO ANXIETY Last administered on 02/14/17 17: 43; Admin Dose 0.5 MG; Start 02/14/17 at 16:30 Miconazole Nitrate (Miconazole 2% Cr) 1 applic BID TOP Last administered on 08:54; Admin Dose 1 APPLIC; Start 02/14/17 at 21:00 Nystatin (Nystatin Powder) 1 applic BID TOP Last administered on 02/26/17 08: 54; Admin Dose 1 APPLIC; Start 02/14/17 at 21:00 Senna (Senokot) 1 tab BID PO Last administered on 02/24/17 21:11; Admin Dose 1 TAB; Start 02/14/17 at 21:00 Sertraline HCl (Zoloft) 25 mg DAILY PO Last administered on 02/26/17 08:53; Admin Dose 25 MG; Start 02/15/17 at 09:00 Zolpidem Tartrate (Ambien) 5 mg HS PRN PO INSOMNIA; Start 02/14/17 at 16:30 Atenolol (Tenormin) 25 mg BID GTB Last administered on 02/26/17 08:52; Admin Dose 25 MG; Start 02/15/17 at 21:00 Fluconazole (Diflucan) 100 mg DAILY PO Last administered on 02/26/17 08:52; Admin Dose 100 MG; Start 02/21/17 at 09:00 Docusate Sodium (Colace Liquid Cup) 100 mg BID GTB Last administered on 09:13; Admin Dose 100 MG; Start 02/21/17 at 09:00 CHARY NICOLAS Feb 26, 2017 17:47
[2017-02-27] VITALS (12 sets, daily range): BP systolic 118–183; BP diastolic 59–79; PULSE 63–70; RESP 17–20
[2017-02-27] MEDS: ALBUTEROL 0.083% (NEB) 2.5 MG/3 ML AMP HHN SCH ×4 (00:02→23:38)
[2017-02-27] MEDS: LANSOPRAZOLE 30 MG CAP GTB SCH (06:13)
[2017-02-27] MEDS: LEVOTHYROXINE 50 MCG TAB GTB SCH (06:13)
[2017-02-27] MEDS: DOCUSATE SODIUM 10 MG/ML (10ML CUP) GTB SCH ×2 (09:00→09:29)
[2017-02-27] MEDS: SENNA TAB PO SCH ×2 (09:29→21:00)
[2017-02-27] MEDS: SERTRALINE 50 MG TAB PO SCH (09:29)
[2017-02-27] MEDS: FLUCONAZOLE 100 MG TAB PO SCH (09:29)
[2017-02-27] MEDS: FERROUS SULFATE 60 MG/ML 5ML CUP GTB SCH (09:29)
[2017-02-27] MEDS: CHLORHEXIDINE GLUCONATE 15 ML UD CUP MT SCH (09:29)
[2017-02-27] MEDS: ATENOLOL 25 MG TAB GTB SCH (09:32)
[2017-02-27] MEDS: HEPARIN 5,000 UNIT/0.5 ML VIAL SC SCH (09:36)
[2017-02-27] MEDS: MICONAZOLE 2% 30 GM CR TOP SCH (09:38)
[2017-02-27] MEDS: NYSTATIN 30 GM POWDER BTL TOP SCH (09:38)
--- NOTE | 2017-02-27 20:46 | PN ---
Date/Time of Note Date/Time of Note DATE: 02/27/17 TIME: 20:46 Assessment/Plan Lines/Catheters IV Catheter Type (from [facility]): Peripheral IV Urinary Cath still in place: No Assessment/Plan Chief Complaint/Hosp Course - Gram-positive cocci bacteremia vs contamination, repeat cultures are negative. Dr Iqbal is following in infection disease consultation - Acute respiratory insufficiency with shortness of breath. Continue tracheostomy care, breathing treatment. - Acute coronary syndrome ruled out. Cardiac enzymes are negative 3 - Dysphagia with PEG. Continue G-tube feeding. - Hypertension, the patient is currently normotensive. - History of thyroid cancer, status post-radiation. Continue Synthroid. - Depression. - History of breast cancer. Status post-bilateral mastectomy. - Anemia. Continue iron supplements. - Protein calorie malnutrition Further recommendations based on clinical course. Plan of care discussed with Dr. Root. Problems: Exam/Review of Systems Vital Signs Vitals Vital Signs Date Time Temp Pulse Resp B/P Pulse Ox O2 Delivery O2 Flow Rate FiO2 02/27/17 20:41 65 02/27/17 20:31 97.9 17 118/59 98 02/27/17 15:04 Nasal Cannula 3.0 Results Result Diagram: 02/25/17 0856 02/25/17 0856 Medications Medications Current Medications Acetaminophen (Tylenol Liquid) 650 mg Q4H PRN GTB PAIN AND OR ELEVATED TEMP Last administered on 02/25/17 20:41; Admin Dose 650 MG; Start 02/14/17 at 16: 30 Chlorhexidine Gluconate (Peridex) 15 ml BID MT Last administered on 02/27/17 09:29; Admin Dose 15 ML; Start 02/14/17 at 21:00 Ferrous Sulfate (Feosol Liquid Cup) 300 mg DAILY GTB Last administered on 02/27 09:29; Admin Dose 300 MG; Start 02/15/17 at 09:00 Heparin Sodium (Porcine) (Heparin (5000 Units/0.5 ml)) 5,000 unit BID SC Last administered on 02/27/17 09:36; Admin Dose 5,000 UNIT; Start 02/14/17 at 21:00 Acetaminophen/ Hydrocodone Bitart ([place] (5/325)) 1 tab Q8 PRN GTB PAIN LEVEL 7 -10 Last administered on 02/23/17 16:02; Admin Dose 1 TAB; Start 02/14/17 at 16 :30 Lactulose (Enulose) 20 gm DAILY PRN PO CONSTIPATION; Start 02/14/17 at 16:30 Lansoprazole (Prevacid) 30 mg DAILY@06 GTB Last administered on 02/27/17 06: 13; Admin Dose 30 MG; Start 02/15/17 at 06:00 Levothyroxine Sodium (Synthroid) 50 mcg DAILY@06 GTB Last administered on 02/27 06:13; Admin Dose 50 MCG; Start 02/15/17 at 06:00 Lorazepam (Ativan) 0.5 mg Q6H PRN PO ANXIETY Last administered on 02/14/17 17: 43; Admin Dose 0.5 MG; Start 02/14/17 at 16:30 Miconazole Nitrate (Miconazole 2% Cr) 1 applic BID TOP Last administered on 09:38; Admin Dose 1 APPLIC; Start 02/14/17 at 21:00 Nystatin (Nystatin Powder) 1 applic BID TOP Last administered on 02/27/17 09: 38; Admin Dose 1 APPLIC; Start 02/14/17 at 21:00 Senna (Senokot) 1 tab BID PO Last administered on 02/27/17 09:29; Admin Dose 1 TAB; Start 02/14/17 at 21:00 Sertraline HCl (Zoloft) 25 mg DAILY PO Last administered on 02/27/17 09:29; Admin Dose 25 MG; Start 02/15/17 at 09:00 Zolpidem Tartrate (Ambien) 5 mg HS PRN PO INSOMNIA; Start 02/14/17 at 16:30 Atenolol (Tenormin) 25 mg BID GTB Last administered on 02/27/17 09:32; Admin Dose 25 MG; Start 02/15/17 at 21:00 Fluconazole (Diflucan) 100 mg DAILY PO Last administered on 02/27/17 09:29; Admin Dose 100 MG; Start 02/21/17 at 09:00 Docusate Sodium (Colace Liquid Cup) 100 mg BID GTB Last administered on 09:13; Admin Dose 100 MG; Start 02/21/17 at 09:00 ROMEO BRIAN Feb 27, 2017 20:46
[2017-02-28] VITALS (11 sets, daily range): BP systolic 108–157; BP diastolic 56–70; PULSE 61–70; RESP 16–20
[2017-02-28] MEDS: NYSTATIN 30 GM POWDER BTL TOP SCH ×3 (01:18→22:01)
[2017-02-28] MEDS: MICONAZOLE 2% 30 GM CR TOP SCH ×3 (01:19→22:01)
[2017-02-28] MEDS: CHLORHEXIDINE GLUCONATE 15 ML UD CUP MT SCH ×3 (01:22→21:58)
[2017-02-28] MEDS: DOCUSATE SODIUM 10 MG/ML (10ML CUP) GTB SCH ×3 (01:22→21:00)
[2017-02-28] MEDS: ATENOLOL 25 MG TAB GTB SCH ×3 (01:23→21:58)
[2017-02-28] MEDS: HEPARIN 5,000 UNIT/0.5 ML VIAL SC SCH ×3 (01:25→22:00)
[2017-02-28] MEDS: LANSOPRAZOLE 30 MG CAP GTB SCH (05:31)
[2017-02-28] MEDS: LEVOTHYROXINE 50 MCG TAB GTB SCH (05:31)
[2017-02-28] MEDS: ALBUTEROL 0.083% (NEB) 2.5 MG/3 ML AMP HHN SCH ×3 (07:49→23:30)
[2017-02-28] MEDS: SERTRALINE 50 MG TAB PO SCH (08:41)
[2017-02-28] MEDS: FLUCONAZOLE 100 MG TAB PO SCH (08:42)
[2017-02-28] MEDS: FERROUS SULFATE 60 MG/ML 5ML CUP GTB SCH (08:42)
[2017-02-28] MEDS: SENNA TAB PO SCH ×2 (08:42→21:00)
--- NOTE | 2017-02-28 19:18 | PN ---
Date/Time of Note Date/Time of Note DATE: 02/28/17 TIME: 19:17 Assessment/Plan VTE Prophylaxis VTE Prophylaxis Intervention: SCD's Lines/Catheters IV Catheter Type (from [facility]): Peripheral IV Urinary Cath still in place: No Assessment/Plan Chief Complaint/Hosp Course Patient denies any shortness of breath, denies chest pain, pending [place] [facility] facility placement Assessment/Plan - Gram-positive cocci bacteremia vs contamination, repeat cultures are negative. Dr Iqbal is following in infection disease consultation - Acute respiratory insufficiency with shortness of breath. Continue tracheostomy care, breathing treatment. - Acute coronary syndrome ruled out. Cardiac enzymes are negative 3 - Dysphagia with PEG. Continue G-tube feeding. - Hypertension, the patient is currently normotensive. - History of thyroid cancer, status post-radiation. Continue Synthroid. - Depression. - History of breast cancer. Status post-bilateral mastectomy. - Anemia. Continue iron supplements. - Protein calorie malnutrition Further recommendations based on clinical course. Plan of care discussed with Dr. Root. Problems: Exam/Review of Systems Vital Signs Vitals Vital Signs Date Time Temp Pulse Resp B/P Pulse Ox O2 Delivery O2 Flow Rate FiO2 02/28/17 16:35 98.4 64 17 108/56 96 02/28/17 08:20 Nasal Cannula 3.0 Intake and Output 02/27/17 02/27/17 02/28/17 15:00 23:00 07:00 Intake Total 1270 ml Balance 1270 ml Exam Constitutional: alert, oriented Head: normocephalic Neck: other (trach) Respiratory: slightly diminished breath sounds Cardiovascular: nl pulses Gastrointestinal: non-tender, other (G-tube), soft Extremities: normal pulses Results Result Diagram: 02/25/1785502/25/17855 Medications Medications Current Medications Acetaminophen (Tylenol Liquid) 650 mg Q4H PRN GTB PAIN AND OR ELEVATED TEMP Last administered on 02/25/17 20:41; Admin Dose 650 MG; Start 02/14/17 at 16: 30 Chlorhexidine Gluconate (Peridex) 15 ml BID MT Last administered on 02/28/17 08:41; Admin Dose 15 ML; Start 02/14/17 at 21:00 Ferrous Sulfate (Feosol Liquid Cup) 300 mg DAILY GTB Last administered on 02/28 08:42; Admin Dose 300 MG; Start 02/15/17 at 09:00 Heparin Sodium (Porcine) (Heparin (5000 Units/0.5 ml)) 5,000 unit BID SC Last administered on 02/28/17 08:43; Admin Dose 5,000 UNIT; Start 02/14/17 at 21:00 Acetaminophen/ Hydrocodone Bitart ([place] (5/325)) 1 tab Q8 PRN GTB PAIN LEVEL 7 -10 Last administered on 02/23/17 16:02; Admin Dose 1 TAB; Start 02/14/17 at 16 :30 Lactulose (Enulose) 20 gm DAILY PRN PO CONSTIPATION; Start 02/14/17 at 16:30 Lansoprazole (Prevacid) 30 mg DAILY@06 GTB Last administered on 02/28/17 05: 31; Admin Dose 30 MG; Start 02/15/17 at 06:00 Levothyroxine Sodium (Synthroid) 50 mcg DAILY@06 GTB Last administered on 02/28 05:31; Admin Dose 50 MCG; Start 02/15/17 at 06:00 Lorazepam (Ativan) 0.5 mg Q6H PRN PO ANXIETY Last administered on 02/14/17 17: 43; Admin Dose 0.5 MG; Start 02/14/17 at 16:30 Miconazole Nitrate (Miconazole 2% Cr) 1 applic BID TOP Last administered on 08:44; Admin Dose 1 APPLIC; Start 02/14/17 at 21:00 Nystatin (Nystatin Powder) 1 applic BID TOP Last administered on 02/28/17 08: 44; Admin Dose 1 APPLIC; Start 02/14/17 at 21:00 Senna (Senokot) 1 tab BID PO Last administered on 02/28/17 08:42; Admin Dose 1 TAB; Start 02/14/17 at 21:00 Sertraline HCl (Zoloft) 25 mg DAILY PO Last administered on 02/28/17 08:41; Admin Dose 25 MG; Start 02/15/17 at 09:00 Zolpidem Tartrate (Ambien) 5 mg HS PRN PO INSOMNIA; Start 02/14/17 at 16:30 Atenolol (Tenormin) 25 mg BID GTB Last administered on 02/28/17 08:41; Admin Dose 25 MG; Start 02/15/17 at 21:00 Docusate Sodium (Colace Liquid Cup) 100 mg BID GTB Last administered on t 08:40; Admin Dose 100 MG; Start 02/21/17 at 09:00 CHARY NICOLAS Feb 28, 2017 19:18
[2017-03-01] VITALS (12 sets, daily range): BP systolic 104–152; BP diastolic 51–68; PULSE 60–70; RESP 16–20
[2017-03-01] MEDS: LANSOPRAZOLE 30 MG CAP GTB SCH (05:19)
[2017-03-01] MEDS: LEVOTHYROXINE 50 MCG TAB GTB SCH (05:19)
[2017-03-01] MEDS: LORAZEPAM 0.5 MG TAB PO PRN (06:21)
[2017-03-01] MEDS: ALBUTEROL 0.083% (NEB) 2.5 MG/3 ML AMP HHN SCH ×3 (07:51→23:06)
[2017-03-01 08:55] LABS: BASOPHILS % 0.6 % (0.0-2.0); EOSINOPHILS # 0.2 10^3/ul (0.0-0.5); EOSINOPHILS % 3.4 % (0.0-7.0); HEMATOCRIT 34.2 % (37.0-47.0); HEMOGLOBIN 10.9 g/dl (12.0-16.0); LYMPHOCYTES # 1.4 10^3/ul (0.8-2.9); LYMPHOCYTES % 22.2 % (15.0-51.0); MEAN CORPUSCULAR HEMOGLOBIN 31.2 pg (29.0-33.0); MEAN CORPUSCULAR HGB CONC 31.9 g/dl (32.0-37.0); MEAN PLATELET VOLUME 9.1 fl (7.4-10.4); MONOCYTE # 0.8 10^3/ul (0.3-0.9); MONOCYTES % 12.9 % (0.0-11.0); NEUTROPHIL # 3.9 10^3/ul (1.6-7.5); NEUTROPHILS % 60.1 % (39.0-77.0); PLATELET COUNT 357 10^3/UL (140-415); RED BLOOD COUNT 3.49 10^6/ul (4.20-5.40); RED CELL DISTRIBUTION WIDTH 15.5 % (11.5-14.5); WHITE BLOOD COUNT 6.5 10^3/ul (4.8-10.8)
[2017-03-01] MEDS: NYSTATIN 30 GM POWDER BTL TOP SCH ×2 (08:58→21:01)
[2017-03-01] MEDS: MICONAZOLE 2% 30 GM CR TOP SCH ×2 (08:58→21:02)
[2017-03-01] MEDS: FERROUS SULFATE 60 MG/ML 5ML CUP GTB SCH (08:58)
[2017-03-01] MEDS: DOCUSATE SODIUM 10 MG/ML (10ML CUP) GTB SCH ×2 (08:58→21:00)
[2017-03-01] MEDS: CHLORHEXIDINE GLUCONATE 15 ML UD CUP MT SCH ×2 (08:58→21:00)
[2017-03-01] MEDS: SERTRALINE 50 MG TAB PO SCH (08:59)
[2017-03-01] MEDS: ATENOLOL 25 MG TAB GTB SCH ×2 (08:59→21:00)
[2017-03-01] MEDS: SENNA TAB PO SCH ×2 (08:59→21:00)
[2017-03-01] MEDS: HEPARIN 5,000 UNIT/0.5 ML VIAL SC SCH ×2 (09:00→21:03)
[2017-03-01 09:26] LABS: CALCIUM 9.7 mg/dl (8.4-10.2); CREATININE 1.06 mg/dl (0.44-1.00); POTASSIUM 5.2 mmol/L (3.5-5.1)
--- NOTE | 2017-03-01 12:06 | PN ---
Date/Time of Note Date/Time of Note DATE: 03/01/17 TIME: 12:05 Assessment/Plan VTE Prophylaxis VTE Prophylaxis Intervention: other Lines/Catheters IV [facility] Type (from [facility]): Peripheral IV Urinary Cath still in place: No Assessment/Plan Chief Complaint/Hosp Course - Gram-positive cocci bacteremia vs contamination, repeat cultures are negative. Dr Iqbal is following in infection disease consultation - Acute respiratory insufficiency with shortness of breath. Continue tracheostomy care, breathing treatment. - Acute coronary syndrome ruled out. Cardiac enzymes are negative 3 - Dysphagia with PEG. Continue G-tube feeding. - Hypertension, the patient is currently normotensive. - History of thyroid cancer, status post-radiation. Continue Synthroid. - Depression. - History of breast cancer. Status post-bilateral mastectomy. - Anemia. Continue iron supplements. - Protein calorie malnutrition Problems: Subjective 24 Hr Interval Summary Free Text/Dictation Patient has no complaints Exam/Review of Systems Vital Signs Vitals Vital Signs Date Time Temp Pulse Resp B/P Pulse Ox O2 Delivery O2 Flow Rate FiO2 03/01/17 11:45 98.2 71 16 152/68 92 03/01/17 07:51 3.0 02/28/17 23:30 Nasal Cannula Intake and Output 02/28/17 02/28/17 03/01/17 15:00 23:00 07:00 Intake Total 1320 ml 1275 ml Balance 1320 ml 1275 ml Exam Constitutional: well developed Head: atraumatic, normocephalic Neck: supple Respiratory: clear to auscultation Cardiovascular: regular rate and rhythm Gastrointestinal: non-tender, soft Extremities: normal pulses Results Result Diagram: 03/01/17 0816 03/01/17 0816 Results 24 hrs Laboratory Tests Test 03/01/17 08:16 White Blood Count 6.5 Red Blood Count 3.49 L Hemoglobin 10.9 L Hematocrit 34.2 L Mean Corpuscular Volume 98.0 Mean Corpuscular Hemoglobin 31.2 Mean Corpuscular Hemoglobin Concent 31.9 L Red Cell Distribution Width 15.5 H Platelet Count 357 Mean Platelet Volume 9.1 Neutrophils % 60.1 Lymphocytes % 22.2 Monocytes % 12.9 H Eosinophils % 3.4 Basophils % 0.6 Nucleated Red Blood Cells % 0.0 Neutrophils # 3.9 Lymphocytes # 1.4 Monocytes # 0.8 Eosinophils # 0.2 Basophils # 0.0 Nucleated Red Blood Cells # 0.0 Sodium Level 139 Potassium Level 5.2 H Chloride Level 96 L Carbon Dioxide Level 33 H Anion Gap 15 Blood Urea Nitrogen 40 H Creatinine 1.06 H Glucose Level 118 Calcium Level 9.7 Medications Medications Current Medications Acetaminophen (Tylenol Liquid) 650 mg Q4H PRN GTB PAIN AND OR ELEVATED TEMP Last administered on 02/25/17 20:41; Admin Dose 650 MG; Start 02/14/17 at 16: 30 Chlorhexidine Gluconate (Peridex) 15 ml BID MT Last administered on 03/01/17 08:58; Admin Dose 15 ML; Start 02/14/17 at 21:00 Ferrous Sulfate (Feosol Liquid Cup) 300 mg DAILY GTB Last administered on 03/01 08:58; Admin Dose 300 MG; Start 02/15/17 at 09:00 Heparin Sodium (Porcine) (Heparin (5000 Units/0.5 ml)) 5,000 unit BID SC Last administered on 03/01/17 09:00; Admin Dose 5,000 UNIT; Start 02/14/17 at 21:00 Acetaminophen/ Hydrocodone Bitart ([place] (5/325)) 1 tab Q8 PRN GTB PAIN LEVEL 7 -10 Last administered on 02/23/17 16:02; Admin Dose 1 TAB; Start 02/14/17 at 16 :30 Lactulose (Enulose) 20 gm DAILY PRN PO CONSTIPATION; Start 02/14/17 at 16:30 Lansoprazole (Prevacid) 30 mg DAILY@06 GTB Last administered on 03/01/17 05: 19; Admin Dose 30 MG; Start 02/15/17 at 06:00 Levothyroxine Sodium (Synthroid) 50 mcg DAILY@06 GTB Last administered on 03/01 05:19; Admin Dose 50 MCG; Start 02/15/17 at 06:00 Lorazepam (Ativan) 0.5 mg Q6H PRN PO ANXIETY Last administered on 03/01/17 06 :21; Admin Dose 0.5 MG; Start 02/14/17 at 16:30 Miconazole Nitrate (Miconazole 2% Cr) 1 applic BID TOP Last administered on 08:58; Admin Dose 1 APPLIC; Start 02/14/17 at 21:00 Nystatin (Nystatin Powder) 1 applic BID TOP Last administered on 03/01/17 08: 58; Admin Dose 1 APPLIC; Start 02/14/17 at 21:00 Senna (Senokot) 1 tab BID PO Last administered on 03/01/17 08:59; Admin Dose 1 TAB; Start 02/14/17 at 21:00 Sertraline HCl (Zoloft) 25 mg DAILY PO Last administered on 03/01/17 08:59; Admin Dose 25 MG; Start 02/15/17 at 09:00 Zolpidem Tartrate (Ambien) 5 mg HS PRN PO INSOMNIA; Start 02/14/17 at 16:30 Atenolol (Tenormin) 25 mg BID GTB Last administered on 03/01/17 08:59; Admin Dose 25 MG; Start 02/15/17 at 21:00 Docusate Sodium (Colace Liquid Cup) 100 mg BID GTB Last administered on 08:58; Admin Dose 100 MG; Start 02/21/17 at 09:00 EZIO CANO Mar 01, 2017 12:06
[2017-03-01] MEDS: ACETAMINOPHEN 650MG/20.3ML CUP GTB PRN (22:56)
[2017-03-02] VITALS (12 sets, daily range): BP systolic 98–133; BP diastolic 51–60; PULSE 60–68; RESP 16–20
[2017-03-02] MEDS: LEVOTHYROXINE 50 MCG TAB GTB SCH (06:02)
[2017-03-02] MEDS: LANSOPRAZOLE 30 MG CAP GTB SCH (06:02)
[2017-03-02] MEDS: ALBUTEROL 0.083% (NEB) 2.5 MG/3 ML AMP HHN SCH ×2 (08:01→16:33)
[2017-03-02] MEDS: SERTRALINE 50 MG TAB PO SCH (08:57)
[2017-03-02] MEDS: CHLORHEXIDINE GLUCONATE 15 ML UD CUP MT SCH ×2 (08:57→20:54)
[2017-03-02] MEDS: DOCUSATE SODIUM 10 MG/ML (10ML CUP) GTB SCH ×2 (08:57→20:59)
[2017-03-02] MEDS: ATENOLOL 25 MG TAB GTB SCH ×2 (08:57→21:00)
[2017-03-02] MEDS: SENNA TAB PO SCH ×2 (08:57→21:01)
[2017-03-02] MEDS: FERROUS SULFATE 60 MG/ML 5ML CUP GTB SCH (08:57)
[2017-03-02] MEDS: MICONAZOLE 2% 30 GM CR TOP SCH ×2 (09:01→21:09)
[2017-03-02] MEDS: HEPARIN 5,000 UNIT/0.5 ML VIAL SC SCH ×2 (09:01→20:57)
[2017-03-02] MEDS: NYSTATIN 30 GM POWDER BTL TOP SCH ×2 (09:01→21:09)
--- NOTE | 2017-03-02 13:05 | PN ---
Date/Time of Note Date/Time of Note DATE: 03/02/17 TIME: 13:05 Assessment/Plan VTE Prophylaxis VTE Prophylaxis Intervention: other Lines/Catheters IV Catheter Type (from [facility]): [place] Urinary Cath still in place: No Assessment/Plan Chief Complaint/Hosp Course - Gram-positive cocci bacteremia vs contamination, repeat cultures are negative. Dr Iqbal is following in infection disease consultation - Acute respiratory insufficiency with shortness of breath. Continue tracheostomy care, breathing treatment. - Acute coronary syndrome ruled out. Cardiac enzymes are negative 3 - Dysphagia with PEG. Continue G-tube feeding. - Hypertension, the patient is currently normotensive. - History of thyroid cancer, status post-radiation. Continue Synthroid. - Depression. - History of breast cancer. Status post-bilateral mastectomy. - Anemia. Continue iron supplements. - Protein calorie malnutrition Problems: Subjective 24 Hr Interval Summary Free Text/Dictation Patient has no complaints Exam/Review of Systems Vital Signs Vitals Vital Signs Date Time Temp Pulse Resp B/P Pulse Ox O2 Delivery O2 Flow Rate FiO2 03/02/17 11:58 98.4 64 17 98/53 100 03/02/17 08:30 Nasal Cannula 3.0 Intake and Output 03/01/17 03/01/17 03/02/17 15:00 23:00 07:00 Intake Total 1260 ml 1270 ml Balance 1260 ml 1270 ml Exam Constitutional: well developed Head: atraumatic, normocephalic Neck: supple Respiratory: clear to auscultation Cardiovascular: regular rate and rhythm Gastrointestinal: non-tender, soft Extremities: normal pulses Results Result Diagram: 03/01/1716 03/01/1716 Medications Medications Current Medications Acetaminophen (Tylenol Liquid) 650 mg Q4H PRN GTB PAIN AND OR ELEVATED TEMP Last administered on 03/01/17 22:56; Admin Dose 650 MG; Start 02/14/17 at 16: 30 Chlorhexidine Gluconate (Peridex) 15 ml BID MT Last administered on 03/02/17 08:57; Admin Dose 15 ML; Start 02/14/17 at 21:00 Ferrous Sulfate (Feosol Liquid Cup) 300 mg DAILY GTB Last administered on 03/02 08:57; Admin Dose 300 MG; Start 02/15/17 at 09:00 Heparin Sodium (Porcine) (Heparin (5000 Units/0.5 ml)) 5,000 unit BID SC Last administered on 03/02/17 09:01; Admin Dose 5,000 UNIT; Start 02/14/17 at 21:00 Acetaminophen/ Hydrocodone Bitart ([place] (5/325)) 1 tab Q8 PRN GTB PAIN LEVEL 7 -10 Last administered on 02/23/17 16:02; Admin Dose 1 TAB; Start 02/14/17 at 16 :30 Lactulose (Enulose) 20 gm DAILY PRN PO CONSTIPATION; Start 02/14/17 at 16:30 Lansoprazole (Prevacid) 30 mg DAILY@06 GTB Last administered on 03/02/17 06: 02; Admin Dose 30 MG; Start 02/15/17 at 06:00 Levothyroxine Sodium (Synthroid) 50 mcg DAILY@06 GTB Last administered on 03/02 06:02; Admin Dose 50 MCG; Start 02/15/17 at 06:00 Lorazepam (Ativan) 0.5 mg Q6H PRN PO ANXIETY Last administered on 03/01/17 06 :21; Admin Dose 0.5 MG; Start 02/14/17 at 16:30 Miconazole Nitrate (Miconazole 2% Cr) 1 applic BID TOP Last administered on 09:01; Admin Dose 1 APPLIC; Start 02/14/17 at 21:00 Nystatin (Nystatin Powder) 1 applic BID TOP Last administered on 03/02/17 09: 01; Admin Dose 1 APPLIC; Start 02/14/17 at 21:00 Senna (Senokot) 1 tab BID PO Last administered on 03/02/17 08:57; Admin Dose 1 TAB; Start 02/14/17 at 21:00 Sertraline HCl (Zoloft) 25 mg DAILY PO Last administered on 03/02/17 08:57; Admin Dose 25 MG; Start 02/15/17 at 09:00 Zolpidem Tartrate (Ambien) 5 mg HS PRN PO INSOMNIA; Start 02/14/17 at 16:30 Atenolol (Tenormin) 25 mg BID GTB Last administered on 03/02/17 08:57; Admin Dose 25 MG; Start 02/15/17 at 21:00 Docusate Sodium (Colace Liquid Cup) 100 mg BID GTB Last administered on 08:57; Admin Dose 100 MG; Start 02/21/17 at 09:00 EZIO CANO Mar 02, 2017 13:05
[2017-03-03] VITALS (10 sets, daily range): BP systolic 118–136; BP diastolic 58–63; PULSE 62–68; RESP 16–19
[2017-03-03] MEDS: ACETAMINOPHEN 650MG/20.3ML CUP GTB PRN (00:11)
[2017-03-03] MEDS: LEVOTHYROXINE 50 MCG TAB GTB SCH (06:21)
[2017-03-03] MEDS: LANSOPRAZOLE 30 MG CAP GTB SCH (06:21)
[2017-03-03 07:50] LABS: BASOPHILS % 0.7 % (0.0-2.0); EOSINOPHILS # 0.3 10^3/ul (0.0-0.5); EOSINOPHILS % 4.6 % (0.0-7.0); HEMOGLOBIN 10.7 g/dl (12.0-16.0); LYMPHOCYTES # 1.7 10^3/ul (0.8-2.9); LYMPHOCYTES % 30.2 % (15.0-51.0); MEAN CORPUSCULAR HGB CONC 32.4 g/dl (32.0-37.0); MEAN CORPUSCULAR VOLUME 95.7 fl (82.0-101.0); MEAN PLATELET VOLUME 9.8 fl (7.4-10.4); MONOCYTE # 0.9 10^3/ul (0.3-0.9); MONOCYTES % 15.5 % (0.0-11.0); NEUTROPHIL # 2.7 10^3/ul (1.6-7.5); NEUTROPHILS % 48.3 % (39.0-77.0); PLATELET COUNT 342 10^3/UL (140-415); RED BLOOD COUNT 3.45 10^6/ul (4.20-5.40); RED CELL DISTRIBUTION WIDTH 15.6 % (11.5-14.5); WHITE BLOOD COUNT 5.7 10^3/ul (4.8-10.8)
[2017-03-03] MEDS: ALBUTEROL 0.083% (NEB) 2.5 MG/3 ML AMP HHN SCH ×3 (08:05→15:15)
[2017-03-03 08:31] LABS: ALBUMIN 3.4 g/dl (3.3-4.9); ALBUMIN/GLOBULIN RATIO 0.77; BILIRUBIN,INDIRECT 0.2 mg/dl (0-1.1); BILIRUBIN,TOTAL 0.2 mg/dl (0.2-1.3); CALCIUM 9.6 mg/dl (8.4-10.2); CREATININE 0.97 mg/dl (0.44-1.00); POTASSIUM 4.6 mmol/L (3.5-5.1); TOTAL PROTEIN 7.8 g/dl (6.1-8.1)
[2017-03-03] MEDS: MICONAZOLE 2% 30 GM CR TOP SCH (09:00)
[2017-03-03] MEDS: NYSTATIN 30 GM POWDER BTL TOP SCH (09:00)
[2017-03-03] MEDS: CHLORHEXIDINE GLUCONATE 15 ML UD CUP MT SCH (09:00)
[2017-03-03] MEDS: FERROUS SULFATE 60 MG/ML 5ML CUP GTB SCH (10:43)
[2017-03-03] MEDS: DOCUSATE SODIUM 10 MG/ML (10ML CUP) GTB SCH (10:44)
[2017-03-03] MEDS: SERTRALINE 50 MG TAB PO SCH (10:44)
[2017-03-03] MEDS: ATENOLOL 25 MG TAB GTB SCH (10:44)
[2017-03-03] MEDS: SENNA TAB PO SCH (10:45)
[2017-03-03] MEDS: HEPARIN 5,000 UNIT/0.5 ML VIAL SC SCH (10:47)
--- NOTE | 2017-03-03 19:18 | DS ---
Date/Time of Note Date/Time of Note DATE: 03/03/17 TIME: 19:15 Discharge Summary Admission/Discharge Info Admit Date/Time Feb 14, 2017 at 13:20 Discharge Date/Time Patient Condition: Stable Hx of Present Illness The patient is a 77-year-old female, with extensive past medical history positive for thyroid cancer, status post-radiation in 2007. Status post- bilateral mastectomy for breast cancer. The patient is status post-cardiopulmonary arrest in 12/2016 and was treated and at [facility]. Was treated for right hemothorax and aspiration pneumonia. Patient also underwent a tracheostomy and G-tube placement at that time. The patient was subsequently transferred to [facility] and was recuperating to acute rehabilitation for pulmonary debility. Patient underwent a swallow evaluation. However, with notion of aspiration. Patient continue G-tube feeding. The patient also had a tracheostomy which was capped off. The patient developed shortness of breath and also became tachycardic. Patient underwent chest x-ray which revealed chronic scarring of both lung apices, right more than left. No acute cardiopulmonary abnormality. The patient also underwent brain CT, which revealed no acute intracranial hemorrhage. Extensive periventricular and subcortical hypo- attenuation suggesting advanced chronic macrovascular changes, some moderate left maxillary sinus air-fluid level suggesting acute sinusitis. The patient was admitted to [facility] to telemetry for evaluation and treatment. Hospital Course - Acute respiratory insufficiency with shortness of breath, resolved. continue tracheostomy care, breathing treatment. Patient is stable on supplemental oxygen via nasal cannula, pending arrangements for senior living facility transfer. - Gram-positive cocci bacteremia vs contamination, repeat cultures are negative. Dr Iqbal is following in infection disease consultation - Acute coronary syndrome ruled out. Cardiac enzymes are negative 3 - Dysphagia with PEG. Continue G-tube feeding. - Hypertension, the patient is currently normotensive. - History of thyroid cancer, status post-radiation. Continue Synthroid. - Depression. - History of breast cancer. Status post-bilateral mastectomy. - Anemia. Continue iron supplements. - Protein calorie malnutrition Home Meds No Active Prescriptions or Reported Meds Primary Care Provider Vladimir Root MD Pending Labs Laboratory Tests Test 03/03/17 06:16 White Blood Count 5.710^3/ul (4.8-10.8) Red Blood Count 3.4510^6/ul (4.20-5.40) Hemoglobin 10.7g/dl (12.0-16.0) Hematocrit 33.0% (37.0-47.0) Mean Corpuscular Volume 95.7fl (82.0-101.0) Mean Corpuscular Hemoglobin 31.0pg (29.0-33.0) Mean Corpuscular Hemoglobin Concent 32.4g/dl (32.0-37.0) Red Cell Distribution Width 15.6% (11.5-14.5) Platelet Count 45113^3/UL (140-415) Mean Platelet Volume 9.8fl (7.4-10.4) Neutrophils % 48.3% (39.0-77.0) Lymphocytes % 30.2% (15.0-51.0) Monocytes % 15.5% (0.0-11.0) Eosinophils % 4.6% (0.0-7.0) Basophils % 0.7% (0.0-2.0) Nucleated Red Blood Cells % 0.0/100WBC (0.0-0.0) Neutrophils # 2.710^3/ul (1.6-7.5) Lymphocytes # 1.710^3/ul (0.8-2.9) Monocytes # 0.910^3/ul (0.3-0.9) Eosinophils # 0.310^3/ul (0.0-0.5) Basophils # 0.010^3/ul (0.0-0.1) Nucleated Red Blood Cells # 0.010^3/ul (0.0-0.0) Sodium Level 136mmol/L (135-144) Potassium Level 4.6mmol/L (3.5-5.1) Chloride Level 96mmol/L (97-110) Carbon Dioxide Level 31mmol/L (21-31) Anion Gap 14 (8-16) Blood Urea Nitrogen 41mg/dl (7-20) Creatinine 0.97mg/dl (0.44-1.00) Glucose Level 102mg/dl (70-220) Calcium Level 9.6mg/dl (8.4-10.2) Magnesium Level 1.8mg/dl (1.7-2.5) Total Bilirubin 0.2mg/dl (0.2-1.3) Direct Bilirubin 0.00mg/dl (0.00-0.20) Indirect Bilirubin 0.2mg/dl (0-1.1) Aspartate Amino Transf (AST/SGOT) 40IU/L (15-46) Alanine Aminotransferase (ALT/SGPT) 48IU/L (13-69) Alkaline Phosphatase 105IU/L (42-121) Total Protein 7.8g/dl (6.1-8.1) Albumin 3.4g/dl (3.3-4.9) Globulin 4.40g/dl (1.3-3.2) Albumin/Globulin Ratio 0.77 CHARY NICOLAS Mar 03, 2017 19:18
== END 2017-03-03 19:42 | DRG 189 ==
LOC: MS4 13:20
PROVIDERS: ADMIT Internal Medicine; ATTEND Internal Medicine
DX: J96.20 Acute and chronic respiratory failure, unspecified whether with hypoxia or hypercapnia (principal); E46 Unspecified protein-calorie malnutrition; R13.10 Dysphagia, unspecified; R06.89 Other abnormalities of breathing; N39.0 Urinary tract infection, site not specified; B95.8 Unspecified staphylococcus as the cause of diseases classified elsewhere; I10 Essential (primary) hypertension; D64.9 Anemia, unspecified; F32.9 Major depressive disorder, single episode, unspecified; Z68.26 Body mass index [BMI] 26.0-26.9, adult; Z85.850 Personal history of malignant neoplasm of thyroid; Z85.3 Personal history of malignant neoplasm of breast; Z90.13 Acquired absence of bilateral breasts and nipples; Z92.3 Personal history of irradiation; Z86.74 Personal history of sudden cardiac arrest
CPT/HCPCS: 36430; 71010; 80048; 80053; 80202; 82962; 83735; 84484; 85025; 86850; 86870; 86900; 86901; 86902; 86920; 87040; 87086; 93005; 94640; 94664; 97110; 97116; 97162; 97530; J1644; J3370; J7030; J7040; J7050; P9016